=== PATIENT | female | born 1975 | race Caucasian/White ===

== ENCOUNTER 2019-11-09 21:44 | Inpatient (IN) | payer OTHER ==
[2019-11-09] MEDS ORDERED: SODIUM CHLORIDE 0.9% 500 ML INFUS.BAG IV ONE (22:24)
[2019-11-09] MEDS ORDERED: PANTOPRAZOLE SODIUM 40 MG VIAL IVPUSH ONE (22:25)
[2019-11-09] MEDS ORDERED: PANTOPRAZOLE SODIUM 40 MG VIAL ONE (22:30)
[2019-11-09] MEDS ORDERED: ONDANSETRON 4 MG/2 ML VIAL ONE (22:30)
[2019-11-09] MEDS ORDERED: ONDANSETRON 4 MG/2 ML VIAL IVPUSH ONE (22:39)
[2019-11-09] MEDS ORDERED: SODIUM CHLORIDE 0.9% 1000 ML INFUS.BAG IV ONE (22:46)
[2019-11-09 22:48] LABS: BASO % 0.2 % (0-2.0); EOS % 0.2 % (0-4.5); HEMATOCRIT 43.8 % (32.4-45.2); HEMOGLOBIN 14.6 GM/dL (10.7-15.3); LYMPH % 7.9 % (8-40); MCH 30.9 pg (25.7-33.7); MCHC 33.2 g/dl (32.0-36.0); MEAN CELL VOLUME 92.9 fl (80-96); MEAN PLT VOLUME 10.3 fl (7.5-11.1); MONO % 2.3 % (3.8-10.2); NEUT % 89.4 % (42.8-82.8); PLATELET COUNT 115 K/MM3 (134-434); RBC 4.72 M/mm3 (3.60-5.2); RDW 13.4 % (11.6-15.6); WHITE BLOOD COUNT 10.3 K/mm3 (4.0-10.0)
--- NOTE | 2019-11-09 22:53 | PDOC ---
History of Present Illness - General Chief Complaint: Nausea/Vomiting Stated Complaint: NAUSEA & VOMITING Time Seen by Provider: 11/09/19 22:08 - History of Present Illness Initial Comments: 44F PMH AF on metoprolol not on AC BIBEMS for severe N/V shortly after taking two new abx. Sx started two hours prior to arrival. Brown vomitus. PO intolerant. Last meal was chicken soup at 5pm. Pt being treated for sinusitis. Son is sick with similar sinusitis sx. Denies NSAIDs, etoh. prior cholecystectomy. No abd pain. Started having watery stool in ED. PCP Dr. Zhang Allergies reviewed Denies tobacco, etoh, drugs Past History - Past Medical History Allergies/Adverse Reactions: Allergies Allergy/AdvReac Type Severity Reaction Status Date / Time clarithromycin [From Biaxin] Allergy Verified 08/13/15 12:42 meperidine HCl [From Demerol] Allergy Verified 03/05/12 17:29 CODINE AdvReac Uncoded 11/10/19 01:42 Home Medications: Ambulatory Orders Fluoxetine HCl [Prozac -] 40 mg PO DAILY 03/05/12 Azithromycin [Zithromax Z-RASHMI (5 DAYS) -] 250 mg PO DAILY #6 tablet 08/13/15 Metoprolol Succinate [Toprol Xl] 25 mg PO DAILY 12/27/18 Cardiac Disorders: Yes (IRREGULAR HEART BEAT) COPD: No Psychiatric Problems: Yes (DEPRESSION) - Surgical History Cholecystectomy: Yes - Reproductive History (#): 2 Para: 2 - Psycho Social/Smoking Cessation Hx Smoking History: Current every day smoker Have you smoked in the past 12 months: Yes Number of Cigarettes Smoked Daily: 10 'Breaking Loose' booklet given: 08/13/15 Hx Alcohol Use: No Drug/Substance Use Hx: No Substance Use Type: None Review of Systems - Review of Systems Able to Perform ROS?: Yes Comments:: CONSTITUTIONAL: Endorses F / C HEENT: Endorses lightheadedness, dizziness, sore throat, rhinorrhea RESP: Endorses cough. Denies SOB, orthopnea, [place] CARD: Denies chest pain, palpitations GI: Endorses N/V, watery stool. Denies abdominal pain, bloody stool : Denies dysuria, frequency SKIN: Denies rashes NEURO: Denies numbness, tingling, weakness MSK: Denies back pain *Physical Exam - Physical Exam GEN: Sick appearing, NAD, pale. AAOx3 HEENT: NC/AT, EOMI, PERRLA. No facial asymmetry. Normal voice. Supple neck w/ FROM. CV: S1/S2, RRR, no m/r/g LUNG: CTAB, no wheezes, crackles, rales, rhonchi. GI: soft, ndnt, +BS, no guarding, no rebound. No masses. Neg CVAT b/l. EXTREMITIES: No obvious deformities of all extremities. SKIN: warm, dry, normal turgor PSYCH: normal mood and affect NEURO: Moving all extremities well. Ambulates w/ normal gait. ED Treatment Course - LABORATORY CBC & Chemistry Diagram: 11/11/19 05:18 11/11/19 05:18 - Medications Given in the ED: ED Medications Discontinued Medications Generic Name Dose Route Start Last Admin Trade Name Freq PRN Reason Stop Dose Admin Ondansetron HCl 4 mg 11/09/19 22:39 11/09/19 22:40 Zofran Injection IVPUSH 11/09/19 22:40 4 mg ONCE ONE Administration Pantoprazole Sodium 40 mg 11/09/19 22:25 11/09/19 22:40 Protonix Iv IVPUSH 11/09/19 22:26 40 mg ONCE ONE Administration Sodium Chloride 1,000 ml 11/09/19 22:24 11/09/19 22:40 Normal Saline - IV 11/09/19 22:25 1,000 ml ONCE ONE Administration Medical Decision Making - Medical Decision Making 11/09/19 22:43 44F BIBEMS for severe N/V soon after taking 2 new abx for sinusitis. Nontender exam. - CBC, CMP, Cardiac, Coags - UA, Preg - EKG - nausea ctrl - fluids Labs reviewed Elevated AST / ALT Obtain RUQ US 11/10/19 00:08 signed out to PM team Discharge - Discharge Information Problems reviewed: Yes Clinical Impression/Diagnosis: Intractable nausea and vomiting Condition: Guarded - Follow up/Referral - Patient Discharge Instructions - Post Discharge Activity
[2019-11-09 23:01] LABS: INR 1.02 (0.83-1.09)
[2019-11-09 23:04] LABS: ACTIVATED PTT 29.3 SECONDS (25.2-36.5)
[2019-11-09 23:16] LABS: ALBUMIN 4.2 g/dl (3.4-5.0); ALK PHOS 100 U/L (45-117); ANION GAP 8 MMOL/L (8-16); BILIRUBIN,TOTAL 0.4 mg/dL (0.2-1); BLOOD UREA NITROGEN 10.8 mg/dL (7-18); CALCIUM 9.4 mg/dL (8.5-10.1); CHLORIDE 103 mmol/L (98-107); CO2 28 mmol/L (21-32); CREATININE 0.8 mg/dL (0.55-1.3); GLUCOSE,RANDOM 153 mg/dL (74-106); LIPASE 178 U/L (73-393); POTASSIUM 3.8 mmol/L (3.5-5.1); SGOT/AST 95 U/L (15-37); SGPT/ALT 109 U/L (13-61); SODIUM 138 mmol/L (136-145); TOT PROT 7.6 g/dl (6.4-8.2)
[2019-11-09] MEDS ORDERED: METOCLOPRAMIDE HCL INJECTION 10 MG/2 ML VIAL IVPUSH ONE (23:27)
--- NOTE | 2019-11-09 23:38 | PDOC ---
Documentation entered by Ginny Wolf SCRIBE, acting as scribe for Gloria Carter DO. Gloria Carter DO: This documentation has been prepared by the naila, Ginny Wolf SCRIBE, under my direction and personally reviewed by me in its entirety. I confirm that the documentation accurately reflects all work, treatment, procedures, and medical decision making performed by me. Attending Attestation - Resident Resident Name: Reilly Murphy - ED Attending Attestation I have performed the following: I have examined & evaluated the patient, The case was reviewed & discussed with the resident, I agree w/resident's findings & plan, Exceptions are as noted - HPI HPI: 11/09/19 22:47 Patient is a 44 year old female with a significant PMH of A- Fib on metoprolol who presents to the ED with 2 hours of nausea and vomiting. Pt states her symptoms began after taking 2 newly prescribed antibiotics. She denies recent fevers, chills, headache or dizziness. She denies recent dysuria, frequency, urgency or hematuria. She denies recent chest pain or shortness of breath. - Physicial Exam PE: 11/09/19 23:35 Gen: aaox3, vomiting, dehydrated, pale heent: dry mm, cracked tongue neck: supple heart: +s1s2 tachy lungs: cta b/l abd: soft, mild diffuse ttp, no rebound or guarding, actively vomiting ext: no c/c/e, ambulatory in the ER with a steady gait - Medical Decision Making 11/09/19 23:36 a/p: 44yo female recently dx with sinusitis with n/v/d tonight -vomiting after taking abx - amox and eating chicken soup -no hives, no pruritis, no tongue or lip swelling -pt with n/v/d upon arrival -pt pale, weak -pt appears dehydrated -will send labs, ekg, ivf hydration, zofran, pepcid -will monitor and reassess 11/09/19 23:37 pt states still nauseated, no longer vomiting elevated lft, will send for ultrasound 11/09/19 23:37 mildly elevated wbc 11/10/19 01:14 pt is s/p leslye, ultrasound pending 11/10/19 01:16 ultrasound does not show an acute finding 11/10/19 01:21 pt with persistent n/v despite meds will add ativan 11/10/19 01:22 microblog sent to [facility] for admission 11/10/19 01:44 case discussed with [facility] who accepts pt to service for intractable n/v Discharge - Discharge Information Problems reviewed: Yes Clinical Impression/Diagnosis: Intractable nausea and vomiting Condition: Guarded - Admission Yes - Follow up/Referral Referrals: Ginny Zhang MD [Primary Care Provider] - - Patient Discharge Instructions - Post Discharge Activity
[2019-11-09] MEDS ORDERED: METOCLOPRAMIDE HCL INJECTION 10 MG/2 ML VIAL ONE (23:55)
[2019-11-10] MEDS ORDERED: LORazepam 2 MG/ML SDV VIAL ONE ×2 (01:25→11:38)
--- NOTE | 2019-11-10 01:50 | PDOC ---
*Physical Exam - Vital Signs Last Vital Signs Temp Pulse Resp BP Pulse Ox 98.3 F 61 18 131/77 100 11/09/19 22:15 11/10/19 01:15 11/10/19 01:15 11/10/19 01:15 11/10/19 01:15 ED Treatment Course - LABORATORY CBC & Chemistry Diagram: 11/09/19 22:35 11/09/19 22:35 - ADDITIONAL ORDERS Additional order review: Laboratory Results 11/09/19 11/09/19 11/09/19 22:35 22:35 22:35 PT with INR 12.00 INR 1.02 PTT (Actin FS) 29.3 Sodium Potassium Chloride Carbon Dioxide Anion Gap BUN Creatinine Est GFR (CKD-EPI)AfAm Est GFR (CKD-EPI)NonAf Random Glucose Calcium Total Bilirubin AST ALT Alkaline Phosphatase Creatine Kinase Troponin I Total Protein Albumin Lipase Serum , Qual Negative Blood Type O POSITIVE Antibody Screen Negative 11/09/19 11/09/19 22:35 22:35 PT with INR INR PTT (Actin FS) Sodium 138 Potassium 3.8 Chloride 103 Carbon Dioxide 28 Anion Gap 8 BUN 10.8 Creatinine 0.8 Est GFR (CKD-EPI)AfAm 105.39 Est GFR (CKD-EPI)NonAf 90.93 Random Glucose 153 H Calcium 9.4 Total Bilirubin 0.4 AST 95 H ALT 109 H Alkaline Phosphatase 100 Creatine Kinase 68 Cancelled Troponin I < 0.02 Cancelled Total Protein 7.6 Albumin 4.2 Lipase 178 Serum , Qual Blood Type Antibody Screen 11/09/19 22:35 RBC 4.72 MCV 92.9 MCHC 33.2 RDW 13.4 MPV 10.3 Neutrophils % 89.4 H Lymphocytes % 7.9 L Monocytes % 2.3 L Eosinophils % 0.2 Basophils % 0.2 - Medications Given in the ED: ED Medications Discontinued Medications Generic Name Dose Route Start Last Admin Trade Name Freq PRN Reason Stop Dose Admin Lorazepam 1 mg 11/10/19 01:20 11/10/19 01:30 Ativan Injection - IVPUSH 11/10/19 01:21 1 mg ONCE ONE Administration Metoclopramide HCl 10 mg 11/09/19 23:27 11/10/19 00:02 Reglan Injection - IVPUSH 11/09/19 23:28 10 mg ONCE ONE Administration Ondansetron HCl 4 mg 11/09/19 22:39 11/09/19 22:40 Zofran Injection IVPUSH 11/09/19 22:40 4 mg ONCE ONE Administration Pantoprazole Sodium 40 mg 11/09/19 22:25 11/09/19 22:40 Protonix Iv IVPUSH 11/09/19 22:26 40 mg ONCE ONE Administration Sodium Chloride 1,000 ml 11/09/19 22:24 11/09/19 22:40 Normal Saline - IV 11/09/19 22:25 1,000 ml ONCE ONE Administration Sodium Chloride 1,000 ml 11/09/19 22:46 11/10/19 00:01 Normal Saline - IV 11/09/19 22:47 1,000 ml ONCE ONE Administration Medical Decision Making - Medical Decision Making 11/10/19 01:48 44F BIBEMS for severe N/V soon after taking 2 new abx for sinusitis. Nontender exam. -labs with mildly elevated ALT and AST, WBC 10.3 -will f/u abd US 11/10/19 01:49 US without signs of acute leslye persistent n/v; will administer ativan endorsed to admitting team for persistent n/v and need for IVF; admitted to Dr zhao Discharge - Discharge Information Problems reviewed: Yes Clinical Impression/Diagnosis: Intractable nausea and vomiting Condition: Guarded - Follow up/Referral Referrals: Ginny Zhang MD [Primary Care Provider] - - Patient Discharge Instructions - Post Discharge Activity
--- NOTE | 2019-11-10 02:11 | PN ---
Teaching Attending Note Name of Resident: Reilly Phillips ATTENDING PHYSICIAN STATEMENT I saw and evaluated the patient. I reviewed the resident's note and discussed the case with the resident. I agree with the resident's findings and plan as documented. SUBJECTIVE: Patient is a 44 year old woman with a PMH of Depression, Pancreatitis, Cholecystectomy, Tobacco use and AFib (not on anticoagulation) who presents to the ER with 2 hours of nausea and vomiting. Patient states her symptoms began after taking 2 newly prescribed antibiotics for sinusitis (?Amoxicillin). Her son is sick with similar sinusitis symptoms. Last meal was chicken soup at 5 pm. She denies recent fevers, chills, chest pain, SOB, headache, dizziness, dysuria, frequency, urgency or hematuria. Started having watery stool in ER. No recent travel. Denies alcohol, tobacco or any other illicit drug use besides marijuana. Serum test was negative in the ER. OBJECTIVE: Alert Vital Signs Period Temp Pulse Resp BP Sys/Hall Pulse Ox Last 24 Hr 98.3 F 61-67 18-18 131-135/77-82 100-100 HEENT: No Jaundice, eye redness or discharge, PERRLA, EOMI. Normocephalic, atraumatic. External ears are normal and hearing is grossly intact. No nasal discharge. Neck: Supple, nontender. No palpable adenopathy or thyromegaly. No JVD Chest: Good effort. Clear to auscultation and percussion. Heart: Regular. No S3, rub or murmur Abdomen: Not distended, soft, nontender and no HSM. No rebound or guarding. Normal bowel sounds. Ext: Peripheral pulses intact. No leg edema. Skin: Warm and dry. No petechiae, rash or ecchymosis. Neuro: Alert. Oriented x3. CN 2-12 grossly intact. Sensation grossly intact in all four extremities and DTR are symmetric. Psych: Appropriate mood and affect. Good insight. Home Medications Medication Instructions Recorded Fluoxetine HCl [Prozac] 40 mg PO DAILY 08/13/15 Metoprolol Succinate [Toprol Xl] 25 mg PO DAILY 12/27/18 Abnormal Lab Results 11/09/19 11/09/19 22:35 22:35 WBC 10.3 H Plt Count 115 L Absolute Neuts (auto) 9.2 H Neutrophils % 89.4 H Lymphocytes % 7.9 L Monocytes % 2.3 L Random Glucose 153 H AST 95 H ALT 109 H ASSESSMENT AND PLAN: 1. Gastroenteritis - Sonogram of the abdomen didnot reveal any acute abnormality. Low platelets and elevated LFTs are concerning. Will get stat urinalysis, urine toxicology, EKG, CT abdomen/pelvis with contrast, CXR and hepatitis serology. Send diarrheal stool for ova&parasites, leukocytes and C.diff toxin. Check HbA1c. Continue IV NS. Will decide if she needs antibiotics after workup is concluded. Will continue comprehensive care for all of patient s comorbid conditions including metoprolol for Afib. Consult cardiology - why no anticoagulation. 2. Tobacco Use Counseled on risks associated with tobacco use. We will provide patient all the necessary assistance to facilitate smoking cessation and prescribe Nicotine patch. 3. DVT prophylaxis - Lovenox 40 mg SQ q 24 hours. 4. Advance directives - Full code
--- NOTE | 2019-11-10 02:28 | HP ---
CHIEF COMPLAINT: PCP: HISTORY OF PRESENT ILLNESS: 44 yo F PMH of Afib( not on AC ) , hx of pancreatitis , s/p cholecystecomy, presents to ED with intractable n/v x 1 day. pt states that she began feeling sick about a week ago after her son at home was sick . she had cough, fevers, myalgia. she went to her PCP today who started her on augmentin. pt states that shortly after she became nauseas and has vomited several times. she also endorses diarrhea starting today. she states her son at home does not have vomiting or diarrhea. she has no recent travel. ER course was notable for: (1)US: normal CBD, no acute findings (2)s/p 2L IVF, zofran, reglan, ativan (3) Labs show transaminitis Recent Travel:denies PAST MEDICAL HISTORY: Afib( not on AC ) , hx of pancreatitis , s/p cholecystecomy PAST SURGICAL HISTORY: cholecystectomy Social History: Smokin pk year Alcohol:social Drugs: +marijuana Allergies meperidine HCl [From Demerol] Allergy (Severe, Verified 11/10/19 01:42) Difficulty Breathing clarithromycin [From Biaxin] Allergy (Unknown, Verified 11/10/19 01:42) Rash CODINE Adverse Reaction (Uncoded 11/10/19 01:42) GI UPSET HOME MEDICATIONS: Home Medications Medication Instructions Recorded Fluoxetine HCl [Prozac] 40 mg PO DAILY 08/13/15 Metoprolol Succinate [Toprol Xl] 25 mg PO DAILY 12/27/18 REVIEW OF SYSTEMS CONSTITUTIONAL: Presnt: fever, weakness Absent: chills, diaphoresis, malaise, loss of appetite, weight change HEENT: Absent: rhinorrhea, nasal congestion, throat pain, throat swelling, difficulty swallowing, mouth swelling, ear pain, eye pain, visual changes CARDIOVASCULAR: Absent: chest pain, syncope, palpitations, irregular heart rate, lightheadedness , peripheral edema RESPIRATORY: Present: cough Absent: shortness of breath, dyspnea with exertion, orthopnea, wheezing, stridor , hemoptysis GASTROINTESTINAL: Present: abdominal pain, nausea, vomiting, diarrhea Absent: abdominal distension,constipation, melena, hematochezia GENITOURINARY: Absent: dysuria, frequency, urgency, hesitancy, hematuria, flank pain, genital pain MUSCULOSKELETAL: Present: myalgia Absent: arthralgia, joint swelling, back pain, neck pain SKIN: Absent: rash, itching, pallor HEMATOLOGIC/IMMUNOLOGIC: Absent: easy bleeding, easy bruising, lymphadenopathy, frequent infections ENDOCRINE: Absent: unexplained weight gain, unexplained weight loss, heat intolerance, cold intolerance NEUROLOGIC: Absent: headache, focal weakness or paresthesias, dizziness, unsteady gait, seizure, mental status changes, bladder or bowel incontinence PSYCHIATRIC: Absent: anxiety, depression, suicidal or homicidal ideation, hallucinations. PHYSICAL EXAMINATION Vital Signs - 24 hr 11/09/19 11/10/19 22:15 01:15 Temperature 98.3 F Pulse Rate 67 Pulse Rate [ 61 Radial] Respiratory 18 18 Rate Blood Pressure 135/82 Blood Pressure 131/77 [Left Arm] O2 Sat by Pulse 100 100 Oximetry (%) GENERAL: Awake, alert, and fully oriented, in no acute distress. HEAD: Normal with no signs of trauma. EYES: Pupils equal, round and reactive to light, extraocular movements intact, sclera anicteric, conjunctiva clear. No lid lag. EARS, NOSE, THROAT: nares patent, oropharynx clear without exudates. Moist mucous membranes. NECK: Normal range of motion, supple without lymphadenopathy, JVD, or masses. LUNGS: Breath sounds equal, clear to auscultation bilaterally. No wheezes, and no crackles. No accessory muscle use. HEART: Regular rate and rhythm, normal S1 and S2 without murmur, rub or gallop. ABDOMEN: Soft, tender to palpation at RUQ and epigastrium, not distended, normoactive bowel sounds, no guarding, no rebound, no masses. MUSCULOSKELETAL: Normal range of motion at all joints. No bony deformities or tenderness. No CVA tenderness. UPPER EXTREMITIES: 2+ pulses, warm, well-perfused. No cyanosis. No clubbing. No peripheral edema. LOWER EXTREMITIES: 2+ pulses, warm, well-perfused. No calf tenderness. No peripheral edema. NEUROLOGICAL: Cranial nerves II-XII intact. Normal speech PSYCHIATRIC: Cooperative. Good eye contact. Appropriate mood and affect. SKIN: Warm, dry, normal turgor, no rashes or lesions noted, normal capillary refill. Laboratory Last Values WBC 10.3 K/mm3 (4.0-10.0) H 11/09/19 22:35 RBC 4.72 M/mm3 (3.60-5.2) 11/09/19 22:35 Hgb 14.6 GM/dL (10.7-15.3) 11/09/19 22:35 Hct 43.8 % (32.4-45.2) 11/09/19 22:35 MCV 92.9 fl (80-96) 11/09/19 22:35 MCH 30.9 pg (25.7-33.7) 11/09/19 22:35 MCHC 33.2 g/dl (32.0-36.0) 11/09/19 22:35 RDW 13.4 % (11.6-15.6) 11/09/19 22:35 Plt Count 115 K/MM3 (134-434) L 11/09/19 22:35 MPV 10.3 fl (7.5-11.1) 11/09/19 22:35 Absolute Neuts (auto) 9.2 K/mm3 (1.5-8.0) H 11/09/19 22:35 Neutrophils % 89.4 % (42.8-82.8) H 11/09/19 22:35 Lymphocytes % 7.9 % (8-40) L 11/09/19 22:35 Monocytes % 2.3 % (3.8-10.2) L 11/09/19 22:35 Eosinophils % 0.2 % (0-4.5) 11/09/19 22:35 Basophils % 0.2 % (0-2.0) 11/09/19 22:35 Nucleated RBC % 0 % (0-0) 11/09/19 22:35 PT with INR 12.00 SEC (9.7-13.0) 11/09/19 22:35 INR 1.02 (0.83-1.09) 11/09/19 22:35 PTT (Actin FS) 29.3 SECONDS (25.2-36.5) 11/09/19 22:35 Sodium 138 mmol/L (136-145) 11/09/19 22:35 Potassium 3.8 mmol/L (3.5-5.1) 11/09/19 22:35 Chloride 103 mmol/L (98-107) 11/09/19 22:35 Carbon Dioxide 28 mmol/L (21-32) 11/09/19 22:35 Anion Gap 8 MMOL/L (8-16) 11/09/19 22:35 BUN 10.8 mg/dL (7-18) 11/09/19 22:35 Creatinine 0.8 mg/dL (0.55-1.3) 11/09/19 22:35 Est GFR (CKD-EPI)AfAm 105.39 11/09/19 22:35 Est GFR (CKD-EPI)NonAf 90.93 11/09/19 22:35 Random Glucose 153 mg/dL (74-106) H 11/09/19 22:35 Calcium 9.4 mg/dL (8.5-10.1) 11/09/19 22:35 Total Bilirubin 0.4 mg/dL (0.2-1) 11/09/19 22:35 AST 95 U/L (15-37) H 11/09/19 22:35 ALT 109 U/L (13-61) H 11/09/19 22:35 Alkaline Phosphatase 100 U/L (45-117) 11/09/19 22:35 Creatine Kinase 68 U/L (26-192) 11/09/19 22:35 Troponin I < 0.02 ng/ml (0.00-0.05) 11/09/19 22:35 Total Protein 7.6 g/dl (6.4-8.2) 11/09/19 22:35 Albumin 4.2 g/dl (3.4-5.0) 11/09/19 22:35 Lipase 178 U/L (73-393) 11/09/19 22:35 Serum , Qual Negative 11/09/19 22:35 Blood Type O POSITIVE 11/09/19 22:35 Antibody Screen Negative 11/09/19 22:35 Abdomen U/S : Liver mildly enlarged 18.6 cm. Post cholecystectomy. No abnormalities of the gallbladder fossa. Normal common bile duct measuring 3.7 mm in diameter. No right hydronephrosis. No right upper quadrant free fluid. No acute abnormalities. ASSESSMENT/PLAN: 44 yo F PMH of Afib( not on AC ) , hx of pancreatitis , s/p cholecystecomy, presents to ED with intractable n/v x 1 day. intractable vomiting -likely 2/2 gastroenteritis - c/w IVF @ 100 mls/ hr - s/p ativan, zofran, reglan - U/S showing normal CBD, no acute abnormalities -pending CT abdomen / pelvis -pending UA - pending Utox, pt states she last used marijuana was on wednesday, denies any recent alcohol use -if diarrhea continues, consider Cdif testing ,stool for ova and parasites - pending flu, RSV Transaminitis - possibly 2/2 augmentin - pending CT abdomen/ pelvis Afib, not on AC - on metoprolol 25 -cardio recs appreciated Dispo: admit to med/surg Visit type - Emergency Visit Emergency Visit: Yes ED Registration Date: 11/10/19 Care time: The patient presented to the Emergency Department on the above date and was hospitalized for further evaluation of their emergent condition. - New Patient This patient is new to me today: Yes Date on this admission: 11/10/19 - Critical Care Critical Care patient: No ATTENDING PHYSICIAN STATEMENT I saw and evaluated the patient. I reviewed the resident's note and discussed the case with the resident. I agree with the resident's findings and plan as documented. SUBJECTIVE: OBJECTIVE: ASSESSMENT AND PLAN:
[2019-11-10] MEDS ORDERED: SODIUM CHLORIDE 1,000 ML IV SCH (04:15)
[2019-11-10 06:12] LABS: BASO % 0.2 % (0-2.0); HEMATOCRIT 35.8 % (32.4-45.2); HEMOGLOBIN 12.3 GM/dL (10.7-15.3); LYMPH % 6.7 % (8-40); MCH 31.4 pg (25.7-33.7); MCHC 34.3 g/dl (32.0-36.0); MEAN CELL VOLUME 91.4 fl (80-96); MEAN PLT VOLUME 10.1 fl (7.5-11.1); MONO % 2.7 % (3.8-10.2); NEUT % 90.4 % (42.8-82.8); PLATELET COUNT 81 K/MM3 (134-434); RBC 3.92 M/mm3 (3.60-5.2); RDW 13.2 % (11.6-15.6); WHITE BLOOD COUNT 7.5 K/mm3 (4.0-10.0)
[2019-11-10 06:25] LABS: ALBUMIN 3.6 g/dl (3.4-5.0); BILIRUBIN,TOTAL 0.3 mg/dL (0.2-1); BLOOD UREA NITROGEN 10.5 mg/dL (7-18); CALCIUM 8.2 mg/dL (8.5-10.1); CREATININE 0.7 mg/dL (0.55-1.3); MAGNESIUM 1.7 mg/dL (1.8-2.4); PHOSPHOROUS 3.6 mg/dL (2.5-4.9); TOT PROT 6.4 g/dl (6.4-8.2)
[2019-11-10 07:44] LABS: COCAINE, UR NEGATIVE ng/ml (CUTOFF=300); METHADONE, UR NEGATIVE ng/ml (CUTOFF=300); OPIATES, URI NEGATIVE ng/ml (CUTOFF=300); PHENCYCLIDINE,URINE NEGATIVE ng/ml (CUTOFF=25); URINE AMPHETAMINES NEGATIVE ng/ml (CUTOFF=500); URINE BARBITURATES NEGATIVE ng/ml (CUTOFF=200); URINE BENZODIAZEPINES NEGATIVE ng/ml (CUTOFF=200)
--- NOTE | 2019-11-10 08:26 | PN ---
Progress Note (short form) - Note Progress Note: Seen in ED awaiting telemetry bed. Continues to c/o nausea. Zofran and reglan with little effect. Received dose of ativan overnight with best effect on nausea. Can give additional dose if effective. Can try one dose of emend if n/v persists. Dr Chapin to see patient. PE GENERAL: Awake, alert, and fully oriented, in mild distress. r/t nausea HEAD: Normal with no signs of trauma. EYES: Pupils equal, round and reactive to light, extraocular movements intact, sclera anicteric, conjunctiva clear. No lid lag. EARS, NOSE, THROAT: nares patent, oropharynx clear without exudates. Moist mucous membranes. NECK: Normal range of motion, supple without lymphadenopathy, JVD, or masses. LUNGS: Breath sounds equal, clear to auscultation bilaterally. No wheezes, and no crackles. No accessory muscle use. HEART: Regular rate and rhythm, normal S1 and S2 without murmur, rub or gallop. ABDOMEN: Soft, tender to palpation at RUQ and epigastrium, not distended, normoactive bowel sounds, no guarding, no rebound, no masses. MUSCULOSKELETAL: Normal range of motion at all joints. No bony deformities or tenderness. No CVA tenderness. UPPER EXTREMITIES: 2+ pulses, warm, well-perfused. No cyanosis. No clubbing. No peripheral edema. LOWER EXTREMITIES: 2+ pulses, warm, well-perfused. No calf tenderness. No peripheral edema. NEUROLOGICAL: Cranial nerves II-XII intact. Normal speech PSYCHIATRIC: Cooperative. Good eye contact. Appropriate mood and affect. SKIN: Warm, dry, normal turgor, no rashes or lesions noted, normal capillary refill. Problem List - Problems (1) Afib Code(s): I48.91 - UNSPECIFIED ATRIAL FIBRILLATION (2) Pancreatitis Code(s): K85.90 - ACUTE PANCREATITIS WITHOUT NECROSIS OR INFECTION, UNSP (3) Nausea & vomiting Code(s): R11.2 - NAUSEA WITH VOMITING, UNSPECIFIED (4) Prophylactic measure Code(s): Z29.9 - ENCOUNTER FOR PROPHYLACTIC MEASURES, UNSPECIFIED Visit type - Emergency Visit Emergency Visit: Yes ED Registration Date: 11/10/19 Care time: The patient presented to the Emergency Department on the above date and was hospitalized for further evaluation of their emergent condition. - New Patient This patient is new to me today: Yes Date on this admission: 11/10/19 - Critical Care Critical Care patient: No - Discharge Referral Referred to [facility] No
--- NOTE | 2019-11-10 08:36 | CON.CARD ---
Consult Consult Specialty:: Cardiology Referred by:: Leobardo Lamb Reason for Consultation:: History of AFIB - History of Present Illness Chief Complaint: Diarrhea, nausea, vomiting History of Present Illness: 44 F with h/o PAF ([id number] = O) on Metoprolol presents to ER w/ one day of severe N/V and diarrhea. Son had virus few days ago. Fevers at home. Denies CP, SOB, palps. Denies edema. Denies syncope. Currently in NSR - History Source History Provided By: Patient Limitations to Obtaining History: No Limitations - Past Medical History Cardio/Vascular: Yes: AFIB Pulmonary: No: Asthma, Bronchitis, Cancer, COPD, O2 Dependent, Pneumonia, Previously Intubated, Pulmonary Embolus, Pulmonary Fibrosis, Sleep Apnea, Other Gastrointestinal: No: Ascites, Cancer, Constipation, Crohn's Disease, Diverticulitis, Diverticulosis, Esophageal Varices, Gastritis, GERD, GI Bleed, Hemorrhoids, Hiatal Hernia, Inflamatory Bowel Disease, Irritable Bowel Disease, Pancreatitis, Peptic Ulcer Disease, Ulcerative Colitis, Other Hepatobiliary: No: Cirrhosis, Cholelithiasis, Cholecystitis, Choledocholithiasis , Hepatitis A, Hepatitis B, Hepatitis C, Other Renal/: No: Renal Failure, Renal Inusuff, BPH, Cancer, Hematuria, Hemodialysis , Neurogenic Bladder, Renal Calculi, UTI, Other Reproductive: No: Ectopic , Endometriosis, Fibroids, PID, Polycystic Ovary Syndrome, Postmenopausal, Other ...LMP: 11/18/18 Infectious Disease: No: AIDS, C-Diff, Herpes Zoster, HIV, MRSA, STD's, Tuberculosis, VREF, Other Psych: No: Addictions, Anxiety, Bipolar, Depression, Panic, Psychosis, Schizophrenia, Other Musculoskeletal: No: Bursitis, Chronic low back pain, Hemiparesis, Hemiplegia, Osteoarthritis, Paraplegia, Other Rheumatology: No: Fibromyalgia, Gout, Lupus, Rheumatoid Arthritis, Sarcoidosis, Vasculitis, Other ENT: No: Allergic Rhinitis, Sinusitis, Other Endocrine: No: [place]'s Disease, [place]'s Disease, Diabetes Insipidus, Diabetes Mellitus, Hyperparathyroidism, Hyperthyroidism, Hypothyroidism, Osteopenia, SIADH, Other Dermatology: No: Basal Cell, Cellulitis, Eczema, Melanoma, Psoriasis, Squamous Cell, Other - Alcohol/Substance Use Hx Alcohol Use: No History of Substance Use: reports: Marijuana - Smoking History Smoking history: Current every day smoker Have you smoked in the past 12 months: Yes Aproximately how many cigarettes per day: 10 - Social History ADL: Independent History of Recent Travel: No Home Medications - Allergies Allergies/Adverse Reactions: Allergies Allergy/AdvReac Type Severity Reaction Status Date / Time meperidine HCl [From Demerol] Allergy Severe Difficulty Verified 11/10/19 01:42 Breathing clarithromycin [From Biaxin] Allergy Unknown Rash Verified 11/10/19 01:42 CODINE AdvReac Uncoded 11/10/19 01:42 - Home Medications Home Medications: Ambulatory Orders Fluoxetine HCl [Prozac] 40 mg PO DAILY 08/13/15 Metoprolol Succinate [Toprol Xl] 25 mg PO DAILY 12/27/18 Family Medical History Family History: Unremarkable Review of Systems - Review of Systems Constitutional: reports: Chills Eyes: reports: No Symptoms HENT: reports: No Symptoms Neck: reports: No Symptoms Cardiovascular: reports: No Symptoms Gastrointestinal: reports: Abdominal Pain, Diarrhea, Vomiting Genitourinary: denies: No Symptoms, Burning, Discharge, Dysuria, Flank Pain, Frequency, Hematuria, Incontinence, Lesions, Menses, Pain, Testicular Mass, Testicular Pain, Testicular Swelling, Urgency, Vaginal Bleeding, Other Breasts: denies: No Symptoms Reported, See HPI, Breast Implants, Discharge from Nipple, Lumps, Pain, Skin Changes, Other Musculoskeletal: denies: No Symptoms, Back Pain, Crepitus, Decreased ROM, Extremity Pain, Joint Pain, Joint Swelling, Muscle Pain, Muscle Cramps, Muscle Weakness, Other Integumentary: denies: No Symptoms, Blister, Bruising, Change in Color, Eczema, Erythema, Incision, Lesions, Lump, Pallor, Pruritis, Rash, Wound, Other Neurological: denies: No Symptoms, Change in LOC, Change in Speech, Confusion, Dizziness, Headache, Incoordination, Numbness, Parasthesia, Pre-Existing Deficit , Seizure, Syncope, Tremors, Unsteady Gait, Weakness, Other Endocrine: denies: No Symptoms, Excessive Sweating, Flushing, Increased Hunger, Increased Thirst, Intolerance to Cold, Intolerance to Heat, Unexplained Weight Gain, Unexplained Weight Loss, Other Hematology/Lymphatic: denies: No Symptoms, Easily Bruised, Excessive Bleeding, Swollen Glands, Other Psychiatric: denies: No Symptoms, Altered Sleep Pattern, Anxiety, Depression, Hallucinations, Panic, Paranoia, Suicidal, Other - Risk Factors Known Risk Factors: No: Age, Diabetes Mellitus, Family History, Gender, Hypercholesterolemia, Hypertension, Physical Inactivity, Prior SC /Emb Stroke, Race, Smoking, Other Vital Signs: Vital Signs Temperature 98.3 F 11/09/19 22:15 Pulse Rate 61 11/10/19 01:15 Respiratory Rate 18 11/10/19 01:15 Blood Pressure 131/77 11/10/19 01:15 O2 Sat by Pulse Oximetry (%) 99 11/10/19 04:22 Constitutional: Yes: No Distress, Calm Eyes: Yes: Conjunctiva Clear Respiratory: Yes: CTA Bilaterally Gastrointestinal: Yes: Soft (NT) Renal/: Yes: WNL Cardiovascular: Yes: Regular Rate and Rhythm JVD: No Carotid Bruit: No Heart Sounds: Yes: S1, S2 (rrr, no M/R/G) Edema: No Peripheral Pulses WNL: Yes Neurological: Yes: Alert, Oriented ...Motor Strength: WNL Psychiatric: Yes: WNL - Other Data Labs, Other Data: CBC, BMP 11/10/19 05:42 11/10/19 05:42 INR, PTT INR 1.02 (0.83-1.09) 11/09/19 22:35 Troponin, BNP 11/09/19 11/09/19 22:35 22:35 Troponin I Cancelled < 0.02 Troponin, BNP 11/09/19 11/09/19 22:35 22:35 Troponin I Cancelled < 0.02 Imaging - Results EKG: Image Reviewed Assessment/Plan IMP: Probable/suspected viral gastroenteritis Thrombocytopenia probably due to viral illness PAF, [id number] = 0 REC: 1. Treatment of gastroenteritis as per PMD: hydration, supportive measures 2. Keep K+ and MG2+ repleted. 3. Can continue home Metoprolol unless she becomes hypotensive 4. F/u CT scan 5. Monitor platelets. 6. Does not require AC. Can consider intermediate project manager low dose ASA but would hold at this time and defer to the outpatient setting Will follow Please call if any questions or concerns.
[2019-11-10] MEDS ORDERED: METOCLOPRAMIDE HCL INJECTION 10 MG/2 ML VIAL IVPUSH PRN (09:04)
[2019-11-10] MEDS ORDERED: ONDANSETRON 4 MG/2 ML VIAL IVPUSH PRN (09:04)
[2019-11-10] MEDS ORDERED: ONDANSETRON 4 MG/2 ML VIAL ONE (09:23)
[2019-11-10] MEDS ORDERED: METOCLOPRAMIDE HCL INJECTION 10 MG/2 ML VIAL ONE (09:23)
[2019-11-10] MEDS: ENOXAPARIN NA (PORCINE) 40 MG/0.4 ML DISP.SYRIN SQ SCH (10:05)
[2019-11-10] MEDS ORDERED: LORazepam 2 MG/ML SDV VIAL IVPUSH PRN (11:28)
[2019-11-10] MEDS: SODIUM CHLORIDE 1,000 ML IV SCH (11:36)
[2019-11-10 12:56] LABS: URINE APPEARANCE CLEAR; URINE BILIRUBIN NEGATIVE (NEGATIVE); URINE COLOR YELLOW; URINE GLUCOSE (UA) NEGATIVE (NEGATIVE); URINE KETONE TRACE (NEGATIVE)
[2019-11-10 12:57] LABS: URINE LEUK ESTERASE NEGATIVE (NEGATIVE); URINE NITRITE NEGATIVE (NEGATIVE); URINE PROTEIN TRACE (NEGATIVE); URINE UROBILINOGEN 0.2 mg/dL (0.2-1.0)
--- NOTE | 2019-11-10 15:19 | CON.GI ---
Consult Consult Specialty:: GI - History of Present Illness History of Present Illness: 44 y/o F with PMH of pancreatitis at age of 16 was doing well untill 4 days prior to the admission when she developed Fever associated with productive cough. She saw her PMD yesterday. She took a dose of Amoxcillin . A few hours later developed nausea, vomiting, diffuse abdominal pain, and diarrhea. Ct was done which revealed pancolitis and 6 mm cyst in the tail of the pancreas, could r/o dilated pancreatic duct. This afternoon the diarrhea and abdominal pain resolved. Her son has flu like symptoms - Past Medical History Cardio/Vascular: Yes: AFIB Pulmonary: No: Asthma, Bronchitis, Cancer, COPD, O2 Dependent, Pneumonia, Previously Intubated, Pulmonary Embolus, Pulmonary Fibrosis, Sleep Apnea, Other Gastrointestinal: No: Ascites, Cancer, Constipation, Crohn's Disease, Diverticulitis, Diverticulosis, Esophageal Varices, Gastritis, GERD, GI Bleed, Hemorrhoids, Hiatal Hernia, Inflamatory Bowel Disease, Irritable Bowel Disease, Pancreatitis, Peptic Ulcer Disease, Ulcerative Colitis, Other Hepatobiliary: No: Cirrhosis, Cholelithiasis, Cholecystitis, Choledocholithiasis , Hepatitis A, Hepatitis B, Hepatitis C, Other Renal/: No: Renal Failure, Renal Inusuff, BPH, Cancer, Hematuria, Hemodialysis , Neurogenic Bladder, Renal Calculi, UTI, Other ...LMP: 11/18/18 Infectious Disease: No: AIDS, C-Diff, Herpes Zoster, HIV, MRSA, STD's, Tuberculosis, VREF, Other Psych: No: Addictions, Anxiety, Bipolar, Depression, Panic, Psychosis, Schizophrenia, Other Musculoskeletal: No: Bursitis, Chronic low back pain, Hemiparesis, Hemiplegia, Osteoarthritis, Paraplegia, Other Rheumatology: No: Fibromyalgia, Gout, Lupus, Rheumatoid Arthritis, Sarcoidosis, Vasculitis, Other ENT: No: Allergic Rhinitis, Sinusitis, Other Endocrine: No: Craig's Disease, Jos[place]'s Disease, Diabetes Insipidus, Diabetes Mellitus, Hyperparathyroidism, Hyperthyroidism, Hypothyroidism, Osteopenia, SIADH, Other Dermatology: No: Basal Cell, Cellulitis, Eczema, Melanoma, Psoriasis, Squamous Cell, Other - Alcohol/Substance Use Hx Alcohol Use: No History of Substance Use: reports: Marijuana - Smoking History Smoking history: Current every day smoker Have you smoked in the past 12 months: Yes Aproximately how many cigarettes per day: 10 - Social History ADL: Independent History of Recent Travel: No Home Medications - Allergies Allergies/Adverse Reactions: Allergies Allergy/AdvReac Type Severity Reaction Status Date / Time clarithromycin [From Biaxin] Allergy Verified 08/13/15 12:42 meperidine HCl [From Demerol] Allergy Verified 03/05/12 17:29 CODINE AdvReac Uncoded 11/10/19 01:42 - Home Medications Home Medications: Ambulatory Orders Fluoxetine HCl [Prozac -] 40 mg PO DAILY 03/05/12 Azithromycin [Zithromax Z-RASHMI (5 DAYS) -] 250 mg PO DAILY #6 tablet 08/13/15 Metoprolol Succinate [Toprol Xl] 25 mg PO DAILY 12/27/18 Physical Exam-GI Vital Signs: Vital Signs Temperature 98.2 F 11/10/19 13:50 Pulse Rate 74 11/10/19 14:15 Respiratory Rate 16 11/10/19 14:15 Blood Pressure 110/64 11/10/19 14:15 O2 Sat by Pulse Oximetry (%) 99 11/10/19 14:15 Constitutional: Yes: Well Nourished Eyes: Yes: Conjunctiva Clear HENT: Yes: Atraumatic Neck: Yes: Trachea Midline Cardiovascular: Yes: Regular Rate and Rhythm Respiratory: Yes: CTA Bilaterally ...Palpate: Yes: Soft. No: Firm/Rigid, Guarding, Hepatomegaly, Mass, Pulsatile Mass, Splenomegaly, Tenderness Labs: CBC, BMP 11/10/19 05:42 11/10/19 05:42 INR, PTT INR 1.02 (0.83-1.09) 11/09/19 22:35 Hepatic Panel Total Bilirubin 0.3 mg/dL (0.2-1) 11/10/19 05:42 AST 61 U/L (15-37) H 11/10/19 05:42 ALT 85 U/L (13-61) H 11/10/19 05:42 Alkaline Phosphatase 84 U/L (45-117) 11/10/19 05:42 Albumin 3.6 g/dl (3.4-5.0) 11/10/19 05:42 Problem List - Problems (1) Infectious diarrhea Assessment/Plan: R> stool culture Ceftriaxone 1 gram daily IV hydration Code(s): A09 - INFECTIOUS GASTROENTERITIS AND COLITIS, UNSPECIFIED (2) Pancreatic cyst Assessment/Plan: 6mm in the pancreatic tail R> will need MRI of the pancreas ca19-9, cea, ca125 Code(s): K86.2 - CYST OF PANCREAS (3) Elevated liver enzymes Assessment/Plan: most likely secondary to dehydration Code(s): R74.8 - ABNORMAL LEVELS OF OTHER SERUM ENZYMES (4) Acute bronchitis Assessment/Plan: R> continue Ceftriaxone Code(s): J20.9 - ACUTE BRONCHITIS, UNSPECIFIED (5) Thrombocytopenia Assessment/Plan: most likley secondary to sepsis Code(s): D69.6 - THROMBOCYTOPENIA, UNSPECIFIED
[2019-11-10] MEDS ORDERED: CEFTRIAXONE 1 GM/50 ML BAG ONE (15:53)
[2019-11-10] MEDS: CEFTRIAXONE 1 GM in DEXTROSE 5%-WATER - 50 ML IVPB SCH (15:57)
[2019-11-10 20:02] VITALS: BMI 28.3
[2019-11-11 06:05] LABS: BASO % 0.2 % (0-2.0); EOS % 0.2 % (0-4.5); HEMATOCRIT 35.6 % (32.4-45.2); LYMPH % 30.7 % (8-40); MCH 31.1 pg (25.7-33.7); MCHC 33.6 g/dl (32.0-36.0); MEAN CELL VOLUME 92.5 fl (80-96); MEAN PLT VOLUME 10.2 fl (7.5-11.1); MONO % 8.7 % (3.8-10.2); NEUT % 60.2 % (42.8-82.8); PLATELET COUNT 88 K/MM3 (134-434); RBC 3.85 M/mm3 (3.60-5.2); RDW 12.9 % (11.6-15.6); WHITE BLOOD COUNT 5.4 K/mm3 (4.0-10.0)
[2019-11-11 06:35] LABS: ALBUMIN 3.4 g/dl (3.4-5.0); BILIRUBIN,TOTAL 0.4 mg/dL (0.2-1); BLOOD UREA NITROGEN 8.2 mg/dL (7-18); CALCIUM 8.7 mg/dL (8.5-10.1); CREATININE 0.8 mg/dL (0.55-1.3); MAGNESIUM 2.3 mg/dL (1.8-2.4); POTASSIUM 4.5 mmol/L (3.5-5.1); TOT PROT 6.1 g/dl (6.4-8.2)
[2019-11-11] MEDS: SODIUM CHLORIDE 1,000 ML IV SCH ×3 (08:00→16:35)
[2019-11-11] MEDS ORDERED: cefTRIAXone SODIUM 1 GM VIAL ONE (08:58)
[2019-11-11] MEDS ORDERED: DEXTROSE 5%-WATER - 50 ML IVPB ONE (08:58)
[2019-11-11] MEDS: CEFTRIAXONE 1 GM in DEXTROSE 5%-WATER - 50 ML IVPB SCH (09:58)
--- NOTE | 2019-11-11 11:10 | PN ---
Physical Exam: SUBJECTIVE: Patient seen and examined at the bedside. reports urine frequency for months, then urine incontinence for a few weeks. OBJECTIVE: per ct scan, possible pancolitis c diff ordered and pending ua/uc to be collected abdominal pain improving on clears Patient is a 44 year old female with a significant past medical history of pancreatitis, s/p cholecystecomy, current daily smoker. She presents to ED with intractable n/v x 1 day. pt states that she began feeling sick about a week ago after her son at home was sick . she had cough, fevers, myalgia. she went to her PCP who started her on augmentin (she took one dose), and shortly after she became nauseas and has vomited several times. she also endorses diarrhea. Vital Signs Period Temp Pulse Resp BP Sys/Hall Pulse Ox Last 24 Hr 98.2 F-98.6 F 50-74 16-18 98-129/54-78 97-99 GENERAL: The patient is awake, alert, and fully oriented, in no acute distress. HEAD: Normal with no signs of trauma. EYES: PERRL, extraocular movements intact, sclera anicteric, conjunctiva clear. No ptosis. ENT: Ears normal, nares patent, oropharynx clear without exudates, moist mucous membranes. NECK: Trachea midline, full range of motion, supple. LUNGS: Breath sounds equal, clear to auscultation bilaterally, HEART: Regular rate and rhythm, S1, S2 without murmur, rub or gallop. ABDOMEN: abdominal tenderness on upper quadrants, no nausea/vomiting rebound, no hepatosplenomegaly, no masses. EXTREMITIES: no edema. NEUROLOGICAL: Normal speech, gait not observed. PSYCH: Normal mood, normal affect. SKIN: Warm, dry, normal turgor, no rashes or lesions noted Laboratory Results - last 24 hr 11/10/19 11/11/19 11/11/19 07:00 05:18 05:18 WBC 5.4 RBC 3.85 Hgb 12.0 Hct 35.6 MCV 92.5 MCH 31.1 MCHC 33.6 RDW 12.9 Plt Count 88 L MPV 10.2 Absolute Neuts (auto) 3.2 Neutrophils % 60.2 D Lymphocytes % 30.7 D Monocytes % 8.7 D Eosinophils % 0.2 D Basophils % 0.2 Nucleated RBC % 0 Sodium 141 Potassium 4.5 Chloride 108 H Carbon Dioxide 32 Anion Gap 2 L BUN 8.2 Creatinine 0.8 Est GFR (CKD-EPI)AfAm 105.39 Est GFR (CKD-EPI)NonAf 90.93 Random Glucose 91 Calcium 8.7 Magnesium 2.3 Total Bilirubin 0.4 AST 81 H ALT 110 H Alkaline Phosphatase 90 Total Protein 6.1 L Albumin 3.4 Urine Color Yellow Urine Appearance Clear Urine pH 6.0 Ur Specific [place] 1.080 H Urine Protein Trace Urine Glucose (UA) Negative Urine Ketones Trace H Urine Blood Negative Urine Nitrite Negative Urine Bilirubin Negative Urine Urobilinogen 0.2 Ur Leukocyte Esterase Negative Active Medications Generic Name Dose Route Start Last Admin Trade Name Freq PRN Reason Stop Dose Admin Enoxaparin Sodium 40 mg 11/10/19 10:00 11/10/19 10:05 Lovenox - SQ 40 mg DAILY NELLY Administration Sodium Chloride 1,000 mls @ 150 mls/hr 11/10/19 11:30 11/11/19 08:00 Normal Saline - IV 150 mls/hr ASDIR NELLY Administration Ceftriaxone Sodium 1 gm/ 50 mls @ 100 mls/hr 11/10/19 15:45 11/11/19 09:58 Dextrose IVPB 100 mls/hr DAILY NELLY Administration Protocol Lorazepam 1 mg 11/11/19 11:08 Ativan Injection - IVPUSH Q6H PRN NAUSEA AND/OR VOMITING Metoclopramide HCl 10 mg 11/10/19 09:04 11/10/19 09:15 Reglan Injection - IVPUSH 10 mg Q6H PRN Administration NAUSEA AND/OR VOMITING ASSESSMENT/PLAN: Problem List - Problems (1) Colitis Assessment/Plan: pancolits per ct scan c diff ordered and pending on flagyl, ceftriaxone abdomen mri pending Code(s): K52.9 - NONINFECTIVE GASTROENTERITIS AND COLITIS, UNSPECIFIED (2) Infectious diarrhea Assessment/Plan: c diff studies ordered on ceftriaxone, flagyl Code(s): A09 - INFECTIOUS GASTROENTERITIS AND COLITIS, UNSPECIFIED (3) Abnormal liver function test Assessment/Plan: elevated liver enzymes, only took one dose of Augmentin likely secondary to dehydration RUQ shows mild hepatomgaly, otherwise normal exam monitor liver enzymes daily avoid meds that can elevate ast/alt Code(s): R94.5 - ABNORMAL RESULTS OF LIVER FUNCTION STUDIES (4) Elevated liver enzymes Code(s): R74.8 - ABNORMAL LEVELS OF OTHER SERUM ENZYMES (5) Intractable nausea and vomiting Assessment/Plan: no further events, mild nausea, no vomiting avoid zofran for prolonged qtc Code(s): R11.2 - NAUSEA WITH VOMITING, UNSPECIFIED (6) Nausea & vomiting Assessment/Plan: on ativan prn Code(s): R11.2 - NAUSEA WITH VOMITING, UNSPECIFIED (7) Thrombocytopenia Assessment/Plan: likely secondary to sepsis hematology consult if continue to trend down Code(s): D69.6 - THROMBOCYTOPENIA, UNSPECIFIED (8) Afib Assessment/Plan: Seen by cardiology and patient does not require anticoagulation possible ASA as outpatient. cardiology following Code(s): I48.91 - UNSPECIFIED ATRIAL FIBRILLATION (9) Prophylactic measure Assessment/Plan: fen clears monitor electrolytes advance diet per gi lovenox full code Code(s): Z29.9 - ENCOUNTER FOR PROPHYLACTIC MEASURES, UNSPECIFIED Visit type - Emergency Visit Emergency Visit: Yes ED Registration Date: 11/10/19 Care time: The patient presented to the Emergency Department on the above date and was hospitalized for further evaluation of their emergent condition. - New Patient This patient is new to me today: Yes Date on this admission: 11/11/19 - Critical Care Critical Care patient: No - Discharge Referral Referred to [facility] Med [facility].C[facility] No
--- NOTE | 2019-11-11 11:17 | PN ---
Progress Note (short form) - Note Progress Note: s: no chest pain, palps, dizziness, dyspnea. complains of abd pain not improving with nausea Current Medications Enoxaparin Sodium (Lovenox -) 40 mg SQ DAILY NELLY Last Admin: 11/10/19 10:05 Dose: 40 mg Sodium Chloride (Normal Saline -) 1,000 mls @ 150 mls/hr IV ASDIR NELLY Last Admin: 11/11/19 08:00 Dose: 150 mls/hr Ceftriaxone Sodium 1 gm/ (Dextrose) 50 mls @ 100 mls/hr IVPB DAILY NELLY; Protocol Last Admin: 11/11/19 09:58 Dose: 100 mls/hr Lorazepam (Ativan Injection -) 1 mg IVPUSH Q6H PRN PRN Reason: NAUSEA AND/OR VOMITING Metoclopramide HCl (Reglan Injection -) 10 mg IVPUSH Q6H PRN PRN Reason: NAUSEA AND/OR VOMITING Last Admin: 11/10/19 09:15 Dose: 10 mg Vital Signs Period Temp Pulse Resp BP Sys/Hall Pulse Ox Last 24 Hr 98.2 F-98.6 F 50-74 16-18 98-129/54-78 97-99 Constitutional: Yes: No Distress, Calm Eyes: Yes: Conjunctiva Clear Respiratory: Yes: CTA Bilaterally Gastrointestinal: Yes: Soft (NT) Cardiovascular: Yes: Regular Rate and Rhythm JVD: No Carotid Bruit: No Heart Sounds: Yes: S1, S2 (rrr, no M/R/G) Edema: No Neurological: Yes: Alert, Oriented Psychiatric: Yes: not agitated no jaundice, diaphoresis Imaging - Results EKG: Image Reviewed tele: sinus chidi Assessment/Plan IMP: Probable/suspected viral gastroenteritis Thrombocytopenia probably due to viral illness PAF, [id number] = 0 REC: 1. Treatment of gastroenteritis as per PMD: hydration, supportive measures 2. Keep K+ and MG2+ repleted. 3. holding home metoprolol for bradycardia here, takes daily at home for palpitations (has not had palps here) 4. Does not require AC. Can consider care home low dose ASA but would hold at this time and defer to the outpatient setting 5. dc tele
[2019-11-11] MEDS: ENOXAPARIN NA (PORCINE) 40 MG/0.4 ML DISP.SYRIN SQ SCH (12:00)
[2019-11-11] MEDS: LORazepam 2 MG/ML SDV VIAL IVPUSH PRN ×2 (12:00→17:41)
[2019-11-11 13:03] LABS: PH,URINE 6.5 (5.0-8.0); URINE APPEARANCE CLEAR; URINE BILIRUBIN NEGATIVE (NEGATIVE); URINE COLOR YELLOW; URINE GLUCOSE (UA) NEGATIVE (NEGATIVE); URINE KETONE NEGATIVE (NEGATIVE); URINE LEUK ESTERASE NEGATIVE (NEGATIVE); URINE NITRITE NEGATIVE (NEGATIVE); URINE PROTEIN NEGATIVE (NEGATIVE)
--- NOTE | 2019-11-11 13:37 | EKG ---
Test Reason : Blood Pressure : / mmHG Vent. Rate : 048 BPM Atrial Rate : 048 BPM P-R Int : 126 ms QRS Dur : 078 ms QT Int : 490 ms P-R-T Axes : 060 040 046 degrees QTc Int : 437 ms SINUS BRADYCARDIA NONSPECIFIC T WAVE ABNORMALITY ABNORMAL ECG WHEN COMPARED WITH ECG OF 04-JAN-2002 08:25, INVERTED T WAVES HAVE REPLACED NONSPECIFIC T WAVE ABNORMALITY IN ANTERIOR LEADS Confirmed by MD FAUSTINO, KERRY ([id number]) on 11/11/2019 1:37:08 PM Referred By: Confirmed By:KERRY HARMON MD
--- NOTE | 2019-11-11 13:56 | PN.GI ---
GI Progress Note Subjective: For Dr. rodriguez who resumes care 11/13 No acute events No nausea, vomiting of diarrhea. Patient states last episode of diarrhea was yesterday in ER Denies h/o liver disese, blood disorders Took one dose of augmentin prior to admission - Objective Vital Signs: Vital Signs Temperature 98.6 F 11/11/19 10:01 Pulse Rate 51 L 11/11/19 10:01 Respiratory Rate 18 11/11/19 10:01 Blood Pressure 111/56 L 11/11/19 10:01 O2 Sat by Pulse Oximetry (%) 98 11/11/19 09:00 Constitutional: Calm Eyes: No: Sclera Icterus Cardiovascular: Yes: Bradycardia Respiratory: Yes: CTA Bilaterally Gastrointestinal Inspection: No: Distention, Scars ...Auscultate: Yes: Normoactive Bowel Sounds ...Palpate: Yes: Soft, Tenderness (TTP LUQ / left abdomen). No: Guarding, Tenderness, Rebound ...Percussion: No: Tympanitic Edema: No (No LE edema) Labs: CBC, BMP 11/11/19 05:18 11/11/19 05:18 INR, PTT INR 1.02 (0.83-1.09) 11/09/19 22:35 Hepatic Panel Total Bilirubin 0.4 mg/dL (0.2-1) 11/11/19 05:18 AST 81 U/L (15-37) H 11/11/19 05:18 ALT 110 U/L (13-61) H 11/11/19 05:18 Alkaline Phosphatase 90 U/L (45-117) 11/11/19 05:18 Albumin 3.4 g/dl (3.4-5.0) 11/11/19 05:18 Problem List - Problems (1) Intractable nausea and vomiting Assessment/Plan: Nausea and vomiting resolved LUQ pain. ? if pain secondary to vomiting episodes. Observing Code(s): R11.2 - NAUSEA WITH VOMITING, UNSPECIFIED (2) Colitis Assessment/Plan: Diarrhea resolved as has leukocytosis. ? if self limited gastroenteritis. If left sided pain persists, consider flex sig to evaluate further Stool studies ordered if diarrhea recurs Code(s): K52.9 - NONINFECTIVE GASTROENTERITIS AND COLITIS, UNSPECIFIED (3) Abnormal liver function test Assessment/Plan: Transaminitis. ? if related to recent anibiotic, ? if reactive, related to systemic process along with thrombocytopenia of unclear etiology. Consider ID/Heme evaluation Ordered screening hepatitis serologies Code(s): R94.5 - ABNORMAL RESULTS OF LIVER FUNCTION STUDIES
[2019-11-12] MEDS ORDERED: PT OWN MED DRAWER 7, Y5N ONE (01:04)
[2019-11-12] MEDS: SODIUM CHLORIDE 1,000 ML IV SCH ×3 (01:22→18:10)
[2019-11-12 06:26] LABS: BASO % 0.3 % (0-2.0); EOS % 0.4 % (0-4.5); HEMATOCRIT 34.4 % (32.4-45.2); HEMOGLOBIN 11.5 GM/dL (10.7-15.3); LYMPH % 54.2 % (8-40); MCHC 33.4 g/dl (32.0-36.0); MEAN CELL VOLUME 92.9 fl (80-96); MONO % 11.6 % (3.8-10.2); NEUT % 33.5 % (42.8-82.8); PLATELET COUNT 86 K/MM3 (134-434); RBC 3.71 M/mm3 (3.60-5.2); RDW 12.9 % (11.6-15.6); WHITE BLOOD COUNT 3.8 K/mm3 (4.0-10.0)
[2019-11-12 06:52] LABS: BILIRUBIN,TOTAL 0.5 mg/dL (0.2-1); BLOOD UREA NITROGEN 8.6 mg/dL (7-18); CALCIUM 7.9 mg/dL (8.5-10.1); CREATININE 0.7 mg/dL (0.55-1.3); POTASSIUM 3.7 mmol/L (3.5-5.1); TOT PROT 5.4 g/dl (6.4-8.2)
[2019-11-12] MEDS ORDERED: cefTRIAXone SODIUM 1 GM VIAL ONE (08:59)
[2019-11-12] MEDS ORDERED: DEXTROSE 5%-WATER - 50 ML IVPB ONE ×2 (08:59→15:37)
[2019-11-12] MEDS: CEFTRIAXONE 1 GM in DEXTROSE 5%-WATER - 50 ML IVPB SCH (09:18)
[2019-11-12] MEDS: ENOXAPARIN NA (PORCINE) 40 MG/0.4 ML DISP.SYRIN SQ SCH (10:12)
[2019-11-12] MEDS ORDERED: METOCLOPRAMIDE HCL INJECTION 10 MG/2 ML VIAL IVPUSH PRN (10:17)
[2019-11-12] MEDS ORDERED: LORazepam 2 MG/ML SDV VIAL IVPUSH PRN (10:50)
--- NOTE | 2019-11-12 11:19 | PN.GI ---
GI Progress Note Subjective: For Dr. Chapin who resumes care 11/13 States not feeling well today Abdominal pain persists Had diarrhea last night - Objective Vital Signs: Vital Signs Temperature 97.8 F 11/12/19 09:30 Pulse Rate 47 L 11/12/19 09:30 Respiratory Rate 18 11/12/19 09:30 Blood Pressure 136/72 11/12/19 09:30 O2 Sat by Pulse Oximetry (%) 96 11/11/19 21:00 Constitutional: Calm Eyes: No: Sclera Icterus Cardiovascular: Yes: Bradycardia Respiratory: Yes: CTA Bilaterally ...Auscultate: Yes: Normoactive Bowel Sounds ...Palpate: Yes: Soft, Tenderness (TTP epigasstrium, left upper abdomen). No: Guarding ...Percussion: No: Tympanitic Edema: No (No LE edema) Neurological: Yes: Alert Labs: CBC, BMP 11/12/19 05:10 11/12/19 05:10 INR, PTT INR 1.02 (0.83-1.09) 11/09/19 22:35 Laboratory Tests 11/12/19 05:10 Hep A IgM Ab Confirm Pending Hepatitis A Ab Total Pending Hep Bs Antigen Pending Hep Bs Antibody Pending Hep B Core Total Ab Pending Hep B Core IgM Ab Pending Hepatitis Be Antibody Pending Hepatitis Be Antigen Pending Hep C Ab Diagnostic Pending Problem List - Problems (1) Colitis Assessment/Plan: Abdominal pain persists. Stool studies collected, pending Reordered stool for C. Diff Code(s): K52.9 - NONINFECTIVE GASTROENTERITIS AND COLITIS, UNSPECIFIED (2) Abnormal liver function test Assessment/Plan: ? med related, however only took 1 dose of augmentin. ? reactive to systemic process Hepatitis serologies pending Code(s): R94.5 - ABNORMAL RESULTS OF LIVER FUNCTION STUDIES (3) Thrombocytopenia Assessment/Plan: With developing leukopenia. ? if secondary to infectious process. Hematology evaluation placed Consider ID evaluation Code(s): D69.6 - THROMBOCYTOPENIA, UNSPECIFIED (4) Bradycardia Assessment/Plan: Unclear if this is her baseline. Stopped reglan. Consider further evaluation Code(s): R00.1 - BRADYCARDIA, UNSPECIFIED (5) Intractable nausea and vomiting Assessment/Plan: No N/V currently Code(s): R11.2 - NAUSEA WITH VOMITING, UNSPECIFIED
--- NOTE | 2019-11-12 11:20 | PN ---
Progress Note (short form) - Note Progress Note: s: no chest pain, palps, dizziness, dyspnea. stable nausea, abd pain Current Medications Sodium Chloride (Normal Saline -) 1,000 mls @ 150 mls/hr IV ASDIR NELLY Last Admin: 11/12/19 01:22 Dose: 150 mls/hr Ceftriaxone Sodium 1 gm/ (Dextrose) 50 mls @ 100 mls/hr IVPB DAILY NELLY; Protocol Last Admin: 11/12/19 09:18 Dose: 100 mls/hr Metronidazole (Flagyl 250mg Premixed Ivpb -) 250 mg in 50 mls @ 50 mls/hr IVPB Q8H-IV NELLY Last Admin: 11/12/19 10:10 Dose: 50 mls/hr Lorazepam (Ativan Injection -) 1 mg IVPUSH Q6H PRN PRN Reason: ANXIETY Last Admin: 11/12/19 11:07 Dose: 1 mg Vital Signs Period Temp Pulse Resp BP Sys/Hall Pulse Ox Last 24 Hr 97.8 F-98.7 F 44-57 18-18 122-150/72-78 96 Constitutional: Yes: No Distress, Calm Eyes: Yes: Conjunctiva Clear Respiratory: Yes: CTA Bilaterally Gastrointestinal: Yes: Soft (NT) Cardiovascular: Yes: Regular Rate and Rhythm JVD: No Carotid Bruit: No Heart Sounds: Yes: S1, S2 (rrr, no M/R/G) Edema: No Neurological: Yes: Alert, Oriented Psychiatric: Yes: not agitated no jaundice, diaphoresis Assessment/Plan IMP: Probable/suspected viral gastroenteritis Thrombocytopenia probably due to viral illness PAF, [id number] = 0 REC: 1. Treatment of gastroenteritis as per PMD: hydration, supportive measures, further testing per GI 2. Keep K+ and MG2+ repleted. 3. holding home metoprolol for bradycardia here, takes daily at home for palpitations (has not had palps here) 4. Does not require AC. Can consider senior care low dose ASA but would hold at this time and defer to the outpatient setting
--- NOTE | 2019-11-12 13:48 | PN ---
Physical Exam: SUBJECTIVE: Patient seen and examined OBJECTIVE: per ct scan, possible pancolitis, awaiting abdominal mri official read c diff negative ua/uc negative on clears episode of diarrhea overnight Patient is a 44 year old female with a significant past medical history of pancreatitis, s/p cholecystecomy, current daily smoker. She presents to ED with intractable n/v x 1 day. pt states that she began feeling sick about a week ago after her son at home was sick . she had cough, fevers, myalgia. she went to her PCP who started her on augmentin (she took one dose), and shortly after she became nauseas and has vomited several times. she also endorses diarrhea. Vital Signs Period Temp Pulse Resp BP Sys/Hall Pulse Ox Last 24 Hr 97.8 F-98.7 F 44-57 18-18 122-150/72-78 96-97 GENERAL: The patient is awake, alert, and fully oriented, in no acute distress. HEAD: Normal with no signs of trauma. EYES: PERRL, extraocular movements intact, sclera anicteric, conjunctiva clear. No ptosis. ENT: Ears normal, nares patent, oropharynx clear without exudates, moist mucous membranes. NECK: Trachea midline, full range of motion, supple. LUNGS: Breath sounds equal, clear to auscultation bilaterally, HEART: Regular rate and rhythm, S1, S2 without murmur, rub or gallop. ABDOMEN: abdominal tenderness on upper quadrants, no nausea/vomiting, had diarrhea today rebound, no hepatosplenomegaly, no masses. EXTREMITIES: no edema. NEUROLOGICAL: Normal speech, gait not observed. PSYCH: Normal mood, normal affect. SKIN: Warm, dry, normal turgor, no rashes or lesions noted Laboratory Results - last 24 hr 11/11/19 11/12/19 11/12/19 05:18 05:10 05:10 WBC 3.8 L RBC 3.71 Hgb 11.5 Hct 34.4 MCV 92.9 MCH 31.0 MCHC 33.4 RDW 12.9 Plt Count 86 L MPV 10.0 Absolute Neuts (auto) 1.3 L Neutrophils % 33.5 L D Lymphocytes % 54.2 H D Monocytes % 11.6 H Eosinophils % 0.4 D Basophils % 0.3 Nucleated RBC % 0 Sodium 144 Potassium 3.7 Chloride 112 H Carbon Dioxide 28 Anion Gap 4 L BUN 8.6 Creatinine 0.7 Est GFR (CKD-EPI)AfAm 123.86 Est GFR (CKD-EPI)NonAf 106.87 Random Glucose 81 Calcium 7.9 L Magnesium 2.0 Total Bilirubin 0.5 AST 84 H ALT 125 H Alkaline Phosphatase 91 Total Protein 5.4 L Albumin 3.0 L Carcinoembryonic Ag 3.0 CA 19-9 Antigen 9 CA 125 Antigen 11.0 Active Medications Generic Name Dose Route Start Last Admin Trade Name Freq PRN Reason Stop Dose Admin Sodium Chloride 1,000 mls @ 150 mls/hr 11/10/19 11:30 11/12/19 01:22 Normal Saline - IV 150 mls/hr ASDIR NELLY Administration Ceftriaxone Sodium 1 gm/ 50 mls @ 100 mls/hr 11/10/19 15:45 11/12/19 09:18 Dextrose IVPB 100 mls/hr DAILY NELLY Administration Protocol Metronidazole 250 mg in 50 mls @ 50 mls/hr 11/11/19 12:00 11/12/19 10:10 Flagyl 250mg Premixed Ivpb - IVPB 50 mls/hr Q8H-IV NELLY Administration Lorazepam 1 mg 11/12/19 10:50 11/12/19 11:07 Ativan Injection - IVPUSH 1 mg Q6H PRN Administration ANXIETY ASSESSMENT/PLAN: Problem List - Problems (1) Colitis Assessment/Plan: pancolits per ct scan c diff negative seen by ID and started on Zosyn abdomen mri pending official read Code(s): K52.9 - NONINFECTIVE GASTROENTERITIS AND COLITIS, UNSPECIFIED (2) Infectious diarrhea Assessment/Plan: negative for c diff. stool culture pending. Code(s): A09 - INFECTIOUS GASTROENTERITIS AND COLITIS, UNSPECIFIED (3) Abnormal liver function test Assessment/Plan: elevated liver enzymes, only took one dose of Augmentin elevated liver function likely secondary to dehydration RUQ shows mild hepatomgaly, otherwise normal exam monitor liver enzymes daily avoid meds that can elevate ast/alt Code(s): R94.5 - ABNORMAL RESULTS OF LIVER FUNCTION STUDIES (4) Elevated liver enzymes Assessment/Plan: followed by GI, continue to trend Code(s): R74.8 - ABNORMAL LEVELS OF OTHER SERUM ENZYMES (5) Intractable nausea and vomiting Assessment/Plan: no further events, mild nausea, no vomiting avoid zofran for prolonged qtc Code(s): R11.2 - NAUSEA WITH VOMITING, UNSPECIFIED (6) Nausea & vomiting Assessment/Plan: on ativan prn, also helps with abdominal pain. Code(s): R11.2 - NAUSEA WITH VOMITING, UNSPECIFIED (7) Thrombocytopenia Assessment/Plan: likely secondary to sepsis hematology consulted as she is also developing pancytopenia Code(s): D69.6 - THROMBOCYTOPENIA, UNSPECIFIED (8) Afib Assessment/Plan: Seen by cardiology and patient does not require anticoagulation possible ASA as outpatient. cardiology following Code(s): I48.91 - UNSPECIFIED ATRIAL FIBRILLATION (9) Prophylactic measure Assessment/Plan: fen clears monitor electrolytes advance diet per gi full code Code(s): Z29.9 - ENCOUNTER FOR PROPHYLACTIC MEASURES, UNSPECIFIED Visit type - Emergency Visit Emergency Visit: Yes ED Registration Date: 11/10/19 Care time: The patient presented to the Emergency Department on the above date and was hospitalized for further evaluation of their emergent condition. - New Patient This patient is new to me today: No - Critical Care Critical Care patient: No - Discharge Referral Referred to [facility] Med [facility] No
--- NOTE | 2019-11-12 14:51 | CON.ID ---
Consult Consult Specialty:: infecious diseases Referred by:: Elisha Reason for Consultation:: abd pain,weakness cough - History of Present Illness Chief Complaint: weakness cough,fever History of Present Illness: 44 yo F PMH of Afib( not on AC ) , hx of pancreatitis , s/p cholecystecomy, presents to ED with intractable n/v x 1 day. pt states that she began feeling sick about a week ago after her son at home was sick . she had cough, fevers, myalgia. she went to her PCP today who started her on augmentin. pt states that shortly after she became nauseas and has vomited several times. she also endorses diarrhea starting today. she states her son at home does not have vomiting or diarrhea. she has no recent trave currently patient feels weak - History Source History Provided By: Patient Limitations to Obtaining History: No Limitations - Past Medical History Cardio/Vascular: Yes: AFIB Pulmonary: No: Asthma, Bronchitis, Cancer, COPD, O2 Dependent, Pneumonia, Previously Intubated, Pulmonary Embolus, Pulmonary Fibrosis, Sleep Apnea, Other Gastrointestinal: No: Ascites, Cancer, Constipation, Crohn's Disease, Diverticulitis, Diverticulosis, Esophageal Varices, Gastritis, GERD, GI Bleed, Hemorrhoids, Hiatal Hernia, Inflamatory Bowel Disease, Irritable Bowel Disease, Pancreatitis, Peptic Ulcer Disease, Ulcerative Colitis, Other Hepatobiliary: No: Cirrhosis, Cholelithiasis, Cholecystitis, Choledocholithiasis , Hepatitis A, Hepatitis B, Hepatitis C, Other Renal/: No: Renal Failure, Renal Inusuff, BPH, Cancer, Hematuria, Hemodialysis , Neurogenic Bladder, Renal Calculi, UTI, Other ...LMP: 11/18/18 Infectious Disease: No: AIDS, C-Diff, Herpes Zoster, HIV, MRSA, STD's, Tuberculosis, VREF, Other Psych: No: Addictions, Anxiety, Bipolar, Depression, Panic, Psychosis, Schizophrenia, Other Musculoskeletal: No: Bursitis, Chronic low back pain, Hemiparesis, Hemiplegia, Osteoarthritis, Paraplegia, Other Rheumatology: No: Fibromyalgia, Gout, Lupus, Rheumatoid Arthritis, Sarcoidosis, Vasculitis, Other ENT: No: Allergic Rhinitis, Sinusitis, Other Endocrine: No: Suraj's Disease, Leblanc's Disease, Diabetes Insipidus, Diabetes Mellitus, Hyperparathyroidism, Hyperthyroidism, Hypothyroidism, Osteopenia, SIADH, Other Dermatology: No: Basal Cell, Cellulitis, Eczema, Melanoma, Psoriasis, Squamous Cell, Other - Alcohol/Substance Use Hx Alcohol Use: No History of Substance Use: reports: Marijuana - Smoking History Smoking history: Current every day smoker Have you smoked in the past 12 months: Yes Aproximately how many cigarettes per day: 10 - Social History ADL: Independent History of Recent Travel: No Home Medications - Allergies Allergies/Adverse Reactions: Allergies Allergy/AdvReac Type Severity Reaction Status Date / Time clarithromycin [From Biaxin] Allergy Verified 08/13/15 12:42 meperidine HCl [From Demerol] Allergy Verified 03/05/12 17:29 CODINE AdvReac Uncoded 11/10/19 01:42 - Home Medications Home Medications: Ambulatory Orders Fluoxetine HCl [Prozac -] 40 mg PO DAILY 03/05/12 Azithromycin [Zithromax Z-RASHMI (5 DAYS) -] 250 mg PO DAILY #6 tablet 08/13/15 Metoprolol Succinate [Toprol Xl] 25 mg PO DAILY 12/27/18 Review of Systems - Review of Systems Constitutional: reports: Fever, Other Eyes: reports: No Symptoms HENT: reports: No Symptoms Neck: reports: No Symptoms Cardiovascular: reports: No Symptoms Respiratory: reports: No Symptoms Gastrointestinal: reports: Abdominal Pain Genitourinary: reports: No Symptoms Musculoskeletal: reports: No Symptoms Integumentary: reports: No Symptoms Neurological: reports: No Symptoms Endocrine: reports: No Symptoms Hematology/Lymphatic: reports: No Symptoms Psychiatric: reports: No Symptoms Physical Exam Vital Signs: Vital Signs Temperature 97.8 F 11/12/19 09:30 Pulse Rate 47 L 11/12/19 09:30 Respiratory Rate 18 11/12/19 09:30 Blood Pressure 136/72 11/12/19 09:30 O2 Sat by Pulse Oximetry (%) 97 11/12/19 09:00 Constitutional: Yes: Calm, Mild Distress Cardiovascular: Yes: Pulse Irregular Respiratory: Yes: Regular, CTA Bilaterally Gastrointestinal: Yes: Soft, Hypoactive Bowel Sounds, Tenderness Musculoskeletal: Yes: WNL Extremities: Yes: WNL Neurological: Yes: Alert, Oriented Psychiatric: Yes: Alert, Oriented Labs: CBC, BMP 11/12/19 05:10 11/12/19 05:10 Imaging - Results Chest X-ray: Report Reviewed, Image Reviewed Cat Scan: Report Reviewed, Image Reviewed Assessment/Plan 44 yo F PMH of Afib( not on AC ) , hx of pancreatitis , s/p cholecystecomy, presents to ED with intractable n/v x 1 day. vomiting transaminitis afib abd pain dixon colitis plan will switch to zosyn munira stop flagy and ceftriaxone
--- NOTE | 2019-11-12 15:24 | CONSULT ---
Consult Consult Specialty:: Hematology Referred by:: Medicine Reason for Consultation:: Thrombocytopenia/leukopenia - History of Present Illness Chief Complaint: Vomiting History of Present Illness: Patient, without significant medical history, presented with short history of abdominal pain and vomiting. Admitted for above, and treated for infectious gastroenteritis, without resolution of symptoms thus far. Noted to developed thrombocytopenia and mild neutropenia over past 3 days, since admitted. Admission was preceded by a few days of amoxicillin use, for sinusitis. Reports no prior hematological issues. No family history of hematological issues. - History Source History Provided By: Patient, Medical Record Limitations to Obtaining History: No Limitations - Past Medical History Cardio/Vascular: Yes: AFIB Pulmonary: No: Asthma, Bronchitis, Cancer, COPD, O2 Dependent, Pneumonia, Previously Intubated, Pulmonary Embolus, Pulmonary Fibrosis, Sleep Apnea, Other Gastrointestinal: No: Ascites, Cancer, Constipation, Crohn's Disease, Diverticulitis, Diverticulosis, Esophageal Varices, Gastritis, GERD, GI Bleed, Hemorrhoids, Hiatal Hernia, Inflamatory Bowel Disease, Irritable Bowel Disease, Pancreatitis, Peptic Ulcer Disease, Ulcerative Colitis, Other Hepatobiliary: No: Cirrhosis, Cholelithiasis, Cholecystitis, Choledocholithiasis , Hepatitis A, Hepatitis B, Hepatitis C, Other Renal/: No: Renal Failure, Renal Inusuff, BPH, Cancer, Hematuria, Hemodialysis , Neurogenic Bladder, Renal Calculi, UTI, Other ...LMP: 11/18/18 Infectious Disease: No: AIDS, C-Diff, Herpes Zoster, HIV, MRSA, STD's, Tuberculosis, VREF, Other Psych: No: Addictions, Anxiety, Bipolar, Depression, Panic, Psychosis, Schizophrenia, Other Musculoskeletal: No: Bursitis, Chronic low back pain, Hemiparesis, Hemiplegia, Osteoarthritis, Paraplegia, Other Rheumatology: No: Fibromyalgia, Gout, Lupus, Rheumatoid Arthritis, Sarcoidosis, Vasculitis, Other ENT: No: Allergic Rhinitis, Sinusitis, Other Endocrine: No: [place]'s Disease, Josie's Disease, Diabetes Insipidus, Diabetes Mellitus, Hyperparathyroidism, Hyperthyroidism, Hypothyroidism, Osteopenia, SIADH, Other Dermatology: No: Basal Cell, Cellulitis, Eczema, Melanoma, Psoriasis, Squamous Cell, Other - Alcohol/Substance Use Hx Alcohol Use: No History of Substance Use: reports: Marijuana - Smoking History Smoking history: Current every day smoker Have you smoked in the past 12 months: Yes Aproximately how many cigarettes per day: 10 - Social History ADL: Independent History of Recent Travel: No Home Medications - Allergies Allergies/Adverse Reactions: Allergies Allergy/AdvReac Type Severity Reaction Status Date / Time clarithromycin [From Biaxin] Allergy Verified 08/13/15 12:42 meperidine HCl [From Demerol] Allergy Verified 03/05/12 17:29 CODINE AdvReac Uncoded 11/10/19 01:42 - Home Medications Home Medications: Ambulatory Orders Fluoxetine HCl [Prozac -] 40 mg PO DAILY 03/05/12 Azithromycin [Zithromax Z-RASHMI (5 DAYS) -] 250 mg PO DAILY #6 tablet 08/13/15 Metoprolol Succinate [Toprol Xl] 25 mg PO DAILY 12/27/18 Review of Systems - Review of Systems Constitutional: denies: Chills, Unintentional Wgt. Loss Eyes: denies: Recent Change in Vision Neck: denies: Lumps, Swollen Glands Gastrointestinal: reports: Abdominal Pain, Nausea, Vomiting Genitourinary: denies: No Symptoms Musculoskeletal: denies: Back Pain, Joint Swelling Neurological: reports: No Symptoms Physical Exam Vital Signs: Vital Signs Temperature 97.8 F 11/12/19 09:30 Pulse Rate 47 L 11/12/19 09:30 Respiratory Rate 18 11/12/19 09:30 Blood Pressure 136/72 11/12/19 09:30 O2 Sat by Pulse Oximetry (%) 97 11/12/19 09:00 Constitutional: Yes: No Distress, Calm, Anxious Eyes: Yes: Conjunctiva Clear HENT: Yes: Normocephalic Neck: Yes: Supple, Trachea Midline. No: Lymphadenopathy, Thyromegaly Cardiovascular: Yes: Regular Rate and Rhythm, S1, S2. No: Gallop, Murmur Respiratory: Yes: Regular, CTA Bilaterally Gastrointestinal: Yes: Normal Bowel Sounds, Tenderness Labs: CBC, BMP 11/12/19 05:10 11/12/19 05:10 Assessment/Plan Non-specific gastrointestinal syndrome, and CT reporting 'pancolitis' empirically treated with antibiotics. Has developed mild neutropenia and thrombocytopenia since admission. This is a non-specific hematological finding, and noting that it was not present at the time of admission, or prior to that, is likely reactive, attributable either to her acute septic/inflammatory syndrome, or less likely, as an idiosyncratic drug reaction. Either way, would only observe for now, with expectation that counts will return to baseline normal ranges with resolution of her current illness. If cytopenias persist, or progress, then will investigate further.
[2019-11-12] MEDS ORDERED: PIPERACILLIN/TAZOBACTAM 3.375 GM VIAL IVPB ONE (15:37)
[2019-11-12] MEDS: PIPERACILLIN/TAZOB 3.375 GM 3.375 GM in DEXTROSE 5%-WATER - 50 ML IVPB SCH (15:45)
[2019-11-12] MEDS: LORazepam 2 MG/ML SDV VIAL IVPUSH PRN ×2 (16:06→22:46)
[2019-11-13] MEDS ORDERED: DEXTROSE 5%-WATER - 50 ML IVPB ONE ×3 (01:00→15:40)
[2019-11-13] MEDS ORDERED: PIPERACILLIN/TAZOBACTAM 3.375 GM VIAL IVPB ONE ×3 (01:00→15:40)
[2019-11-13] MEDS: PIPERACILLIN/TAZOB 3.375 GM 3.375 GM in DEXTROSE 5%-WATER - 50 ML IVPB SCH ×3 (01:10→17:18)
[2019-11-13] MEDS ORDERED: ACETAMINOPHEN 325 MG TABLET (FP) PO PRN (06:48)
[2019-11-13 07:49] LABS: BASO % 0.2 % (0-2.0); EOS % 0.6 % (0-4.5); HEMATOCRIT 38.4 % (32.4-45.2); HEMOGLOBIN 12.8 GM/dL (10.7-15.3); LYMPH % 24.4 % (8-40); MCHC 33.5 g/dl (32.0-36.0); MEAN CELL VOLUME 92.5 fl (80-96); MEAN PLT VOLUME 9.8 fl (7.5-11.1); NEUT % 68.8 % (42.8-82.8); PLATELET COUNT 125 K/MM3 (134-434); RBC 4.15 M/mm3 (3.60-5.2)
[2019-11-13 08:02] LABS: ALBUMIN 3.2 g/dl (3.4-5.0); BILIRUBIN,TOTAL 0.7 mg/dL (0.2-1); BLOOD UREA NITROGEN 6.1 mg/dL (7-18); CALCIUM 8.1 mg/dL (8.5-10.1); CREATININE 0.7 mg/dL (0.55-1.3); POTASSIUM 4.2 mmol/L (3.5-5.1)
--- NOTE | 2019-11-13 09:06 | PN ---
Progress Note, Physician History of Present Illness: GI FOLLOW UP NOTE Patient examined and case discussed with Dr Chapin Patient continues to have abdominal pain. She states having one episode of non- bloody diarrhea yesterday. After episode of diarrhea she developed RLQ pain. Complains of nausea, but denies vomiting. Denies rectal bleeding or melena. - Current Medication List Current Medications: Active Medications Acetaminophen (Tylenol -) 650 mg PO Q6H PRN PRN Reason: PAIN LEVEL 1-5 Last Admin: 11/13/19 06:55 Dose: 650 mg Sodium Chloride (Normal Saline -) 1,000 mls @ 150 mls/hr IV ASDIR NELLY Last Admin: 11/12/19 18:10 Dose: 150 mls/hr Piperacillin Sod/Tazobactam (Sod 3.375 gm/ Dextrose) 50 mls @ 100 mls/hr IVPB Q8H-IV NELLY; Protocol Last Admin: 11/13/19 01:10 Dose: 100 mls/hr Lorazepam (Ativan Injection -) 1 mg IVPUSH Q4H PRN PRN Reason: NAUSEA AND/OR VOMITING Last Admin: 11/12/19 22:46 Dose: 1 mg - Objective Vital Signs: Vital Signs Temperature 98.4 F 11/13/19 06:33 Pulse Rate 52 L 11/13/19 06:33 Respiratory Rate 16 11/13/19 06:33 Blood Pressure 130/70 11/13/19 06:33 O2 Sat by Pulse Oximetry (%) 97 11/12/19 21:00 Constitutional: Yes: No Distress, Calm Eyes: Yes: Conjunctiva Clear HENT: Yes: Atraumatic Cardiovascular: Yes: Regular Rate and Rhythm Respiratory: Yes: Regular, CTA Bilaterally Gastrointestinal: Yes: Normal Bowel Sounds, Soft, Tenderness (RUQ, mid abdomen) Neurological: Yes: Alert, Oriented Psychiatric: Yes: Alert, Oriented Labs: CBC, BMP 11/13/19 06:30 11/13/19 06:30 INR, PTT INR 1.02 (0.83-1.09) 11/09/19 22:35 <Paty Eli - Last Filed: 11/13/19 09:01> - Current Medication List Current Medications: Active Medications Acetaminophen (Tylenol -) 650 mg PO Q6H PRN PRN Reason: PAIN LEVEL 1-5 Last Admin: 11/13/19 06:55 Dose: 650 mg Sodium Chloride (Normal Saline -) 1,000 mls @ 150 mls/hr IV ASDIR NELLY Last Admin: 11/13/19 09:20 Dose: 150 mls/hr Piperacillin Sod/Tazobactam (Sod 3.375 gm/ Dextrose) 50 mls @ 100 mls/hr IVPB Q8H-IV NELLY; Protocol Last Admin: 11/13/19 09:21 Dose: 100 mls/hr Metronidazole (Flagyl 500mg Premixed Ivpb -) 500 mg in 100 mls @ 100 mls/hr IVPB Q8H-IV NELLY Last Admin: 11/13/19 10:11 Dose: 100 mls/hr Lorazepam (Ativan Injection -) 1 mg IVPUSH Q4H PRN PRN Reason: NAUSEA AND/OR VOMITING Last Admin: 11/13/19 09:08 Dose: 1 mg - Objective Vital Signs: Vital Signs Temperature 98.4 F 11/13/19 06:33 Pulse Rate 52 L 11/13/19 06:33 Respiratory Rate 16 11/13/19 06:33 Blood Pressure 130/70 11/13/19 06:33 O2 Sat by Pulse Oximetry (%) 97 11/12/19 21:00 Labs: CBC, BMP 11/13/19 06:30 11/13/19 06:30 INR, PTT INR 1.02 (0.83-1.09) 11/09/19 22:35 <Arnold Chapin - Last Filed: 11/13/19 12:34> Problem List - Problems (1) Infectious diarrhea Assessment/Plan: >stool culture pending >Zosyn, will add IV Flagyl NS @ 150c/hr Code(s): A09 - INFECTIOUS GASTROENTERITIS AND COLITIS, UNSPECIFIED (2) Pancreatic cyst Assessment/Plan: >6mm pancreatic cyst noted on CTAP >Abd MRI results pending >CEA, Ca 125, CA 19-9 all wnl Code(s): K86.2 - CYST OF PANCREAS <Paty Eli - Last Filed: 11/13/19 09:01> - Problems (1) Pancreatic cyst Code(s): K86.2 - CYST OF PANCREAS (2) RUQ pain Assessment/Plan: r/o gallb ldder dyskenisia, chronic cholecytitis R> HIDA scan with EF Code(s): R10.11 - RIGHT UPPER QUADRANT PAIN (3) Infectious diarrhea Code(s): A09 - INFECTIOUS GASTROENTERITIS AND COLITIS, UNSPECIFIED (4) Acute bronchitis Code(s): J20.9 - ACUTE BRONCHITIS, UNSPECIFIED (5) Elevated liver enzymes Code(s): R74.8 - ABNORMAL LEVELS OF OTHER SERUM ENZYMES (6) Thrombocytopenia Code(s): D69.6 - THROMBOCYTOPENIA, UNSPECIFIED <Arnold Chapin - Last Filed: 11/13/19 12:34>
[2019-11-13] MEDS: LORazepam 2 MG/ML SDV VIAL IVPUSH PRN ×2 (09:08→16:08)
[2019-11-13] MEDS: SODIUM CHLORIDE 1,000 ML IV SCH ×2 (09:20→13:22)
--- NOTE | 2019-11-13 11:50 | PN ---
Progress Note, Physician History of Present Illness: stable no new issues wbc normalized - Current Medication List Current Medications: Active Medications Acetaminophen (Tylenol -) 650 mg PO Q6H PRN PRN Reason: PAIN LEVEL 1-5 Last Admin: 11/13/19 06:55 Dose: 650 mg Sodium Chloride (Normal Saline -) 1,000 mls @ 150 mls/hr IV ASDIR NELLY Last Admin: 11/13/19 09:20 Dose: 150 mls/hr Piperacillin Sod/Tazobactam (Sod 3.375 gm/ Dextrose) 50 mls @ 100 mls/hr IVPB Q8H-IV NELLY; Protocol Last Admin: 11/13/19 09:21 Dose: 100 mls/hr Metronidazole (Flagyl 500mg Premixed Ivpb -) 500 mg in 100 mls @ 100 mls/hr IVPB Q8H-IV NELLY Last Admin: 11/13/19 10:11 Dose: 100 mls/hr Lorazepam (Ativan Injection -) 1 mg IVPUSH Q4H PRN PRN Reason: NAUSEA AND/OR VOMITING Last Admin: 11/13/19 09:08 Dose: 1 mg - Objective Vital Signs: Vital Signs Temperature 98.4 F 11/13/19 06:33 Pulse Rate 52 L 11/13/19 06:33 Respiratory Rate 16 11/13/19 06:33 Blood Pressure 130/70 11/13/19 06:33 O2 Sat by Pulse Oximetry (%) 97 11/12/19 21:00 Constitutional: Yes: No Distress, Calm Cardiovascular: Yes: S1, S2 Respiratory: Yes: Regular, CTA Bilaterally Gastrointestinal: Yes: Normal Bowel Sounds, Soft Musculoskeletal: Yes: WNL Extremities: Yes: WNL Neurological: Yes: Alert, Oriented Psychiatric: Yes: Alert, Oriented Labs: CBC, BMP 11/13/19 06:30 11/13/19 06:30 INR, PTT INR 1.02 (0.83-1.09) 11/09/19 22:35 Assessment/Plan 44 yo F PMH of Afib( not on AC ) , hx of pancreatitis , s/p cholecystecomy, presents to ED with intractable n/v x 1 day. vomiting transaminitis afib abd pain dixon colitis plan continue abx monitor rest as per the team
--- NOTE | 2019-11-13 12:25 | PN ---
Physical Exam: SUBJECTIVE: Patient seen and examined at the bedside. c/o of headache, but states abdominal pain improving. OBJECTIVE: Patient is a 44 year old female with a significant past medical history of pancreatitis, s/p cholecystecomy, current daily smoker. She presents to ED with intractable n/v x 1 day. pt states that she began feeling sick about a week ago after her son at home was sick . she had cough, fevers, myalgia. she went to her PCP who started her on augmentin (she took one dose), and shortly after she became nauseas and has vomited several times. she also endorses diarrhea. Patient continues to have abdominal pain, most on her upper quadrants. She also had one episode of non-bloody diarrhea yesterday. After episode of diarrhea she developed RLQ pain. Complains of nausea, but denies vomiting. having headaches. Vital Signs Period Temp Pulse Resp BP Sys/Hall Pulse Ox Last 24 Hr 97.6 F-98.5 F 42-52 16-18 130-157/69-78 96-97 GENERAL: The patient is awake, alert, and fully oriented, in no acute distress. HEAD: Normal with no signs of trauma. EYES: PERRL, extraocular movements intact, sclera anicteric, conjunctiva clear. No ptosis. ENT: Ears normal, nares patent, oropharynx clear without exudates, moist mucous membranes. NECK: Trachea midline, full range of motion, supple. LUNGS: Breath sounds equal, clear to auscultation bilaterally, HEART: Regular rate and rhythm, S1, S2 without murmur, rub or gallop. ABDOMEN: abdominal tenderness on upper quadrants, no nausea/vomiting, had diarrhea today rebound, no hepatosplenomegaly, no masses. EXTREMITIES: no edema. NEUROLOGICAL: Normal speech, gait not observed. PSYCH: Normal mood, normal affect. SKIN: Warm, dry, normal turgor, no rashes or lesions noted Laboratory Results - last 24 hr 11/12/19 11/13/19 11/13/19 05:10 06:30 06:30 WBC 7.0 RBC 4.15 Hgb 12.8 Hct 38.4 MCV 92.5 MCH 31.0 MCHC 33.5 RDW 13.0 Plt Count 125 L D MPV 9.8 Absolute Neuts (auto) 4.8 Neutrophils % 68.8 D Lymphocytes % 24.4 D Monocytes % 6.0 Eosinophils % 0.6 Basophils % 0.2 Nucleated RBC % 0 Sodium 145 Potassium 4.2 Chloride 112 H Carbon Dioxide 27 Anion Gap 5 L BUN 6.1 L Creatinine 0.7 Est GFR (CKD-EPI)AfAm 123.86 Est GFR (CKD-EPI)NonAf 106.87 Random Glucose 75 Calcium 8.1 L Magnesium 2.0 Total Bilirubin 0.7 AST 81 H ALT 146 H Alkaline Phosphatase 111 Total Protein 6.0 L Albumin 3.2 L Hep C Ab Diagnostic <0.1 Active Medications Generic Name Dose Route Start Last Admin Trade Name Freq PRN Reason Stop Dose Admin Acetaminophen 650 mg 11/13/19 06:48 11/13/19 06:55 Tylenol - PO 650 mg Q6H PRN Administration PAIN LEVEL 1-5 Sodium Chloride 1,000 mls @ 150 mls/hr 11/10/19 11:30 11/13/19 09:20 Normal Saline - IV 150 mls/hr ASDIR NELLY Administration Piperacillin Sod/Tazobactam 50 mls @ 100 mls/hr 11/12/19 15:45 11/13/19 09:21 Sod 3.375 gm/ Dextrose IVPB 100 mls/hr Q8H-IV NELLY Administration Protocol Metronidazole 500 mg in 100 mls @ 100 mls/hr 11/13/19 10:00 11/13/19 10:11 Flagyl 500mg Premixed Ivpb - IVPB 100 mls/hr Q8H-IV NELLY Administration Lorazepam 1 mg 11/12/19 14:50 11/13/19 09:08 Ativan Injection - IVPUSH 1 mg Q4H PRN Administration NAUSEA AND/OR VOMITING ASSESSMENT/PLAN: Problem List - Problems (1) Colitis Assessment/Plan: pancolits per ct scan c diff negative seen by ID and started on Zosyn abdomen mri pending official read Code(s): K52.9 - NONINFECTIVE GASTROENTERITIS AND COLITIS, UNSPECIFIED (2) Infectious diarrhea Assessment/Plan: negative for c diff. stool culture pending. Code(s): A09 - INFECTIOUS GASTROENTERITIS AND COLITIS, UNSPECIFIED (3) Abnormal liver function test Assessment/Plan: elevated liver enzymes, only took one dose of Augmentin elevated liver function likely secondary to dehydration RUQ shows mild hepatomgaly, otherwise normal exam monitor liver enzymes daily avoid meds that can elevate ast/alt gi following Code(s): R94.5 - ABNORMAL RESULTS OF LIVER FUNCTION STUDIES (4) Elevated liver enzymes Assessment/Plan: followed by GI, continue to trend Code(s): R74.8 - ABNORMAL LEVELS OF OTHER SERUM ENZYMES (5) Intractable nausea and vomiting Assessment/Plan: no further events, mild nausea, no vomiting avoid zofran for prolonged qtc Code(s): R11.2 - NAUSEA WITH VOMITING, UNSPECIFIED (6) Nausea & vomiting Assessment/Plan: on ativan prn, also helps with abdominal pain. Code(s): R11.2 - NAUSEA WITH VOMITING, UNSPECIFIED (7) Thrombocytopenia Assessment/Plan: likely secondary to sepsis, platelets improving. hematology note appreciated Code(s): D69.6 - THROMBOCYTOPENIA, UNSPECIFIED (8) Afib Assessment/Plan: Seen by cardiology and patient does not require anticoagulation possible ASA as outpatient. cardiology following Code(s): I48.91 - UNSPECIFIED ATRIAL FIBRILLATION (9) Prophylactic measure Assessment/Plan: fen clears monitor electrolytes advance diet per gi full code Code(s): Z29.9 - ENCOUNTER FOR PROPHYLACTIC MEASURES, UNSPECIFIED Visit type - Emergency Visit Emergency Visit: Yes ED Registration Date: 11/10/19 Care time: The patient presented to the Emergency Department on the above date and was hospitalized for further evaluation of their emergent condition. - New Patient This patient is new to me today: No - Critical Care Critical Care patient: No - Discharge Referral Referred to [facility] Med P.C.: No
[2019-11-13] MEDS ORDERED: ACETAMINOPHEN/CAFFEINE/BUTALBITAL 1 TAB PO ONE (12:41)
[2019-11-13] MEDS: METOCLOPRAMIDE HCL INJECTION 10 MG/2 ML VIAL IVPB SCH ×2 (13:32→17:49)
--- NOTE | 2019-11-13 14:52 | PN ---
Progress Note (short form) - Note Progress Note: s: no chest pain, palps, dizziness, dyspnea. complains of nausea, abd pain Current Medications Sodium Chloride (Normal Saline -) 1,000 mls @ 150 mls/hr IV ASDIR NELLY Last Admin: 11/13/19 13:22 Dose: Not Given Piperacillin Sod/Tazobactam (Sod 3.375 gm/ Dextrose) 50 mls @ 100 mls/hr IVPB Q8H-IV NELLY; Protocol Last Admin: 11/13/19 09:21 Dose: 100 mls/hr Metronidazole (Flagyl 500mg Premixed Ivpb -) 500 mg in 100 mls @ 100 mls/hr IVPB Q8H-IV NELLY Last Admin: 11/13/19 10:11 Dose: 100 mls/hr Pantoprazole Sodium 40 mg/ (Sodium Chloride) 100 mls @ 200 mls/hr IVPB BID NELLY Lorazepam (Ativan Injection -) 1 mg IVPUSH Q4H PRN PRN Reason: NAUSEA AND/OR VOMITING Last Admin: 11/13/19 09:08 Dose: 1 mg Metoclopramide HCl (Reglan Injection -) 10 mg IVPB Q8H-IV NELLY Last Admin: 11/13/19 13:32 Dose: 10 mg Vital Signs Period Temp Pulse Resp BP Sys/Hall Pulse Ox Last 24 Hr 97.6 F-98.5 F 41-52 16-18 130-162/69-82 96-97 Constitutional: Yes: No Distress, Calm Eyes: Yes: Conjunctiva Clear Respiratory: Yes: CTA Bilaterally Gastrointestinal: Yes: Soft (NT) Cardiovascular: Yes: Regular Rate and Rhythm JVD: No Carotid Bruit: No Heart Sounds: Yes: S1, S2 (rrr, no M/R/G) Edema: No Neurological: Yes: Alert, Oriented Psychiatric: Yes: not agitated no jaundice, diaphoresis Assessment/Plan IMP: Probable/suspected viral gastroenteritis Thrombocytopenia probably due to viral illness PAF, [id number] = 0 REC: 1. Treatment of gastroenteritis as per PMD: hydration, supportive measures, further testing per GI, primary 2. Keep K+ and MG2+ repleted. 3. holding home metoprolol for bradycardia here, takes daily at home for palpitations (has not had palps here) 4. Does not require AC. Can consider intermediate school teacher low dose ASA but would hold at this time and defer to the outpatient setting
[2019-11-13 20:11] LABS: HEP B CORE AB, TOT Negative (Negative)
[2019-11-13] MEDS ORDERED: SODIUM CHLORIDE 100 ML IVPB ONE (21:31)
[2019-11-13] MEDS ORDERED: PANTOPRAZOLE SODIUM 40 MG VIAL ONE (21:31)
[2019-11-13] MEDS: PANTOPRAZOLE SODIUM 40 MG in SODIUM CHLORIDE 100 ML IVPB SCH (22:58)
[2019-11-14] MEDS: LORazepam 2 MG/ML SDV VIAL IVPUSH PRN ×4 (00:35→20:42)
[2019-11-14] MEDS ORDERED: PIPERACILLIN/TAZOBACTAM 3.375 GM VIAL IVPB ONE ×3 (01:23→16:26)
[2019-11-14] MEDS ORDERED: DEXTROSE 5%-WATER - 50 ML IVPB ONE ×3 (01:23→16:26)
[2019-11-14] MEDS: PIPERACILLIN/TAZOB 3.375 GM 3.375 GM in DEXTROSE 5%-WATER - 50 ML IVPB SCH ×3 (02:50→17:09)
[2019-11-14] MEDS: METOCLOPRAMIDE HCL INJECTION 10 MG/2 ML VIAL IVPB SCH ×3 (03:48→17:08)
[2019-11-14] MEDS ORDERED: PANTOPRAZOLE SODIUM 40 MG VIAL ONE (09:15)
[2019-11-14] MEDS ORDERED: SODIUM CHLORIDE 100 ML IVPB ONE (09:15)
[2019-11-14] MEDS: PANTOPRAZOLE SODIUM 40 MG in SODIUM CHLORIDE 100 ML IVPB SCH (09:58)
--- NOTE | 2019-11-14 11:14 | PN ---
Progress Note (short form) - Note Progress Note: Dr. Chapin states that he saw patient this morning. Ms. López clinically improving, still with some RUQ discomfort. Appetite improving, diarrhea improving trial of full liquids If worsening abdominal pain, repeat cross sectional imaging with contrast CT A/P Problem List - Problems (1) Colitis Code(s): K52.9 - NONINFECTIVE GASTROENTERITIS AND COLITIS, UNSPECIFIED (2) Abnormal liver function test Code(s): R94.5 - ABNORMAL RESULTS OF LIVER FUNCTION STUDIES (3) Thrombocytopenia Code(s): D69.6 - THROMBOCYTOPENIA, UNSPECIFIED (4) Bradycardia Code(s): R00.1 - BRADYCARDIA, UNSPECIFIED (5) Intractable nausea and vomiting Code(s): R11.2 - NAUSEA WITH VOMITING, UNSPECIFIED
--- NOTE | 2019-11-14 11:14 | PN ---
Progress Note (short form) - Note Progress Note: s: no chest pain, palps, dizziness, dyspnea. Current Medications Generic Name Dose Route Start Last Admin Trade Name Freq PRN Reason Stop Dose Admin Sodium Chloride 1,000 mls @ 150 mls/hr 11/10/19 11:30 11/13/19 13:22 Normal Saline - IV Not Given ASDIR NELLY Piperacillin Sod/Tazobactam 50 mls @ 100 mls/hr 11/12/19 15:45 11/14/19 09:59 Sod 3.375 gm/ Dextrose IVPB 100 mls/hr Q8H-IV NELLY Administration Protocol Metronidazole 500 mg in 100 mls @ 100 mls/hr 11/13/19 10:00 11/14/19 09:59 Flagyl 500mg Premixed Ivpb - IVPB 100 mls/hr Q8H-IV NELLY Administration Lorazepam 1 mg 11/12/19 14:50 11/14/19 07:29 Ativan Injection - IVPUSH 1 mg Q4H PRN Administration NAUSEA AND/OR VOMITING Metoclopramide HCl 10 mg 11/13/19 12:45 11/14/19 09:59 Reglan Injection - IVPB 10 mg Q8H-IV NELLY Administration Vital Signs Period Temp Pulse Resp BP Sys/Hall Pulse Ox Last 24 Hr 98.2 F-98.8 F 41-54 18-18 141-162/77-83 95-96 Constitutional: Yes: No Distress, Calm Eyes: Yes: Conjunctiva Clear Respiratory: Yes: CTA Bilaterally Gastrointestinal: Yes: Soft (NT) Cardiovascular: Yes: Regular Rate and Rhythm JVD: No Carotid Bruit: No Heart Sounds: Yes: S1, S2 (rrr, no M/R/G) Edema: No Neurological: Yes: Alert, Oriented Psychiatric: Yes: not agitated no jaundice, diaphoresis CBC, BMP 11/13/19 06:30 11/13/19 06:30 Assessment/Plan IMP: Probable/suspected viral gastroenteritis Thrombocytopenia probably due to viral illness PAF, [id number] = 1 REC: 1. Treatment of gastroenteritis as per PMD: hydration, supportive measures, further testing per GI, primary 2. Keep K+ and MG2+ repleted. 3. holding home metoprolol for bradycardia here, takes daily at home for palpitations (has not had palps here) 4. Does not require AC. Can consider prison low dose ASA but would hold at this time and defer to the outpatient setting
--- NOTE | 2019-11-14 11:30 | PN ---
Physical Exam: SUBJECTIVE: Patient seen and examined, seen ambulating around hallways. OBJECTIVE: Patient is a 44 year old female with a significant past medical history of pancreatitis, s/p cholecystecomy, current daily smoker. She presents to ED with intractable n/v x 1 day. pt states that she began feeling sick about a week ago after her son at home was sick . she had cough, fevers, myalgia. she went to her PCP who started her on augmentin (she took one dose), and shortly after she became nauseas and has vomited several times. she also endorses diarrhea. Patient being admitted and treated for colitis. Vital Signs Period Temp Pulse Resp BP Sys/Hall Pulse Ox Last 24 Hr 98.2 F-98.8 F 41-54 18-18 141-162/77-83 95-96 GENERAL: The patient is awake, alert, and fully oriented, in no acute distress. HEAD: Normal with no signs of trauma. EYES: PERRL, extraocular movements intact, sclera anicteric, conjunctiva clear. No ptosis. ENT: Ears normal, nares patent, oropharynx clear without exudates, moist mucous membranes. NECK: Trachea midline, full range of motion, supple. LUNGS: Breath sounds equal, clear to auscultation bilaterally, HEART: Regular rate and rhythm, S1, S2 without murmur, rub or gallop. ABDOMEN: denies abdominal pain or nausea, tolerating meals. rebound, no hepatosplenomegaly, no masses. EXTREMITIES: no edema. NEUROLOGICAL: Normal speech, gait not observed. PSYCH: Normal mood, normal affect. SKIN: Warm, dry, normal turgor, no rashes or lesions noted Laboratory Results - last 24 hr 11/12/19 05:10 Hep A IgM Ab Confirm Negative Hepatitis A Ab Total Positive H Hep Bs Antigen Negative Hep Bs Antibody Non reactive Hep B Core Total Ab Negative Hep B Core IgM Ab Negative Hepatitis Be Antibody Negative Hepatitis Be Antigen Negative Active Medications Generic Name Dose Route Start Last Admin Trade Name Freq PRN Reason Stop Dose Admin Sodium Chloride 1,000 mls @ 150 mls/hr 11/10/19 11:30 11/13/19 13:22 Normal Saline - IV Not Given ASDIR NELLY Piperacillin Sod/Tazobactam 50 mls @ 100 mls/hr 11/12/19 15:45 12/31/19 09:59 Sod 3.375 gm/ Dextrose IVPB 100 mls/hr Q8H-IV NELLY Administration Protocol Metronidazole 500 mg in 100 mls @ 100 mls/hr 11/13/19 10:00 11/14/19 09:59 Flagyl 500mg Premixed Ivpb - IVPB 100 mls/hr Q8H-IV NELLY Administration Lorazepam 1 mg 11/12/19 14:50 11/14/19 07:29 Ativan Injection - IVPUSH 1 mg Q4H PRN Administration NAUSEA AND/OR VOMITING Metoclopramide HCl 10 mg 11/13/19 12:45 11/14/19 09:59 Reglan Injection - IVPB 10 mg Q8H-IV NELLY Administration ASSESSMENT/PLAN: Problem List - Problems (1) Colitis Assessment/Plan: pancolits per ct scan c diff negative on Zosyn and flagyl abdomen mri negative for acute findings Code(s): K52.9 - NONINFECTIVE GASTROENTERITIS AND COLITIS, UNSPECIFIED (2) Infectious diarrhea Assessment/Plan: negative for c diff. stool culture pending. Code(s): A09 - INFECTIOUS GASTROENTERITIS AND COLITIS, UNSPECIFIED (3) Abnormal liver function test Assessment/Plan: elevated liver enzymes, only took one dose of Augmentin elevated liver function likely secondary to dehydration RUQ shows mild hepatomgaly, otherwise normal exam monitor liver enzymes daily avoid meds that can elevate ast/alt gi following Code(s): R94.5 - ABNORMAL RESULTS OF LIVER FUNCTION STUDIES (4) Elevated liver enzymes Assessment/Plan: trending down Code(s): R74.8 - ABNORMAL LEVELS OF OTHER SERUM ENZYMES (5) Intractable nausea and vomiting Assessment/Plan: no further events, mild nausea, no vomiting avoid zofran for prolonged qtc Code(s): R11.2 - NAUSEA WITH VOMITING, UNSPECIFIED (6) Nausea & vomiting Assessment/Plan: on ativan prn, also helps with abdominal pain. but no nausea/vomiting today Code(s): R11.2 - NAUSEA WITH VOMITING, UNSPECIFIED (7) Thrombocytopenia Assessment/Plan: resolved Code(s): D69.6 - THROMBOCYTOPENIA, UNSPECIFIED (8) Afib Assessment/Plan: Seen by cardiology and patient does not require anticoagulation possible ASA as outpatient. cardiology following Code(s): I48.91 - UNSPECIFIED ATRIAL FIBRILLATION Qualifiers: Atrial fibrillation type: paroxysmal Qualified Code(s): I48.0 - Paroxysmal atrial fibrillation (9) Prophylactic measure Assessment/Plan: fen full liquid monitor electrolytes advance diet per gi full code Code(s): Z29.9 - ENCOUNTER FOR PROPHYLACTIC MEASURES, UNSPECIFIED Visit type - Emergency Visit Emergency Visit: Yes ED Registration Date: 11/10/19 Care time: The patient presented to the Emergency Department on the above date and was hospitalized for further evaluation of their emergent condition. - New Patient This patient is new to me today: No - Critical Care Critical Care patient: No - Discharge Referral Referred to [facility] Med P.C.: No
[2019-11-14 13:13] LABS: BASO % 0.2 % (0-2.0); EOS % 1.2 % (0-4.5); HEMATOCRIT 39.3 % (32.4-45.2); HEMOGLOBIN 13.4 GM/dL (10.7-15.3); LYMPH % 34.3 % (8-40); MCH 31.2 pg (25.7-33.7); MEAN CELL VOLUME 91.7 fl (80-96); MEAN PLT VOLUME 9.5 fl (7.5-11.1); MONO % 8.7 % (3.8-10.2); NEUT % 55.6 % (42.8-82.8); PLATELET COUNT 181 K/MM3 (134-434); RBC 4.29 M/mm3 (3.60-5.2)
[2019-11-14 13:39] LABS: ALBUMIN 3.6 g/dl (3.4-5.0); BILIRUBIN,TOTAL 0.9 mg/dL (0.2-1); BLOOD UREA NITROGEN 4.1 mg/dL (7-18); CALCIUM 8.7 mg/dL (8.5-10.1); CREATININE 0.7 mg/dL (0.55-1.3); MAGNESIUM 2.1 mg/dL (1.8-2.4); POTASSIUM 3.8 mmol/L (3.5-5.1); TOT PROT 6.6 g/dl (6.4-8.2)
--- NOTE | 2019-11-14 13:44 | PN ---
Progress Note, Physician History of Present Illness: stable no new issues - Current Medication List Current Medications: Active Medications Sodium Chloride (Normal Saline -) 1,000 mls @ 150 mls/hr IV ASDIR NELLY Last Admin: 11/13/19 13:22 Dose: Not Given Piperacillin Sod/Tazobactam (Sod 3.375 gm/ Dextrose) 50 mls @ 100 mls/hr IVPB Q8H-IV NELLY; Protocol Last Admin: 11/14/19 09:59 Dose: 100 mls/hr Metronidazole (Flagyl 500mg Premixed Ivpb -) 500 mg in 100 mls @ 100 mls/hr IVPB Q8H-IV NELLY Last Admin: 11/14/19 09:59 Dose: 100 mls/hr Lorazepam (Ativan Injection -) 1 mg IVPUSH Q4H PRN PRN Reason: NAUSEA AND/OR VOMITING Last Admin: 11/14/19 07:29 Dose: 1 mg Metoclopramide HCl (Reglan Injection -) 10 mg IVPB Q8H-IV NELLY Last Admin: 11/14/19 09:59 Dose: 10 mg - Objective Vital Signs: Vital Signs Temperature 98.2 F 11/14/19 09:00 Pulse Rate 54 L 11/14/19 09:00 Respiratory Rate 18 11/14/19 09:00 Blood Pressure 141/77 11/14/19 09:00 O2 Sat by Pulse Oximetry (%) 96 11/14/19 09:00 Constitutional: Yes: No Distress, Calm Cardiovascular: Yes: S1, S2 Respiratory: Yes: Regular, CTA Bilaterally Gastrointestinal: Yes: Normal Bowel Sounds, Soft Musculoskeletal: Yes: WNL Extremities: Yes: WNL Neurological: Yes: Alert, Oriented Psychiatric: Yes: Alert, Oriented Labs: CBC, BMP 11/14/19 12:25 11/14/19 12:25 INR, PTT INR 1.02 (0.83-1.09) 11/09/19 22:35 Assessment/Plan 44 yo F PMH of Afib( not on AC ) , hx of pancreatitis , s/p cholecystecomy, presents to ED with intractable n/v x 1 day. vomiting transaminitis afib abd pain dixon colitis plan continue abx monitor rest as per the team will see how patient does tomorrow
[2019-11-14] MEDS: SODIUM CHLORIDE 1,000 ML IV SCH ×2 (15:27→21:23)
[2019-11-15] MEDS ORDERED: PIPERACILLIN/TAZOBACTAM 3.375 GM VIAL IVPB ONE ×2 (00:43→09:51)
[2019-11-15] MEDS ORDERED: DEXTROSE 5%-WATER - 50 ML IVPB ONE ×2 (00:43→09:52)
[2019-11-15] MEDS: PIPERACILLIN/TAZOB 3.375 GM 3.375 GM in DEXTROSE 5%-WATER - 50 ML IVPB SCH ×2 (02:01→10:11)
[2019-11-15] MEDS: METOCLOPRAMIDE HCL INJECTION 10 MG/2 ML VIAL IVPB SCH ×2 (02:57→11:20)
[2019-11-15 06:56] LABS: BASO % 0.1 % (0-2.0); EOS % 1.3 % (0-4.5); HEMATOCRIT 37.1 % (32.4-45.2); HEMOGLOBIN 12.7 GM/dL (10.7-15.3); LYMPH % 29.9 % (8-40); MCH 31.2 pg (25.7-33.7); MCHC 34.4 g/dl (32.0-36.0); MEAN CELL VOLUME 90.7 fl (80-96); MEAN PLT VOLUME 8.9 fl (7.5-11.1); MONO % 10.8 % (3.8-10.2); NEUT % 57.9 % (42.8-82.8); PLATELET COUNT 187 K/MM3 (134-434); RBC 4.09 M/mm3 (3.60-5.2); RDW 12.4 % (11.6-15.6)
[2019-11-15] MEDS: SODIUM CHLORIDE 1,000 ML IV SCH ×3 (07:05→18:14)
[2019-11-15 07:41] LABS: ALBUMIN 3.4 g/dl (3.4-5.0); BILIRUBIN,TOTAL 0.7 mg/dL (0.2-1); BLOOD UREA NITROGEN 3.7 mg/dL (7-18); CALCIUM 8.5 mg/dL (8.5-10.1); CREATININE 0.7 mg/dL (0.55-1.3); MAGNESIUM 1.9 mg/dL (1.8-2.4); POTASSIUM 4.1 mmol/L (3.5-5.1); TOT PROT 6.3 g/dl (6.4-8.2)
[2019-11-15] MEDS: LORazepam 2 MG/ML SDV VIAL IVPUSH PRN ×2 (10:11→21:26)
--- NOTE | 2019-11-15 11:09 | PN.GI ---
GI Progress Note Subjective: For Dr. Chapin: States feeling well No abdominal pain No diarrhea Wants to eat food - Objective Vital Signs: Vital Signs Temperature 97.5 F L 11/15/19 06:14 Pulse Rate 53 L 11/15/19 06:14 Respiratory Rate 18 11/15/19 06:14 Blood Pressure 119/59 L 11/15/19 06:14 O2 Sat by Pulse Oximetry (%) 96 11/14/19 20:18 Constitutional: Calm Eyes: No: Sclera Icterus Cardiovascular: Yes: Bradycardia. No: Murmur Respiratory: Yes: CTA Bilaterally Gastrointestinal Inspection: No: Distention ...Auscultate: Yes: Normoactive Bowel Sounds ...Palpate: Yes: Soft. No: Hepatomegaly, Splenomegaly, Tenderness Edema: No (No LE edema) Labs: CBC, BMP 11/15/19 06:21 11/15/19 06:21 INR, PTT INR 1.02 (0.83-1.09) 11/09/19 22:35 Problem List - Problems (1) Colitis Assessment/Plan: Clinically improved, no diarrhea Management of Abx per ID. No need for continued abx from GI standpoint Code(s): K52.9 - NONINFECTIVE GASTROENTERITIS AND COLITIS, UNSPECIFIED (2) Abnormal liver function test Assessment/Plan: improving without intervention hepatitis B surface antibody negative. Should be offered vaccination as outpatient Avoid hepatotoxic agents Code(s): R94.5 - ABNORMAL RESULTS OF LIVER FUNCTION STUDIES (3) Thrombocytopenia Assessment/Plan: Resolved Code(s): D69.6 - THROMBOCYTOPENIA, UNSPECIFIED (4) Bradycardia Assessment/Plan: Despite not being on beta margret as an inpatient. follow-up per PMD / cardiology Code(s): R00.1 - BRADYCARDIA, UNSPECIFIED (5) Intractable nausea and vomiting Assessment/Plan: Resolved Outpatient follow-up with Dr. Chapin Code(s): R11.2 - NAUSEA WITH VOMITING, UNSPECIFIED
--- NOTE | 2019-11-15 13:58 | PN ---
Progress Note, Physician History of Present Illness: stable no new issues started and tolerated oral diet - Current Medication List Current Medications: Active Medications Sodium Chloride (Normal Saline -) 1,000 mls @ 150 mls/hr IV ASDIR NELLY Last Admin: 11/15/19 07:05 Dose: 150 mls/hr Piperacillin Sod/Tazobactam (Sod 3.375 gm/ Dextrose) 50 mls @ 100 mls/hr IVPB Q8H-IV NELLY; Protocol Last Admin: 11/15/19 10:11 Dose: 100 mls/hr Metronidazole (Flagyl 500mg Premixed Ivpb -) 500 mg in 100 mls @ 100 mls/hr IVPB Q8H-IV NELLY Last Admin: 11/15/19 10:43 Dose: 100 mls/hr Lorazepam (Ativan Injection -) 1 mg IVPUSH Q4H PRN PRN Reason: NAUSEA AND/OR VOMITING Last Admin: 11/15/19 10:11 Dose: 1 mg - Objective Vital Signs: Vital Signs Temperature 98.7 F 11/15/19 10:00 Pulse Rate 52 L 11/15/19 10:00 Respiratory Rate 18 11/15/19 10:00 Blood Pressure 144/86 11/15/19 10:00 O2 Sat by Pulse Oximetry (%) 97 11/15/19 09:00 Constitutional: Yes: No Distress, Calm Cardiovascular: Yes: S1, S2 Respiratory: Yes: Regular, CTA Bilaterally Gastrointestinal: Yes: Normal Bowel Sounds, Soft Musculoskeletal: Yes: WNL Extremities: Yes: WNL Neurological: Yes: Alert, Oriented Psychiatric: Yes: Alert, Oriented Labs: CBC, BMP 11/15/19 06:21 11/15/19 06:21 INR, PTT INR 1.02 (0.83-1.09) 11/09/19 22:35 Assessment/Plan 44 yo F PMH of Afib( not on AC ) , hx of pancreatitis , s/p cholecystecomy, presents to ED with intractable n/v x 1 day. vomiting transaminitis afib abd pain dixon colitis plan changed to oral augmentin for 5 more days rest as per the team
[2019-11-15] MEDS: CYCLOBENZAPRINE HCL 5 MG TABLET PO SCH (14:29)
--- NOTE | 2019-11-15 16:01 | DS ---
Physical Exam: SUBJECTIVE: Patient seen and examined OBJECTIVE: Vital Signs Period Temp Pulse Resp BP Sys/Hall Pulse Ox Last 24 Hr 97.5 F-99 F 48-65 16-20 119-144/59-86 96-97 PHYSICAL EXAM GENERAL: The patient is awake, alert, and fully oriented, in no acute distress. HEAD: Normal with no signs of trauma. EYES: PERRL, extraocular movements intact, sclera anicteric, conjunctiva clear. ENT: Ears normal, nares patent, oropharynx clear without exudates, moist mucous membranes. NECK: Trachea midline, full range of motion, supple. LUNGS: Breath sounds equal, clear to auscultation bilaterally, no wheezes, no crackles, no accessory muscle use. HEART: Regular rate and rhythm, S1, S2 without murmur, rub or gallop. ABDOMEN: Soft, nontender, nondistended, normoactive bowel sounds, no guarding, no rebound, no hepatosplenomegaly, no masses. EXTREMITIES: 2+ pulses, warm, well-perfused, no edema. NEUROLOGICAL: Cranial nerves II through XII grossly intact. Normal speech, gait not observed. PSYCH: Normal mood, normal affect. SKIN: Warm, dry, normal turgor, no rashes or lesions noted. LABS Laboratory Results - last 24 hr 11/12/19 11/15/19 11/15/19 02:30 06:21 06:21 WBC 5.0 RBC 4.09 Hgb 12.7 Hct 37.1 MCV 90.7 MCH 31.2 MCHC 34.4 RDW 12.4 Plt Count 187 MPV 8.9 Absolute Neuts (auto) 2.9 Neutrophils % 57.9 Lymphocytes % 29.9 Monocytes % 10.8 H Eosinophils % 1.3 Basophils % 0.1 Nucleated RBC % 0 Sodium 142 Potassium 4.1 Chloride 107 Carbon Dioxide 28 Anion Gap 7 L BUN 3.7 L Creatinine 0.7 Est GFR (CKD-EPI)AfAm 123.86 Est GFR (CKD-EPI)NonAf 106.87 Random Glucose 80 Calcium 8.5 Magnesium 1.9 Total Bilirubin 0.7 AST 41 H ALT 105 H Alkaline Phosphatase 112 Total Protein 6.3 L Albumin 3.4 Stool O & P Wet [place] & P Permanent Slide Final report HOSPITAL COURSE: Date of Admission:11/10/19 Date of Discharge: 11/15/19 Discharge Summary Problems reviewed: Yes Reason For Visit: INTRACTABLE VOMITING WITH NAUSEA Current Active Problems Abnormal liver function test (Acute) Acute bronchitis (Acute) Afib (Acute) Afib (Acute) Afib (Acute) Bradycardia (Acute) Colitis (Acute) Elevated liver enzymes (Acute) Infectious diarrhea (Acute) Intractable nausea and vomiting (Acute) Intractable nausea and vomiting (Acute) Intractable nausea and vomiting (Acute) Nausea & vomiting (Acute) Nausea & vomiting (Acute) Nausea & vomiting (Acute) Pancreatic cyst (Acute) Pancreatitis (Acute) Pancreatitis (Acute) Pancreatitis (Acute) Prophylactic measure (Acute) Prophylactic measure (Acute) Prophylactic measure (Acute) RUQ pain (Acute) Thrombocytopenia (Acute) Thrombocytopenia (Acute) Condition: Improved - Instructions Diet, Activity, Other Instructions: Mrs López: You were admitted to [facility] on 11/10/2019 for colitis and will be sent home today. During your stay, you were evaluated by a gastroentrologist. Here are our discharge instructions: What is colitis? colitis is inflammation of your large intestine. Treatment consists of antibiotics and bowel rest. You will be sent home with five (5) more days of antibiotics. Please follow up with Dr. Chapin by calling his office to make an appointment. Thank you for allowing us to care for you. Please continue all the medications as outlined in your discharge instructions. Referrals: Arnold Chapin MD [Staff Physician] - Ginny Zhang MD [Primary Care Provider] - Disposition: HOME - Home Medications Comprehensive Discharge Medication List: Ambulatory Orders Fluoxetine HCl [Prozac -] 40 mg PO DAILY 03/05/12 Metoprolol Succinate [Toprol Xl] 25 mg PO DAILY 12/27/18 Amox-Tr/K Cl [Augmentin 500-125mg Tablet -] 1 tab PO BID@0800,1730 #10 tablet Pantoprazole Sodium [Protonix -] 40 mg PO DAILY #30 tablet.ec 11/15/19 Problem List - Problems (1) Colitis Code(s): K52.9 - NONINFECTIVE GASTROENTERITIS AND COLITIS, UNSPECIFIED (2) Infectious diarrhea Code(s): A09 - INFECTIOUS GASTROENTERITIS AND COLITIS, UNSPECIFIED (3) Abnormal liver function test Code(s): R94.5 - ABNORMAL RESULTS OF LIVER FUNCTION STUDIES (4) Elevated liver enzymes Code(s): R74.8 - ABNORMAL LEVELS OF OTHER SERUM ENZYMES (5) Intractable nausea and vomiting Code(s): R11.2 - NAUSEA WITH VOMITING, UNSPECIFIED (6) Nausea & vomiting Code(s): R11.2 - NAUSEA WITH VOMITING, UNSPECIFIED (7) Thrombocytopenia Code(s): D69.6 - THROMBOCYTOPENIA, UNSPECIFIED (8) Afib Code(s): I48.91 - UNSPECIFIED ATRIAL FIBRILLATION Qualifiers: Atrial fibrillation type: paroxysmal Qualified Code(s): I48.0 - Paroxysmal atrial fibrillation (9) Prophylactic measure Code(s): Z29.9 - ENCOUNTER FOR PROPHYLACTIC MEASURES, UNSPECIFIED - Discharge Referral Referred to [facility] No
[2019-11-15] MEDS ORDERED: ACETAMINOPHEN 1000 MG/100 ML VIAL (NON FORMULARY) IVPB ONE (16:15)
[2019-11-15] MEDS ORDERED: traMADol HCL 50 MG TABLET PO ONE (16:27)
[2019-11-15] MEDS ORDERED: AMOX TR/POT CLAV 500MG/125MG TABLETS (FP) PO SCH (17:30)
--- NOTE | 2019-11-15 18:48 | PN ---
Physical Exam: SUBJECTIVE: Patient seen and examined at the bedside. wanted to go home, then began to vomit after taking augmentin. also complained of neck stiffness after waking up this morning. OBJECTIVE: patient tolerated regular diet and felt well, asked to go home and follow up with Dr. Chapin as an outpatient. she developed nausea/vomiting after taking the Augmentin and had an episodes vomiting of undigested food abdominal xray ordered, ID informed. Patient is a 44 year old female with a significant past medical history of pancreatitis, s/p cholecystecomy, current daily smoker. She presents to ED with intractable n/v x 1 day. pt states that she began feeling sick about a week ago after her son at home was sick . she had cough, fevers, myalgia. she went to her PCP who started her on augmentin (she took one dose), and shortly after she became nauseas and has vomited several times. she also endorses diarrhea. Patient being admitted and treated for colitis. Vital Signs Period Temp Pulse Resp BP Sys/Hall Pulse Ox Last 24 Hr 97.5 F-99 F 48-65 16-20 119-144/59-86 96-97 GENERAL: The patient is awake, alert, and fully oriented, in no acute distress. HEAD: Normal with no signs of trauma. EYES: PERRL, extraocular movements intact, sclera anicteric, conjunctiva clear. No ptosis. ENT: Ears normal, nares patent, oropharynx clear without exudates, moist mucous membranes. NECK: Trachea midline, full range of motion, supple. LUNGS: Breath sounds equal, clear to auscultation bilaterally, HEART: Regular rate and rhythm, S1, S2 without murmur, rub or gallop. ABDOMEN: abdomen soft, non distended, + bowel sounds rebound, no hepatosplenomegaly, no masses. EXTREMITIES: no edema. NEUROLOGICAL: Normal speech, gait not observed. PSYCH: Normal mood, normal affect. SKIN: Warm, dry, normal turgor, no rashes or lesions noted Laboratory Results - last 24 hr 11/12/19 11/15/19 11/15/19 02:30 06:21 06:21 WBC 5.0 RBC 4.09 Hgb 12.7 Hct 37.1 MCV 90.7 MCH 31.2 MCHC 34.4 RDW 12.4 Plt Count 187 MPV 8.9 Absolute Neuts (auto) 2.9 Neutrophils % 57.9 Lymphocytes % 29.9 Monocytes % 10.8 H Eosinophils % 1.3 Basophils % 0.1 Nucleated RBC % 0 Sodium 142 Potassium 4.1 Chloride 107 Carbon Dioxide 28 Anion Gap 7 L BUN 3.7 L Creatinine 0.7 Est GFR (CKD-EPI)AfAm 123.86 Est GFR (CKD-EPI)NonAf 106.87 Random Glucose 80 Calcium 8.5 Magnesium 1.9 Total Bilirubin 0.7 AST 41 H ALT 105 H Alkaline Phosphatase 112 Total Protein 6.3 L Albumin 3.4 Stool O & P Wet [place] & P Permanent Slide Final report Active Medications Generic Name Dose Route Start Last Admin Trade Name Freq PRN Reason Stop Dose Admin Cyclobenzaprine HCl 5 mg 11/15/19 14:30 11/15/19 14:29 Cyclobenzaprine Hcl PO 5 mg DAILY NELLY Administration Sodium Chloride 1,000 mls @ 150 mls/hr 11/10/19 11:30 11/15/19 18:14 Normal Saline - IV 150 mls/hr ASDIR NELLY Administration Metronidazole 500 mg in 100 mls @ 100 mls/hr 11/13/19 10:00 11/15/19 17:57 Flagyl 500mg Premixed Ivpb - IVPB 100 mls/hr Q8H-IV NELLY Administration Piperacillin Sod/Tazobactam 50 mls @ 100 mls/hr 11/16/19 02:00 Sod 3.375 gm/ Dextrose IVPB Q8H-IV NELLY Protocol Lorazepam 1 mg 11/15/19 18:44 Ativan Injection - IVPUSH Q4H PRN NAUSEA AND/OR VOMITING ASSESSMENT/PLAN: Problem List - Problems (1) Colitis Code(s): K52.9 - NONINFECTIVE GASTROENTERITIS AND COLITIS, UNSPECIFIED (2) Infectious diarrhea Code(s): A09 - INFECTIOUS GASTROENTERITIS AND COLITIS, UNSPECIFIED (3) Abnormal liver function test Code(s): R94.5 - ABNORMAL RESULTS OF LIVER FUNCTION STUDIES (4) Elevated liver enzymes Code(s): R74.8 - ABNORMAL LEVELS OF OTHER SERUM ENZYMES (5) Intractable nausea and vomiting Code(s): R11.2 - NAUSEA WITH VOMITING, UNSPECIFIED (6) Nausea & vomiting Code(s): R11.2 - NAUSEA WITH VOMITING, UNSPECIFIED (7) Thrombocytopenia Code(s): D69.6 - THROMBOCYTOPENIA, UNSPECIFIED (8) Afib Code(s): I48.91 - UNSPECIFIED ATRIAL FIBRILLATION Qualifiers: Atrial fibrillation type: paroxysmal Qualified Code(s): I48.0 - Paroxysmal atrial fibrillation (9) Prophylactic measure Code(s): Z29.9 - ENCOUNTER FOR PROPHYLACTIC MEASURES, UNSPECIFIED
[2019-11-16] MEDS ORDERED: DEXTROSE 5%-WATER - 50 ML IVPB ONE ×2 (01:21→08:34)
[2019-11-16] MEDS ORDERED: PIPERACILLIN/TAZOBACTAM 3.375 GM VIAL IVPB ONE ×3 (01:21→08:34)
[2019-11-16] MEDS: LORazepam 2 MG/ML SDV VIAL IVPUSH PRN (01:25)
[2019-11-16] MEDS ORDERED: ACETAMINOPHEN 1000 MG/100 ML VIAL (NON FORMULARY) IVPB ONE ×2 (01:51→11:51)
[2019-11-16] MEDS ORDERED: PIPERACILLIN/TAZOB 3.375 GM 3.375 GM in DEXTROSE 5%-WATER - 50 ML IVPB SCH (02:00)
[2019-11-16] MEDS: PIPERACILLIN/TAZOB 3.375 GM 3.375 GM in DEXTROSE 5%-WATER - 50 ML IVPB SCH ×2 (02:47→11:04)
[2019-11-16 07:07] LABS: BASO % 0.1 % (0-2.0); EOS % 1.3 % (0-4.5); HEMOGLOBIN 11.9 GM/dL (10.7-15.3); LYMPH % 29.7 % (8-40); MCH 30.9 pg (25.7-33.7); MEAN CELL VOLUME 90.9 fl (80-96); MEAN PLT VOLUME 8.7 fl (7.5-11.1); MONO % 11.3 % (3.8-10.2); NEUT % 57.6 % (42.8-82.8); PLATELET COUNT 205 K/MM3 (134-434); RBC 3.85 M/mm3 (3.60-5.2); RDW 12.9 % (11.6-15.6); WHITE BLOOD COUNT 6.2 K/mm3 (4.0-10.0)
[2019-11-16 07:44] LABS: ALBUMIN 3.2 g/dl (3.4-5.0); BILIRUBIN,TOTAL 0.5 mg/dL (0.2-1); CALCIUM 8.4 mg/dL (8.5-10.1); CREATININE 0.6 mg/dL (0.55-1.3); MAGNESIUM 1.9 mg/dL (1.8-2.4); POTASSIUM 3.4 mmol/L (3.5-5.1); TOT PROT 5.7 g/dl (6.4-8.2)
[2019-11-16] MEDS ORDERED: KCL 10 MEQ IVPB 10 MEQ/100 ML INFUS.BAG IVPB SCH (08:00)
[2019-11-16 08:26] LABS: BLOOD UREA NITROGEN 2.8 mg/dL (7-18)
[2019-11-16] MEDS: CYCLOBENZAPRINE HCL 5 MG TABLET PO SCH (09:10)
[2019-11-16] MEDS ORDERED: MORPHINE SULFATE 2 MG/ML VIAL IVPUSH ONE (09:15)
--- NOTE | 2019-11-16 09:36 | PN ---
Progress Note, Physician History of Present Illness: patient with neck pain had vomiting - Current Medication List Current Medications: Active Medications Cyclobenzaprine HCl (Cyclobenzaprine Hcl) 5 mg PO DAILY [facility] Last Admin: 11/16/19 09:10 Dose: Not Given Fluoxetine HCl (Prozac -) 40 mg PO DAILY [facility] Sodium Chloride (Normal Saline -) 1,000 mls @ 150 mls/hr IV ASDIR NELLY Last Admin: 11/15/19 18:14 Dose: 150 mls/hr Metronidazole (Flagyl 500mg Premixed Ivpb -) 500 mg in 100 mls @ 100 mls/hr IVPB Q8H-IV NELLY Last Admin: 11/16/19 01:26 Dose: 100 mls/hr Piperacillin Sod/Tazobactam (Sod 3.375 gm/ Dextrose) 50 mls @ 100 mls/hr IVPB Q8H-IV NELLY; Protocol Piperacillin Sod/Tazobactam (Sod 3.375 gm/ Dextrose) 50 mls @ 100 mls/hr IVPB Q8H-IV NELLY; Protocol Stop: 11/16/19 18:29 Last Admin: 11/16/19 02:47 Dose: 100 mls/hr Lorazepam (Ativan Injection -) 1 mg IVPUSH Q4H PRN PRN Reason: NAUSEA AND/OR VOMITING Last Admin: 11/16/19 01:25 Dose: 1 mg Methyl Salicylate (Earl-Lewis -) 1 applic TP DAILY [facility] Metoprolol Succinate (Toprol Xl -) 25 mg PO DAILY [facility] Last Admin: 11/16/19 09:06 Dose: 25 mg - Objective Vital Signs: Vital Signs Temperature 98.2 F 11/16/19 06:00 Pulse Rate 68 11/16/19 06:30 Respiratory Rate 20 11/16/19 06:30 Blood Pressure 160/80 11/16/19 06:30 O2 Sat by Pulse Oximetry (%) 97 11/15/19 21:00 Constitutional: Yes: No Distress, Calm Cardiovascular: Yes: Regular Rate and Rhythm, S1, S2 Respiratory: Yes: Regular, CTA Bilaterally Gastrointestinal: Yes: Normal Bowel Sounds, Soft Musculoskeletal: Yes: WNL Extremities: Yes: WNL Neurological: Yes: Alert, Oriented Psychiatric: Yes: Alert, Oriented Labs: CBC, BMP 11/16/19 06:30 11/16/19 06:30 INR, PTT INR 1.02 (0.83-1.09) 11/09/19 22:35 Assessment/Plan 44 yo F PMH of Afib( not on AC ) , hx of pancreatitis , s/p cholecystecomy, presents to ED with intractable n/v x 1 day. vomiting transaminitis afib abd pain dixon colitis plan patient can be changed to oral levaquin if she cannot tolerate augmentin
[2019-11-16] MEDS ORDERED: FLUoxetine HCL 20 MG CAPSULE (FP) PO SCH (10:00)
[2019-11-16] MEDS ORDERED: metoPROLOL SUCCINATE 25 MG TAB.SR.24H (FP) PO SCH (10:00)
[2019-11-16] MEDS ORDERED: METHYL SALICYLATE/MENTHOL OINT 30 GM TUBE TP SCH (10:00)
[2019-11-16 10:15] VITALS: TEMP 98
[2019-11-16] MEDS ORDERED: PT OWN MED DRAWER 7, Y5N ONE (11:43)
[2019-11-16] MEDS: SODIUM CHLORIDE 1,000 ML IV SCH (11:56)
[2019-11-16 14:54] VITALS: BP 133/85; PULSE 75
--- NOTE | 2019-11-16 15:42 | PN ---
Progress Note (short form) - Note Progress Note: s: no chest pain, palps, dizziness, dyspnea. nausea and vomiting with augmentin last night, also complains of neck pain. Current Medications Cyclobenzaprine HCl (Cyclobenzaprine Hcl) 5 mg PO DAILY [facility] Last Admin: 11/16/19 09:10 Dose: Not Given Fluoxetine HCl (Prozac -) 40 mg PO DAILY [facility] Last Admin: 11/16/19 11:56 Dose: 40 mg Sodium Chloride (Normal Saline -) 1,000 mls @ 150 mls/hr IV ASDIR [facility] Last Admin: 11/16/19 11:56 Dose: Not Given Metronidazole (Flagyl 500mg Premixed Ivpb -) 500 mg in 100 mls @ 100 mls/hr IVPB Q8H-IV NELLY Last Admin: 11/16/19 11:56 Dose: 100 mls/hr Piperacillin Sod/Tazobactam (Sod 3.375 gm/ Dextrose) 50 mls @ 100 mls/hr IVPB Q8H-IV NELLY; Protocol Piperacillin Sod/Tazobactam (Sod 3.375 gm/ Dextrose) 50 mls @ 100 mls/hr IVPB Q8H-IV NELLY; Protocol Stop: 11/16/19 18:29 Last Admin: 11/16/19 11:04 Dose: 100 mls/hr Lorazepam (Ativan Injection -) 1 mg IVPUSH Q4H PRN PRN Reason: NAUSEA AND/OR VOMITING Last Admin: 11/16/19 01:25 Dose: 1 mg Methyl Salicylate (Earl-Lewis -) 1 applic TP DAILY [facility] Last Admin: 11/16/19 11:05 Dose: Not Given Metoprolol Succinate (Toprol Xl -) 25 mg PO DAILY [facility] Last Admin: 11/16/19 09:06 Dose: 25 mg Vital Signs Period Temp Pulse Resp BP Sys/Hall Pulse Ox Last 24 Hr 98.0 F-98.4 F 50-118 20-20 118-176/74-88 96-97 Constitutional: Yes: No Distress, Calm Eyes: Yes: Conjunctiva Clear Respiratory: Yes: CTA Bilaterally Gastrointestinal: Yes: Soft (NT) Cardiovascular: Yes: Regular Rate and Rhythm JVD: No Carotid Bruit: No Heart Sounds: Yes: S1, S2 (rrr, no M/R/G) Edema: No Neurological: Yes: Alert, Oriented Psychiatric: Yes: not agitated no jaundice, diaphoresis Assessment/Plan IMP: Probable/suspected viral gastroenteritis Thrombocytopenia probably due to viral illness PAF, [id number] = 1 REC: 1. Treatment of gastroenteritis as per PMD: hydration, supportive measures, further testing per GI, primary - transitioning to PO abx 2. Keep K+ and MG2+ repleted. 3. metoprolol held for bradycardia 4. Does not require AC. Can consider senior living low dose ASA but would hold at this time and defer to the outpatient setting
--- NOTE | 2019-11-16 16:58 | DS ---
Physical Exam: SUBJECTIVE: Patient seen and examined OBJECTIVE: Vital Signs Period Temp Pulse Resp BP Sys/Hall Pulse Ox Last 24 Hr 98.0 F-98.4 F 50-118 20-20 118-176/74-88 96-97 PHYSICAL EXAM GENERAL: The patient is awake, alert, and fully oriented, in no acute distress. HEAD: Normal with no signs of trauma. EYES: PERRL, extraocular movements intact, sclera anicteric, conjunctiva clear. ENT: Ears normal, nares patent, oropharynx clear without exudates, moist mucous membranes. NECK: Trachea midline, full range of motion, supple. LUNGS: Breath sounds equal, clear to auscultation bilaterally, no wheezes, no crackles, no accessory muscle use. HEART: Regular rate and rhythm, S1, S2 without murmur, rub or gallop. ABDOMEN: Soft, nontender, nondistended, normoactive bowel sounds, no guarding, no rebound, no hepatosplenomegaly, no masses. EXTREMITIES: 2+ pulses, warm, well-perfused, no edema. NEUROLOGICAL: Cranial nerves II through XII grossly intact. Normal speech, gait not observed. PSYCH: Normal mood, normal affect. SKIN: Warm, dry, normal turgor, no rashes or lesions noted. LABS Laboratory Results - last 24 hr 11/14/19 11/16/19 11/16/19 07:05 06:30 06:30 WBC 6.2 RBC 3.85 Hgb 11.9 Hct 35.0 MCV 90.9 MCH 30.9 MCHC 34.0 RDW 12.9 Plt Count 205 MPV 8.7 Absolute Neuts (auto) 3.5 Neutrophils % 57.6 Lymphocytes % 29.7 Monocytes % 11.3 H Eosinophils % 1.3 Basophils % 0.1 Nucleated RBC % 0 Sodium 143 Potassium 3.4 L Chloride 109 H Carbon Dioxide 26 Anion Gap 8 BUN 2.8 L* Creatinine 0.6 Est GFR (CKD-EPI)AfAm 130.30 Est GFR (CKD-EPI)NonAf 112.42 Random Glucose 86 Calcium 8.4 L Magnesium 1.9 Total Bilirubin 0.5 AST 31 ALT 78 H Alkaline Phosphatase 96 Total Protein 5.7 L Albumin 3.2 L Smooth Musc &SPEECH COACH Intrp 10 HOSPITAL COURSE: Date of Admission:11/10/19 Date of Discharge: 11/16/19 Discharge Summary Problems reviewed: Yes Reason For Visit: INTRACTABLE VOMITING WITH NAUSEA Condition: Improved - Instructions Referrals: Arnold Chapin MD [Staff Physician] - Ginny Zhang MD [Primary Care Provider] - Disposition: HOME - Home Medications Comprehensive Discharge Medication List: Ambulatory Orders Fluoxetine HCl [Prozac -] 40 mg PO DAILY 03/05/12 Metoprolol Succinate [Toprol Xl] 25 mg PO DAILY 12/27/18 Pantoprazole Sodium [Protonix -] 40 mg PO DAILY #30 tablet.ec 11/15/19 metroNIDAZOLE [Flagyl -] 250 mg PO TID #15 tablet 11/16/19 Problem List - Problems (1) Colitis Code(s): K52.9 - NONINFECTIVE GASTROENTERITIS AND COLITIS, UNSPECIFIED (2) Infectious diarrhea Code(s): A09 - INFECTIOUS GASTROENTERITIS AND COLITIS, UNSPECIFIED (3) Abnormal liver function test Code(s): R94.5 - ABNORMAL RESULTS OF LIVER FUNCTION STUDIES (4) Elevated liver enzymes Code(s): R74.8 - ABNORMAL LEVELS OF OTHER SERUM ENZYMES (5) Intractable nausea and vomiting Code(s): R11.2 - NAUSEA WITH VOMITING, UNSPECIFIED (6) Nausea & vomiting Code(s): R11.2 - NAUSEA WITH VOMITING, UNSPECIFIED (7) Thrombocytopenia Code(s): D69.6 - THROMBOCYTOPENIA, UNSPECIFIED (8) Afib Code(s): I48.91 - UNSPECIFIED ATRIAL FIBRILLATION Qualifiers: Atrial fibrillation type: paroxysmal Qualified Code(s): I48.0 - Paroxysmal atrial fibrillation (9) Prophylactic measure Code(s): Z29.9 - ENCOUNTER FOR PROPHYLACTIC MEASURES, UNSPECIFIED - Discharge Referral Referred to [facility] No
== END 2019-11-16 16:51 | disposition home or self-care (01) | DRG 249 ==
LOC: JER 21:44 → JERBED 11-10 01:46 → EDUNIT# 11-10 01:46 → J4S 11-10 19:08 → J7W 11-12 16:57
PROVIDERS: ADMIT Internal Medicine; ATTEND Nurse Practitioner Family
DX: K52.89 Other specified noninfective gastroenteritis and colitis (principal); I48.91 Unspecified atrial fibrillation; F32.9 Major depressive disorder, single episode, unspecified; K86.1 Other chronic pancreatitis; R00.1 Bradycardia, unspecified; K86.2 Cyst of pancreas; D69.6 Thrombocytopenia, unspecified; R74.0 Nonspecific elevation of levels of transaminase and lactic acid dehydrogenase [LDH]; F12.90 Cannabis use, unspecified, uncomplicated; I48.0 Paroxysmal atrial fibrillation; R94.31 Abnormal electrocardiogram [ECG] [EKG]; F17.210 Nicotine dependence, cigarettes, uncomplicated; R19.7 Diarrhea, unspecified; R94.5 Abnormal results of liver function studies; E86.0 Dehydration; R11.2 Nausea with vomiting, unspecified; R10.11 Right upper quadrant pain; J20.9 Acute bronchitis, unspecified; R74.8 Abnormal levels of other serum enzymes; Z72.89 Other problems related to lifestyle
CPT/HCPCS: 36415; 72050-TC-FY; 74018-TC-FY; 74177-TC; 74181-TC; 76705-TC; 80053; 80307; 81003; 82378; 82550; 83516; 83690; 83735; 84100; 84484; 84703; 85025; 85610; 85730; 86038; 86301; 86304; 86704; 86706; 86707; 86708; 86709; 86803; 86850; 86900; 86901; 87040; 87045; 87046; 87086; 87177; 87209; 87324; 87340; 87449; 87804; 87807; 93005; 93010; 94010; 97116-GP; 97161-GP; 99285-25; J0131; J7030

== ENCOUNTER 2020-08-16 12:10 | Emergency (ER) | payer OTHER ==
[2020-08-16 12:24] VITALS: BP 111/44; PULSE 57; TEMP 98.5; BMI 24.1
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
== END 2020-08-16 14:00 | disposition home or self-care (01) ==
LOC: JERFT 12:10
DX: S89.90XA Unspecified injury of unspecified lower leg, initial encounter (principal)
CPT/HCPCS: 73562-TC-RT-FY; 99284-25

== ENCOUNTER 2020-09-27 11:17 | Inpatient (IN) | payer OTHER ==
[2020-09-27] MEDS ORDERED: FAMOTIDINE 20 MG/50 ML IVPB 20 MG/50 ML MG IVPB ONE ×2 (12:32→12:42)
[2020-09-27] MEDS ORDERED: ONDANSETRON 4 MG/2 ML VIAL IVPUSH ONE (12:32)
[2020-09-27] MEDS ORDERED: ACETAMINOPHEN 1000 MG/100 ML VIAL (NON FORMULARY) IVPB ONE (12:33)
[2020-09-27] MEDS ORDERED: MAG HYDROX/AL HYDROX/SIMETH 30 ML UNIT-DOSE CUP PO ONE (12:33)
[2020-09-27] MEDS ORDERED: MAG HYDROX/AL HYDROX/SIMETH 30 ML UNIT-DOSE CUP ONE (12:41)
[2020-09-27] MEDS ORDERED: ACETAMINOPHEN INJECTION 100 ML IVPB ONE (12:41)
[2020-09-27] MEDS ORDERED: LACTATED RINGERS SOLUTION 1000 ML INFUS.BAG IV ONE ×2 (12:41→19:15)
[2020-09-27] MEDS ORDERED: SODIUM CHLORIDE 0.9% 1000 ML INFUS.BAG IV ONE ×2 (12:45→19:15)
[2020-09-27] MEDS ORDERED: METOCLOPRAMIDE HCL INJECTION 10 MG/2 ML VIAL IVPB ONE (13:06)
[2020-09-27 13:13] LABS: VENOUS BASE EXCESS -0.7 mmol/L (-2-2); VENOUS O2 SATURATION 86.6 % (70-80); VENOUS PCO2 36.1 mmHg (38-52); VENOUS PH 7.426 (7.310-7.410)
[2020-09-27 13:18] LABS: BASO % 0.3 % (0-2.0); HEMATOCRIT 39.9 % (32.4-45.2); HEMOGLOBIN 13.2 GM/dL (10.7-15.3); LYMPH % 9.8 % (8-40); MCH 31.4 pg (25.7-33.7); MCHC 33.2 g/dl (32.0-36.0); MEAN CELL VOLUME 94.5 fl (80-96); MEAN PLT VOLUME 9.9 fl (7.5-11.1); MONO % 2.7 % (3.8-10.2); NEUT % 86.2 % (42.8-82.8); PLATELET COUNT 177 K/MM3 (134-434); RBC 4.22 M/mm3 (3.60-5.2); RDW 13.2 % (11.6-15.6); WHITE BLOOD COUNT 13.1 K/mm3 (4.0-10.0)
[2020-09-27 13:24] LABS: INR 0.96 (0.83-1.09); PROTHROMBIN TIME (PATIENT) 11.8 SEC (9.7-13.0)
[2020-09-27 13:26] LABS: ACTIVATED PTT 32.9 SECONDS (25.2-36.5)
[2020-09-27] MEDS ORDERED: METOCLOPRAMIDE HCL INJECTION 10 MG/2 ML VIAL ONE (13:30)
[2020-09-27 13:47] LABS: CHLORIDE 108 mmol/L (98-107); POTASSIUM 4.4 mmol/L (3.5-5.1); SODIUM 141 mmol/L (136-145)
[2020-09-27 13:50] LABS: ALBUMIN 4.1 g/dl (3.4-5.0); ANION GAP 6 MMOL/L (8-16); BLOOD UREA NITROGEN 16.8 mg/dL (7-18); CALCIUM 9.5 mg/dL (8.5-10.1); CO2 27 mmol/L (21-32); GLUCOSE,RANDOM 108 mg/dL (74-106); LIPASE 99 U/L (73-393)
[2020-09-27 13:53] LABS: CREATININE 0.8 mg/dL (0.55-1.3); SGOT/AST 24 U/L (15-37); SGPT/ALT 65 U/L (13-61)
[2020-09-27 13:55] LABS: BILIRUBIN,TOTAL 0.5 mg/dL (0.2-1); TOT PROT 7.4 g/dl (6.4-8.2)
[2020-09-27 13:56] LABS: ALK PHOS 107 U/L (45-117)
[2020-09-27] MEDS ORDERED: HALOPERIDOL LACTATE 5 MG/ML IV ONE (14:39)
[2020-09-27] MEDS ORDERED: HALOPERIDOL LACTATE 5 MG/ML ONE (15:32)
[2020-09-27] MEDS ORDERED: LORazepam 2 MG/ML SDV VIAL ONE ×2 (15:33→19:58)
[2020-09-27] MEDS ORDERED: CEFTRIAXONE 1,000 MG in DEXTROSE 5%-WATER - 50 ML IVPB ONE (19:13)
[2020-09-27] MEDS ORDERED: CEFTRIAXONE 1 GM/50 ML BAG ONE (19:58)
[2020-09-27] MEDS: SODIUM CHLORIDE 1,000 ML IV SCH (22:07)
[2020-09-28] MEDS: ONDANSETRON 4 MG/2 ML VIAL IVPUSH PRN ×4 (01:25→23:03)
[2020-09-28] MEDS: SODIUM CHLORIDE 1,000 ML IV SCH ×3 (01:25→23:09)
[2020-09-28 02:36] VITALS: BMI 27.2
[2020-09-28 08:26] LABS: BASO % 0.3 % (0-2.0); HEMATOCRIT 33.6 % (32.4-45.2); HEMOGLOBIN 11.1 GM/dL (10.7-15.3); LYMPH % 8.2 % (8-40); MCH 31.2 pg (25.7-33.7); MCHC 33.1 g/dl (32.0-36.0); MEAN CELL VOLUME 94.2 fl (80-96); MEAN PLT VOLUME 10.5 fl (7.5-11.1); MONO % 4.3 % (3.8-10.2); NEUT % 87.2 % (42.8-82.8); PLATELET COUNT 146 K/MM3 (134-434); RBC 3.56 M/mm3 (3.60-5.2); WHITE BLOOD COUNT 14.3 K/mm3 (4.0-10.0)
[2020-09-28 08:53] LABS: CALCIUM 8.2 mg/dL (8.5-10.1)
[2020-09-28 08:54] LABS: ALBUMIN 3.3 g/dl (3.4-5.0)
[2020-09-28 08:57] LABS: CREATININE 0.7 mg/dL (0.55-1.3)
[2020-09-28 08:58] LABS: BILIRUBIN,TOTAL 0.4 mg/dL (0.2-1); TOT PROT 5.9 g/dl (6.4-8.2)
[2020-09-28 09:00] LABS: MAGNESIUM 1.8 mg/dL (1.8-2.4)
[2020-09-28] MEDS: ENOXAPARIN NA (PORCINE) 40 MG/0.4 ML DISP.SYRIN SQ SCH (09:00)
[2020-09-28] MEDS ORDERED: ACETAMINOPHEN 325 MG TABLET (FP) PO PRN (11:31)
[2020-09-28] MEDS ORDERED: PANTOPRAZOLE 40 MG TABLET PO PRN (11:34)
[2020-09-28] MEDS ORDERED: cefTRIAXone SODIUM 1 GM VIAL ONE (12:50)
[2020-09-28] MEDS ORDERED: DEXTROSE 5%-WATER - 50 ML IVPB ONE (12:50)
[2020-09-28] MEDS: CEFTRIAXONE 1 GM in DEXTROSE 5%-WATER - 50 ML IVPB SCH (12:55)
[2020-09-28] MEDS: FLUoxetine HCL 20 MG CAPSULE PO SCH (14:41)
[2020-09-28] MEDS: LORazepam 2 MG/ML SDV VIAL IVPUSH PRN (17:39)
[2020-09-29] MEDS: LORazepam 2 MG/ML SDV VIAL IVPUSH PRN ×2 (00:09→10:18)
[2020-09-29] MEDS: ONDANSETRON 4 MG/2 ML VIAL IVPUSH PRN ×3 (04:44→17:14)
[2020-09-29 07:48] LABS: BASO % 0.1 % (0-2.0); HEMOGLOBIN 11.8 GM/dL (10.7-15.3); LYMPH % 9.4 % (8-40); MCH 31.1 pg (25.7-33.7); MCHC 32.6 g/dl (32.0-36.0); MEAN CELL VOLUME 95.2 fl (80-96); MEAN PLT VOLUME 10.5 fl (7.5-11.1); MONO % 6.2 % (3.8-10.2); NEUT % 84.3 % (42.8-82.8); PLATELET COUNT 161 K/MM3 (134-434); RBC 3.79 M/mm3 (3.60-5.2); RDW 12.9 % (11.6-15.6); WHITE BLOOD COUNT 14.2 K/mm3 (4.0-10.0)
[2020-09-29 08:59] LABS: CALCIUM 8.4 mg/dL (8.5-10.1)
[2020-09-29 09:00] LABS: ALBUMIN 3.6 g/dl (3.4-5.0); BLOOD UREA NITROGEN 15.3 mg/dL (7-18); MAGNESIUM 1.8 mg/dL (1.8-2.4)
[2020-09-29 09:03] LABS: CREATININE 0.9 mg/dL (0.55-1.3)
[2020-09-29 09:04] LABS: BILIRUBIN,TOTAL 0.5 mg/dL (0.2-1); TOT PROT 6.1 g/dl (6.4-8.2)
[2020-09-29] MEDS ORDERED: DEXTROSE 5%-WATER - 50 ML IVPB ONE (09:49)
[2020-09-29] MEDS ORDERED: cefTRIAXone SODIUM 1 GM VIAL ONE (09:49)
[2020-09-29] MEDS ORDERED: PT OWN MED DRAWER 7, Y5N ONE (09:49)
[2020-09-29] MEDS: CEFTRIAXONE 1 GM in DEXTROSE 5%-WATER - 50 ML IVPB SCH (09:50)
[2020-09-29] MEDS: ENOXAPARIN NA (PORCINE) 40 MG/0.4 ML DISP.SYRIN SQ SCH ×2 (09:51→10:00)
[2020-09-29] MEDS: PANTOPRAZOLE 40 MG TABLET PO SCH (09:51)
[2020-09-29] MEDS: FLUoxetine HCL 20 MG CAPSULE PO SCH (09:51)
[2020-09-29] MEDS: ONDANSETRON 4 MG/2 ML VIAL IVPUSH SCH ×2 (17:56→22:45)
[2020-09-29] MEDS: AMINO ACIDS 4.25%/D5W 1,000 ML IV SCH (18:37)
[2020-09-30] MEDS: ONDANSETRON 4 MG/2 ML VIAL IVPUSH SCH ×3 (05:54→17:11)
[2020-09-30] MEDS: AMINO ACIDS 4.25%/D5W 1,000 ML IV SCH ×2 (06:26→17:54)
[2020-09-30 08:44] LABS: BASO % 0.4 % (0-2.0); EOS % 0.7 % (0-4.5); HEMOGLOBIN 11.2 GM/dL (10.7-15.3); LYMPH % 18.8 % (8-40); MCH 31.2 pg (25.7-33.7); MCHC 32.9 g/dl (32.0-36.0); MEAN PLT VOLUME 10.4 fl (7.5-11.1); MONO % 9.2 % (3.8-10.2); NEUT % 70.9 % (42.8-82.8); PLATELET COUNT 134 K/MM3 (134-434); RBC 3.58 M/mm3 (3.60-5.2); RDW 12.9 % (11.6-15.6); WHITE BLOOD COUNT 9.4 K/mm3 (4.0-10.0)
[2020-09-30 09:04] LABS: POTASSIUM 4.3 mmol/L (3.5-5.1)
[2020-09-30 09:08] LABS: CALCIUM 8.3 mg/dL (8.5-10.1)
[2020-09-30 09:09] LABS: ALBUMIN 3.4 g/dl (3.4-5.0); BLOOD UREA NITROGEN 15.9 mg/dL (7-18); MAGNESIUM 1.8 mg/dL (1.8-2.4)
[2020-09-30 09:12] LABS: CREATININE 0.7 mg/dL (0.55-1.3)
[2020-09-30 09:14] LABS: BILIRUBIN,TOTAL 0.9 mg/dL (0.2-1); TOT PROT 5.7 g/dl (6.4-8.2)
[2020-09-30] MEDS ORDERED: DEXTROSE 5%-WATER - 50 ML IVPB ONE (10:04)
[2020-09-30] MEDS ORDERED: cefTRIAXone SODIUM 1 GM VIAL ONE (10:04)
[2020-09-30] MEDS: ENOXAPARIN NA (PORCINE) 40 MG/0.4 ML DISP.SYRIN SQ SCH ×2 (10:22→10:45)
[2020-09-30] MEDS: FLUoxetine HCL 20 MG CAPSULE PO SCH (10:23)
[2020-09-30] MEDS: CEFTRIAXONE 1 GM in DEXTROSE 5%-WATER - 50 ML IVPB SCH ×2 (10:23→11:42)
[2020-09-30] MEDS: PANTOPRAZOLE 40 MG TABLET PO SCH (10:23)
[2020-10-01] MEDS: ONDANSETRON 4 MG/2 ML VIAL IVPUSH SCH ×3 (01:27→12:24)
[2020-10-01 08:58] LABS: BASO % 0.4 % (0-2.0); EOS % 1.6 % (0-4.5); HEMATOCRIT 33.4 % (32.4-45.2); HEMOGLOBIN 11.2 GM/dL (10.7-15.3); LYMPH % 24.4 % (8-40); MCH 31.8 pg (25.7-33.7); MCHC 33.6 g/dl (32.0-36.0); MEAN CELL VOLUME 94.5 fl (80-96); MEAN PLT VOLUME 9.9 fl (7.5-11.1); MONO % 10.1 % (3.8-10.2); NEUT % 63.5 % (42.8-82.8); PLATELET COUNT 134 K/MM3 (134-434); RBC 3.53 M/mm3 (3.60-5.2); WHITE BLOOD COUNT 6.8 K/mm3 (4.0-10.0)
[2020-10-01 09:13] LABS: POTASSIUM 3.8 mmol/L (3.5-5.1)
[2020-10-01 09:16] LABS: ALBUMIN 3.4 g/dl (3.4-5.0); CALCIUM 8.3 mg/dL (8.5-10.1)
[2020-10-01 09:17] LABS: BLOOD UREA NITROGEN 13.5 mg/dL (7-18); MAGNESIUM 2.1 mg/dL (1.8-2.4)
[2020-10-01 09:20] LABS: CREATININE 0.7 mg/dL (0.55-1.3)
[2020-10-01 09:21] LABS: BILIRUBIN,TOTAL 0.6 mg/dL (0.2-1)
[2020-10-01 09:23] LABS: TOT PROT 5.9 g/dl (6.4-8.2)
[2020-10-01] MEDS ORDERED: cefTRIAXone SODIUM 1 GM VIAL ONE (10:23)
[2020-10-01] MEDS ORDERED: DEXTROSE 5%-WATER - 50 ML IVPB ONE (10:23)
[2020-10-01] MEDS: FLUoxetine HCL 20 MG CAPSULE PO SCH (10:46)
[2020-10-01] MEDS: ENOXAPARIN NA (PORCINE) 40 MG/0.4 ML DISP.SYRIN SQ SCH (10:46)
[2020-10-01] MEDS: PANTOPRAZOLE 40 MG TABLET PO SCH (10:46)
[2020-10-01] MEDS: CEFTRIAXONE 1 GM in DEXTROSE 5%-WATER - 50 ML IVPB SCH (12:22)
[2020-10-01 15:32] VITALS: BP 112/54; PULSE 65; TEMP 98.4
== END 2020-10-01 15:37 | disposition home or self-care (01) | DRG 249 ==
LOC: JER 11:17 → JERBED 19:14 → J5S 09-28 00:51
PROVIDERS: ADMIT Hospitalist; ATTEND Nurse Practitioner Family
DX: K52.9 Noninfective gastroenteritis and colitis, unspecified (principal); I48.0 Paroxysmal atrial fibrillation; R11.2 Nausea with vomiting, unspecified; D72.829 Elevated white blood cell count, unspecified; K86.9 Disease of pancreas, unspecified; F32.9 Major depressive disorder, single episode, unspecified; R63.4 Abnormal weight loss; Z68.27 Body mass index [BMI] 27.0-27.9, adult; F17.210 Nicotine dependence, cigarettes, uncomplicated; R00.1 Bradycardia, unspecified
CPT/HCPCS: 36415; 71045-TC-FY; 74177-TC; 74181-TC; 80053; 82378; 82550; 82803; 82962; 83605; 83690; 83735; 84100; 84484; 84703; 85025; 85610; 85730; 86301; 86304; 87040; 87086; 93005; 93010; 94010; 99285-25; C9803; J0131; Q9967; U0003

== ENCOUNTER 2021-04-20 19:25 | Emergency (ER) | payer OTHER ==
[2021-04-20 19:40] VITALS: BP 133/84; PULSE 87; TEMP 98.9; BMI 24.5
[2021-04-20] MEDS ORDERED: KETOROLAC TROMETHAMINE 30 MG/1 ML VIAL ONE (20:52)
[2021-04-20] MEDS ORDERED: KETOROLAC TROMETHAMINE 30 MG/1 ML VIAL IM ONE (21:06)
== END 2021-04-20 21:12 | disposition home or self-care (01) ==
LOC: FER 19:25
PROC: 3E0233Z Introduction of Anti-inflammatory into Muscle, Percutaneous Approach (ICD-10-PCS; principal; 2021-04-20)
DX: M54.5 Low back pain (principal)
CPT/HCPCS: 72100-TC-FY; 99284-25

== ENCOUNTER 2021-05-24 02:51 | Observation (INO) | payer OTHER ==
[2021-05-24] MEDS ORDERED: metoPROLOL SUCCINATE 25 MG TAB.SR.24H (FP) PO ONE (03:21)
[2021-05-24] MEDS ORDERED: metoPROLOL SUCCINATE 25 MG TAB.SR.24H (FP) ONE (03:33)
[2021-05-24] MEDS ORDERED: SODIUM CHLORIDE 0.9% 500 ML INFUS.BAG IV ONE (03:43)
[2021-05-24 03:52] LABS: BASO % 0.3 % (0-2.0); EOS % 1.8 % (0-4.5); HEMATOCRIT 37.9 % (32.4-45.2); HEMOGLOBIN 12.8 GM/dL (10.7-15.3); LYMPH % 23.6 % (8-40); MCH 31.3 pg (25.7-33.7); MCHC 33.8 g/dl (32.0-36.0); MEAN CELL VOLUME 92.6 fl (80-96); MEAN PLT VOLUME 9.4 fl (7.5-11.1); MONO % 7.1 % (3.8-10.2); NEUT % 67.2 % (42.8-82.8); PLATELET COUNT 170 10^3/uL (134-434); RBC 4.09 M/mm3 (3.60-5.2); RDW 13.3 % (11.6-15.6); WHITE BLOOD COUNT 8.6 K/mm3 (4.0-10.0)
[2021-05-24 03:59] LABS: INR 1.06 (0.83-1.09)
[2021-05-24 04:01] LABS: ACTIVATED PTT 28.2 SECONDS (25.2-36.5)
[2021-05-24 04:17] LABS: CHLORIDE 109 mmol/L (98-107); SODIUM 141 mmol/L (136-145)
[2021-05-24 04:19] LABS: CALCIUM 8.3 mg/dL (8.5-10.1)
[2021-05-24 04:20] LABS: ALBUMIN 3.5 g/dl (3.4-5.0); ANION GAP 5 MMOL/L (8-16); BLOOD UREA NITROGEN 15.2 mg/dL (7-18); CO2 27 mmol/L (21-32); GLUCOSE,RANDOM 97 mg/dL (74-106)
[2021-05-24 04:23] LABS: CREATININE 0.8 mg/dL (0.55-1.3); SGOT/AST 20 U/L (15-37); SGPT/ALT 28 U/L (13-61)
[2021-05-24 04:25] LABS: BILIRUBIN,TOTAL 0.2 mg/dL (0.2-1)
[2021-05-24 04:26] LABS: ALK PHOS 71 U/L (45-117)
[2021-05-24 12:15] VITALS: BMI 27.1
[2021-05-24] MEDS: metoPROLOL SUCCINATE 25 MG TAB.SR.24H (FP) PO SCH ×2 (16:59→22:34)
[2021-05-25] MEDS ORDERED: PANTOPRAZOLE 40 MG TABLET PO SCH (10:00)
[2021-05-25] MEDS ORDERED: predniSONE 10 MG TABLET (UD) PO SCH (10:00)
[2021-05-25] MEDS ORDERED: FLUoxetine HCL 20 MG CAPSULE PO SCH (10:00)
[2021-05-25] MEDS ORDERED: ENOXAPARIN NA (PORCINE) 40 MG/0.4 ML DISP.SYRIN SQ SCH (10:00)
[2021-05-25 10:15] LABS: BASO % 0.4 % (0-2.0); EOS % 2.8 % (0-4.5); HEMATOCRIT 44.7 % (32.4-45.2); HEMOGLOBIN 14.5 GM/dL (10.7-15.3); LYMPH % 27.2 % (8-40); MCH 30.4 pg (25.7-33.7); MCHC 32.5 g/dl (32.0-36.0); MEAN CELL VOLUME 93.6 fl (80-96); MEAN PLT VOLUME 9.1 fl (7.5-11.1); MONO % 6.8 % (3.8-10.2); NEUT % 62.8 % (42.8-82.8); PLATELET COUNT 181 10^3/uL (134-434); RBC 4.77 M/mm3 (3.60-5.2); RDW 13.2 % (11.6-15.6); WHITE BLOOD COUNT 6.6 K/mm3 (4.0-10.0)
[2021-05-25] MEDS: metoPROLOL SUCCINATE 25 MG TAB.SR.24H (FP) PO SCH (10:40)
[2021-05-25 10:41] LABS: ALBUMIN 3.4 g/dl (3.4-5.0); CALCIUM 8.8 mg/dL (8.5-10.1)
[2021-05-25 10:42] LABS: BLOOD UREA NITROGEN 9.7 mg/dL (7-18)
[2021-05-25 10:45] LABS: CREATININE 0.9 mg/dL (0.55-1.3)
[2021-05-25 10:46] LABS: BILIRUBIN,TOTAL 0.6 mg/dL (0.2-1); TOT PROT 6.1 g/dl (6.4-8.2)
[2021-05-25 11:07] VITALS: BP 122/90; PULSE 100; TEMP 98
== END 2021-05-25 13:15 | disposition home or self-care (01) ==
LOC: JER 02:51 → INTOOBSV 06:48 → JERBED 06:48 → UNDOADMOB 06:48 → JERBED 10:42 → J4W 10:42
PROVIDERS: ADMIT Internal Medicine; ATTEND Nurse Practitioner Family
PROC: 3E0337Z Introduction of Electrolytic and Water Balance Substance into Peripheral Vein, Percutaneous Approach (ICD-10-PCS; principal; 2021-05-25)
DX: I48.0 Paroxysmal atrial fibrillation (principal); R07.9 Chest pain, unspecified; Z88.8 Allergy status to other drugs, medicaments and biological substances; Z88.0 Allergy status to penicillin; Z88.6 Allergy status to analgesic agent; F41.8 Other specified anxiety disorders; M54.5 Low back pain; G89.29 Other chronic pain; F12.10 Cannabis abuse, uncomplicated; R00.0 Tachycardia, unspecified; K52.9 Noninfective gastroenteritis and colitis, unspecified; F17.210 Nicotine dependence, cigarettes, uncomplicated; K21.9 Gastro-esophageal reflux disease without esophagitis
CPT/HCPCS: 36415; 70450-TC; 71045-TC-FY; 80053; 82550; 83735; 84443; 84484; 85025; 85610; 85730; 93005; 93010; 96360; 99285-25; C9803; G0378; U0003; U0005

== ENCOUNTER 2021-07-04 17:39 | Inpatient (IN) | payer OTHER ==
[2021-07-04] MEDS ORDERED: SODIUM CHLORIDE 1,973 ML IV ONE (18:35)
[2021-07-04] MEDS ORDERED: ONDANSETRON 4 MG/2 ML VIAL IVPUSH ONE (18:39)
[2021-07-04] MEDS ORDERED: ACETAMINOPHEN 1000 MG/100 ML VIAL (NON FORMULARY) IVPB ONE (18:39)
[2021-07-04] MEDS ORDERED: ONDANSETRON 4 MG/2 ML VIAL ONE (18:59)
[2021-07-04] MEDS ORDERED: ACETAMINOPHEN INJECTION 100 ML IVPB ONE (18:59)
[2021-07-04 19:42] LABS: EPI CELLS 3 /uL (0-25.1); HYALINE CASTS 1 /uL (0-3.1); PH,URINE 6.5 (5.0-8.0); URINE APPEARANCE CLOUDY; URINE BACTERIA 7545 /uL (0-1359); URINE BILIRUBIN NEGATIVE (NEGATIVE); URINE COLOR YELLOW; URINE GLUCOSE (UA) NEGATIVE (NEGATIVE); URINE KETONE NEGATIVE (NEGATIVE); URINE LEUK ESTERASE 2+ (NEGATIVE); URINE NITRITE POSITIVE (NEGATIVE); URINE PROTEIN 1+ (NEGATIVE); URINE RBC 28 /uL (0-23.9); URINE WBC 1268 /uL (0-25.8)
[2021-07-04 20:00] LABS: BASO % 0.1 % (0-2.0); HEMATOCRIT 39.7 % (32.4-45.2); HEMOGLOBIN 13.3 GM/dL (10.7-15.3); LYMPH % 7.7 % (8-40); MCH 30.8 pg (25.7-33.7); MCHC 33.6 g/dl (32.0-36.0); MEAN CELL VOLUME 91.8 fl (80-96); MEAN PLT VOLUME 9.2 fl (7.5-11.1); MONO % 7.7 % (3.8-10.2); NEUT % 84.5 % (42.8-82.8); PLATELET COUNT 229 10^3/uL (134-434); RBC 4.33 M/mm3 (3.60-5.2); RDW 13.1 % (11.6-15.6); WHITE BLOOD COUNT 12.6 K/mm3 (4.0-10.0)
[2021-07-04 20:01] LABS: INR 1.2 (0.83-1.09); PROTHROMBIN TIME (PATIENT) 14.4 SEC (9.7-13.0)
[2021-07-04 20:04] LABS: ACTIVATED PTT 31.5 SECONDS (25.2-36.5)
[2021-07-04 20:10] LABS: CHLORIDE 100 mmol/L (98-107); SODIUM 134 mmol/L (136-145)
[2021-07-04 20:12] LABS: CALCIUM 8.8 mg/dL (8.5-10.1)
[2021-07-04 20:13] LABS: ALBUMIN 3.7 g/dl (3.4-5.0); ANION GAP 8 MMOL/L (8-16); BLOOD UREA NITROGEN 11.2 mg/dL (7-18); CO2 26 mmol/L (21-32); GLUCOSE,RANDOM 89 mg/dL (74-106)
[2021-07-04 20:16] LABS: CREATININE 0.8 mg/dL (0.55-1.3); SGOT/AST 15 U/L (15-37); SGPT/ALT 30 U/L (13-61)
[2021-07-04 20:17] LABS: BILIRUBIN,TOTAL 0.5 mg/dL (0.2-1)
[2021-07-04 20:18] LABS: TOT PROT 7.4 g/dl (6.4-8.2)
[2021-07-04 20:19] LABS: ALK PHOS 157 U/L (45-117)
[2021-07-04] MEDS ORDERED: CEFTRIAXONE 1 GM in DEXTROSE 5%-WATER - 100 ML IVPB ONE (21:25)
[2021-07-04] MEDS ORDERED: CEFTRIAXONE 1 GM/50 ML BAG ONE (21:34)
[2021-07-05] MEDS: SODIUM CHLORIDE 1,000 ML IV SCH (03:45)
[2021-07-05 04:15] VITALS: BMI 25.1
[2021-07-05] MEDS ORDERED: KETOROLAC TROMETHAMINE 30 MG/1 ML VIAL IVPUSH ONE (04:28)
[2021-07-05] MEDS: ONDANSETRON 4 MG/2 ML VIAL IVPUSH PRN ×2 (05:03→13:59)
[2021-07-05 05:44] LABS: EPI CELLS 13 /uL (0-25.1); HYALINE CASTS 9 /uL (0-3.1); URINE APPEARANCE CLEAR; URINE BACTERIA 41 /uL (0-1359); URINE BILIRUBIN NEGATIVE (NEGATIVE); URINE COLOR YELLOW; URINE GLUCOSE (UA) NEGATIVE (NEGATIVE); URINE KETONE TRACE (NEGATIVE); URINE LEUK ESTERASE 1+ (NEGATIVE); URINE NITRITE NEGATIVE (NEGATIVE); URINE PROTEIN TRACE (NEGATIVE); URINE RBC 53 /uL (0-23.9); URINE WBC 258 /uL (0-25.8)
[2021-07-05 09:31] LABS: BASO % 0.2 % (0-2.0); HEMOGLOBIN 12.9 GM/dL (10.7-15.3); LYMPH % 13.5 % (8-40); MCH 31.6 pg (25.7-33.7); MCHC 34.1 g/dl (32.0-36.0); MEAN CELL VOLUME 92.8 fl (80-96); MEAN PLT VOLUME 9.2 fl (7.5-11.1); NEUT % 78.3 % (42.8-82.8); PLATELET COUNT 199 10^3/uL (134-434); RBC 4.09 M/mm3 (3.60-5.2); RDW 13.2 % (11.6-15.6); WHITE BLOOD COUNT 9.8 K/mm3 (4.0-10.0)
[2021-07-05 10:06] LABS: CALCIUM 8.3 mg/dL (8.5-10.1)
[2021-07-05 10:07] LABS: MAGNESIUM 2.2 mg/dL (1.8-2.4)
[2021-07-05 10:10] LABS: CREATININE 0.6 mg/dL (0.55-1.3)
[2021-07-05 10:11] LABS: BILIRUBIN,TOTAL 0.3 mg/dL (0.2-1); PHOSPHOROUS 2.5 mg/dL (2.5-4.9)
[2021-07-05 10:12] LABS: TOT PROT 5.6 g/dl (6.4-8.2)
[2021-07-05 10:16] LABS: ALBUMIN 2.8 g/dl (3.4-5.0)
[2021-07-05] MEDS ORDERED: PT OWN MED DRAWER 7, Y5N ONE ×2 (10:29→17:52)
[2021-07-05] MEDS: ENOXAPARIN NA (PORCINE) 40 MG/0.4 ML DISP.SYRIN SQ SCH (10:32)
[2021-07-05] MEDS: metoPROLOL SUCCINATE 25 MG TAB.SR.24H (FP) PO SCH ×2 (10:41→21:51)
[2021-07-05] MEDS: FLUoxetine HCL 20 MG CAPSULE PO SCH (10:41)
[2021-07-05] MEDS ORDERED: KETOROLAC TROMETHAMINE 15 MG/ML VIAL IVPUSH ONE (13:00)
[2021-07-05] MEDS ORDERED: CEFTRIAXONE 1 GM in DEXTROSE 5%-WATER - 50 ML IVPB SCH (13:00)
[2021-07-05] MEDS ORDERED: PIPERACILLIN/TAZOB 3.375 GM 3.375 GM in DEXTROSE 5%-WATER - 50 ML IVPB SCH (13:15)
[2021-07-05] MEDS ORDERED: MEROPENEM 1 GM VIAL (RESTRICTED TO ID) IVPB ONE ×2 (14:55→17:52)
[2021-07-05] MEDS ORDERED: DEXTROSE 5%-WATER 100 ML IVPB ONE ×2 (14:56→17:52)
[2021-07-05] MEDS: MEROPENEM 1 GM in DEXTROSE 5%-WATER 100 ML IVPB SCH ×2 (15:10→17:55)
[2021-07-05] MEDS ORDERED: ACETAMINOPHEN 1000 MG/100 ML VIAL (NON FORMULARY) IVPB PRN (19:04)
[2021-07-05] MEDS ORDERED: ALPRAZolam 0.25 MG TABLET PO PRN (19:42)
[2021-07-05] MEDS ORDERED: diazePAM 2 MG TABLET PO ONE (20:28)
[2021-07-06] MEDS ORDERED: MEROPENEM 1 GM VIAL (RESTRICTED TO ID) IVPB ONE ×2 (01:14→10:25)
[2021-07-06] MEDS ORDERED: DEXTROSE 5%-WATER 100 ML IVPB ONE ×2 (01:14→10:26)
[2021-07-06] MEDS: MEROPENEM 1 GM in DEXTROSE 5%-WATER 100 ML IVPB SCH ×2 (01:21→11:34)
[2021-07-06] MEDS: SODIUM CHLORIDE 1,000 ML IV SCH ×2 (06:07→06:19)
[2021-07-06] MEDS ORDERED: PT OWN MED DRAWER 7, Y5N ONE (10:26)
[2021-07-06 10:33] LABS: BASO % 0.3 % (0-2.0); EOS % 0.5 % (0-4.5); HEMATOCRIT 35.5 % (32.4-45.2); HEMOGLOBIN 11.9 GM/dL (10.7-15.3); LYMPH % 16.2 % (8-40); MCH 31.4 pg (25.7-33.7); MCHC 33.7 g/dl (32.0-36.0); MEAN CELL VOLUME 93.3 fl (80-96); MEAN PLT VOLUME 9.1 fl (7.5-11.1); MONO % 9.3 % (3.8-10.2); NEUT % 73.7 % (42.8-82.8); PLATELET COUNT 180 10^3/uL (134-434); RDW 13.2 % (11.6-15.6); WHITE BLOOD COUNT 6.8 K/mm3 (4.0-10.0)
[2021-07-06] MEDS ORDERED: ACETAMINOPHEN 325 MG TABLET (FP) ONE (10:52)
[2021-07-06] MEDS ORDERED: ACETAMINOPHEN 325 MG TABLET (FP) PO PRN ×2 (11:02→11:03)
[2021-07-06 11:09] LABS: CALCIUM 8.2 mg/dL (8.5-10.1)
[2021-07-06 11:13] LABS: CREATININE 0.6 mg/dL (0.55-1.3)
[2021-07-06] MEDS: ENOXAPARIN NA (PORCINE) 40 MG/0.4 ML DISP.SYRIN SQ SCH (11:33)
[2021-07-06] MEDS: metoPROLOL SUCCINATE 25 MG TAB.SR.24H (FP) PO SCH ×2 (11:34→22:50)
[2021-07-06] MEDS: FLUoxetine HCL 20 MG CAPSULE PO SCH (11:34)
[2021-07-06] MEDS ORDERED: CEFAZOLIN 1 GM/D5W 1 GM/50 ML BAG IVPB SCH (14:45)
[2021-07-06] MEDS ORDERED: KETOROLAC TROMETHAMINE 10 MG TABLET PO PRN (14:47)
[2021-07-06] MEDS ORDERED: diazePAM 2 MG TABLET PO PRN (14:49)
[2021-07-06] MEDS ORDERED: KETOROLAC TROMETHAMINE 15 MG/ML VIAL IVPUSH PRN (15:25)
[2021-07-06] MEDS ORDERED: CEFAZOLIN 2 GM in DEXTROSE 5%-WATER 100 ML IVPB SCH (16:00)
[2021-07-06] MEDS: CEFAZOLIN 2 GM in DEXTROSE 5%-WATER - 100 ML IVPB SCH (17:51)
[2021-07-06] MEDS: NICOTINE 14 MG/24 HOURS TOPICAL PATCH TD SCH (18:11)
[2021-07-06] MEDS: POLYETHYLENE GLYCOL (HEALTHYLAX) 3350 17 GM PACKET PO SCH (18:53)
[2021-07-06] MEDS: ONDANSETRON 4 MG/2 ML VIAL IVPUSH PRN (19:18)
[2021-07-07] MEDS: CEFAZOLIN 2 GM in DEXTROSE 5%-WATER - 100 ML IVPB SCH ×2 (01:05→09:46)
[2021-07-07] MEDS: SODIUM CHLORIDE 1,000 ML IV SCH (07:30)
[2021-07-07 09:48] VITALS: BP 128/66; PULSE 64; TEMP 98
[2021-07-07] MEDS: POLYETHYLENE GLYCOL (HEALTHYLAX) 3350 17 GM PACKET PO SCH (09:49)
[2021-07-07] MEDS: metoPROLOL SUCCINATE 25 MG TAB.SR.24H (FP) PO SCH (09:49)
[2021-07-07] MEDS: NICOTINE 14 MG/24 HOURS TOPICAL PATCH TD SCH (09:50)
[2021-07-07] MEDS: ENOXAPARIN NA (PORCINE) 40 MG/0.4 ML DISP.SYRIN SQ SCH (09:50)
[2021-07-07] MEDS: FLUoxetine HCL 20 MG CAPSULE PO SCH (09:50)
[2021-07-07] MEDS ORDERED: PANTOPRAZOLE 40 MG TABLET PO SCH (10:00)
[2021-07-07] MEDS: ONDANSETRON 4 MG/2 ML VIAL IVPUSH PRN (10:07)
[2021-07-07 10:25] LABS: BASO % 0.4 % (0-2.0); EOS % 0.5 % (0-4.5); HEMATOCRIT 37.4 % (32.4-45.2); HEMOGLOBIN 12.5 GM/dL (10.7-15.3); MCH 31.3 pg (25.7-33.7); MCHC 33.6 g/dl (32.0-36.0); MEAN CELL VOLUME 93.1 fl (80-96); MEAN PLT VOLUME 8.9 fl (7.5-11.1); MONO % 6.8 % (3.8-10.2); NEUT % 68.3 % (42.8-82.8); PLATELET COUNT 215 10^3/uL (134-434); RBC 4.01 M/mm3 (3.60-5.2); RDW 13.3 % (11.6-15.6); WHITE BLOOD COUNT 6.4 K/mm3 (4.0-10.0)
[2021-07-07 11:05] LABS: CALCIUM 8.9 mg/dL (8.5-10.1)
[2021-07-07 11:06] LABS: ALBUMIN 3.3 g/dl (3.4-5.0); BLOOD UREA NITROGEN 9.2 mg/dL (7-18); MAGNESIUM 2.2 mg/dL (1.8-2.4)
[2021-07-07 11:08] LABS: PHOSPHOROUS 3.2 mg/dL (2.5-4.9)
[2021-07-07 11:09] LABS: CREATININE 0.7 mg/dL (0.55-1.3)
[2021-07-07 11:10] LABS: BILIRUBIN,TOTAL 0.3 mg/dL (0.2-1); TOT PROT 6.4 g/dl (6.4-8.2)
== END 2021-07-07 15:41 | disposition home or self-care (01) | DRG 463 ==
LOC: JER 17:39 → JERBED 23:49 → J5S 07-05 03:51
PROVIDERS: ADMIT Internal Medicine; ATTEND Internal Medicine
DX: N10 Acute pyelonephritis (principal); A09 Infectious gastroenteritis and colitis, unspecified; F12.90 Cannabis use, unspecified, uncomplicated; F17.210 Nicotine dependence, cigarettes, uncomplicated; R31.9 Hematuria, unspecified; I48.91 Unspecified atrial fibrillation; K86.2 Cyst of pancreas; E28.2 Polycystic ovarian syndrome; F41.8 Other specified anxiety disorders; B96.20 Unspecified Escherichia coli [E. coli] as the cause of diseases classified elsewhere; Z88.0 Allergy status to penicillin
CPT/HCPCS: 36415; 74177-TC; 80048; 80053; 81003; 83605; 83735; 84100; 84484; 84703; 85025; 85610; 85730; 87040; 87086; 87186; 93005; 93010; 97116-GP; 97161-GP; 99285-25; C9803; J0131; Q9967; U0003; U0005

== ENCOUNTER 2021-10-03 09:00 | Emergency (ER) | payer OTHER ==
[2021-10-03 09:35] VITALS: BP 103/60; PULSE 75; TEMP 98.2; BMI 23.6
[2021-10-03] MEDS ORDERED: FLUCONAZOLE 150 MG TABLET PO ONE ×2 (09:38→09:41)
[2021-10-03] MEDS ORDERED: CEFTRIAXONE 1,000 MG in DEXTROSE 5%-WATER - 50 ML IVPB ONE (10:20)
[2021-10-03 10:46] LABS: EPITHELIAL CELLS MODERATE /hpf
[2021-10-03] MEDS ORDERED: cefTRIAXone SODIUM 1 GM VIAL ONE (10:51)
== END 2021-10-03 11:19 | disposition home or self-care (01) ==
LOC: FER 09:00
DX: N12 Tubulo-interstitial nephritis, not specified as acute or chronic (principal)
CPT/HCPCS: 81003; 81015; 87086; 99284-25

== ENCOUNTER 2022-07-01 20:14 | Emergency (ER) | payer OTHER ==
[2022-07-01 20:28] VITALS: BP 104/68; PULSE 72; RESP 16; TEMP 97.9; BMI 22.6
[2022-07-01 21:47] LABS: ALBUMIN 3.7 g/dl (3.4-5.0); BILIRUBIN,TOTAL 0.6 mg/dl (0.2-1); CALCIUM 9.2 mg/dl (8.5-10); CREATININE 0.6 mg/dl (0.55-1.3); TOT PROT 6.2 g/dl (6.4-8.2)
[2022-07-02 12:58] LABS: HIV INTERPRETATION NEGATIVE (NEGATIVE)
== END 2022-07-01 22:05 | disposition home or self-care (01) ==
LOC: FER 20:14
DX: R79.9 Abnormal finding of blood chemistry, unspecified (principal)
CPT/HCPCS: 36415; 80053; 87350; 87380; 87389; 87517; 87522; 93005; 93010; 99284-25

== ENCOUNTER 2022-07-07 08:48 | Emergency (ER) | payer OTHER ==
[2022-07-07 09:01] VITALS: BP 126/84; PULSE 81; RESP 20; TEMP 98.9; BMI 22.6
== END 2022-07-07 10:25 | disposition home or self-care (01) ==
LOC: FER 08:48
DX: S90.31XA Contusion of right foot, initial encounter (principal); S90.32XA Contusion of left foot, initial encounter; W22.09XA Striking against other stationary object, initial encounter
CPT/HCPCS: 73610-TC-LT-FY; 73610-TC-RT-FY; 73630-TC-LT; 73630-TC-RT-FY; 99284-25

== ENCOUNTER 2022-12-07 20:33 | Emergency (ER) | payer OTHER ==
[2022-12-07 20:42] VITALS: BP 137/88; PULSE 80; RESP 18; TEMP 98.9; BMI 21.5
== END 2022-12-07 21:15 | disposition home or self-care (01) ==
LOC: FER 20:33
DX: J40 Bronchitis, not specified as acute or chronic (principal)
CPT/HCPCS: 99283-25

== ENCOUNTER 2024-04-04 14:15 | Inpatient (IN) | payer OTHER ==
[2024-04-04] MEDS ORDERED: LIDOCAINE VISCOUS 2% ORAL/TOP 15 ML UNIT-DOSE CUP ONE (15:45)
[2024-04-04] MEDS ORDERED: METOCLOPRAMIDE HCL INJECTION 10 MG/2 ML VIAL ONE (15:45)
[2024-04-04] MEDS ORDERED: FAMOTIDINE 20 MG/50 ML IVPB 20 MG/50 ML MG IVPB ONE (15:46)
[2024-04-04] MEDS ORDERED: MAG HYDROX/AL HYDROX/SIMETH 30 ML UNIT-DOSE CUP ONE (15:46)
[2024-04-04] MEDS: FAMOTIDINE 20 MG/50 ML IVPB 20 MG/50 ML MG IVPB ONE (16:00)
[2024-04-04] MEDS: SODIUM CHLORIDE 0.9% 500 ML INFUS.BAG IV ONE (16:00)
[2024-04-04] MEDS: MAG HYDROX/AL HYDROX/SIMETH 30 ML UNIT-DOSE CUP PO ONE (16:00)
[2024-04-04] MEDS: LIDOCAINE VISCOUS 2% ORAL/TOP 15 ML UNIT-DOSE CUP MM ONE (16:01)
[2024-04-04] MEDS: METOCLOPRAMIDE HCL INJECTION 10 MG/2 ML VIAL IVPB ONE (16:01)
[2024-04-04 16:03] LABS: BASO % 1.1 % (0-2.0); HEMATOCRIT 39.4 % (32.4-45.2); HEMOGLOBIN 13.3 GM/dL (10.7-15.3); LYMPH % 30.2 % (8-40); MCH 31.7 pg (25.7-33.7); MCHC 33.9 g/dl (32.0-36.0); MEAN CELL VOLUME 93.6 fl (80-96); MEAN PLT VOLUME 8.2 fl (7.5-11.1); MONO % 7.3 % (3.8-10.2); NEUT % 58.4 % (42.8-82.8); PLATELET COUNT 230 10^3/uL (134-434); RBC 4.21 M/mm3 (3.60-5.2); RDW 12.9 % (11.6-15.6); WHITE BLOOD COUNT 9.8 K/mm3 (4.0-10.0)
[2024-04-04 16:25] LABS: POTASSIUM 4.4 mmol/L (3.5-5.1)
[2024-04-04 16:27] LABS: CALCIUM 9.5 mg/dL (8.5-10.1)
[2024-04-04 16:28] LABS: BLOOD UREA NITROGEN 14.8 mg/dL (7-18)
[2024-04-04 16:30] LABS: CREATININE 0.8 mg/dL (0.55-1.3)
[2024-04-04 16:32] LABS: BILIRUBIN,TOTAL 0.5 mg/dL (0.2-1); TOT PROT 7.2 g/dl (6.4-8.2)
[2024-04-04] MEDS ORDERED: ACETAMINOPHEN INJECTION 100 ML IVPB ONE (17:48)
[2024-04-04] MEDS: ACETAMINOPHEN 1000 MG/100 ML BAG IVPB ONE (17:51)
[2024-04-04] MEDS ORDERED: morphine SULFATE 4 MG/ML VIAL ONE (20:24)
[2024-04-04] MEDS: morphine SULFATE 4 MG/ML VIAL IVPUSH ONE (20:30)
[2024-04-04] MEDS ORDERED: HYDROmorphone HCl 2 MG/ML VIAL ONE (21:51)
[2024-04-04] MEDS: HYDROmorphone HCl 2 MG/ML VIAL IVPUSH ONE (22:04)
[2024-04-04] MEDS: LACTATED RINGERS SOLUTION 1,000 ML/1,000 ML INFUS.BAG IV SCH ×2 (22:05→23:41)
[2024-04-05] MEDS: PANTOPRAZOLE SODIUM 40 MG VIAL IVPUSH SCH (00:42)
[2024-04-05] MEDS: ACETAMINOPHEN 1000 MG/100 ML BAG IVPB SCH (00:45)
[2024-04-05 05:38] LABS: PH,URINE 5.5 (5.0-8.0); URINE APPEARANCE CLEAR; URINE BILIRUBIN NEGATIVE (NEGATIVE); URINE COLOR YELLOW; URINE GLUCOSE (UA) NEGATIVE (NEGATIVE); URINE KETONE NEGATIVE (NEGATIVE); URINE LEUK ESTERASE NEGATIVE (NEGATIVE); URINE NITRITE NEGATIVE (NEGATIVE); URINE PROTEIN TRACE (NEGATIVE)
[2024-04-05] MEDS: ONDANSETRON 4 MG/2 ML VIAL IVPUSH PRN (06:11)
[2024-04-05 08:16] LABS: HEMATOCRIT 33.5 % (32.4-45.2); HEMOGLOBIN 11.6 GM/dL (10.7-15.3); MCH 32.3 pg (25.7-33.7); MCHC 34.6 g/dl (32.0-36.0); MEAN CELL VOLUME 93.3 fl (80-96); MEAN PLT VOLUME 8.4 fl (7.5-11.1); PLATELET COUNT 161 10^3/uL (134-434); RBC 3.59 M/mm3 (3.60-5.2); RDW 13.3 % (11.6-15.6); WHITE BLOOD COUNT 4.8 K/mm3 (4.0-10.0)
[2024-04-05 08:23] LABS: POTASSIUM 4.1 mmol/L (3.5-5.1)
[2024-04-05] MEDS: ENOXAPARIN NA (PORCINE) 40 MG/0.4 ML DISP.SYRIN SQ SCH (09:21)
[2024-04-05] MEDS: FLUoxetine HCL 20 MG CAPSULE PO SCH (09:23)
[2024-04-05 10:12] LABS: ALBUMIN 3.2 g/dl (3.4-5.0); BLOOD UREA NITROGEN 11.8 mg/dL (7-18); CALCIUM 8.5 mg/dL (8.5-10.1); CREATININE 0.7 mg/dL (0.55-1.3); MAGNESIUM 1.9 mg/dL (1.8-2.4); PHOSPHOROUS 3.8 mg/dL (2.5-4.9); TOT PROT 5.7 g/dl (6.4-8.2)
[2024-04-05] MEDS: SODIUM BICARBONATE 325 MG TABLET PO SCH (10:50)
[2024-04-05 14:08] VITALS: RESP 18
[2024-04-05 15:45] LABS: URINE BENZODIAZEPINES NEGATIVE (NEGATIVE)
[2024-04-05 15:47] LABS: COCAINE, UR NEGATIVE (NEGATIVE); METHADONE, UR NEGATIVE (NEGATIVE); URINE AMPHETAMINES NEGATIVE (NEGATIVE)
[2024-04-05 15:48] LABS: PHENCYCLIDINE,URINE NEGATIVE (NEGATIVE); URINE BARBITURATES NEGATIVE (NEGATIVE)
[2024-04-05 15:50] LABS: OPIATES, URI POSITIVE (NEGATIVE)
[2024-04-05] MEDS: LACTATED RINGERS SOLUTION 1,000 ML/1,000 ML INFUS.BAG IV SCH (17:01)
[2024-04-05] MEDS: THIAMINE HCL 200 MG/2 ML VIAL IVPB SCH (21:36)
[2024-04-05] MEDS ORDERED: THIAMINE HCL 200 MG/2 ML VIAL IVPB SCH (23:10)
[2024-04-06] MEDS: FOLIC ACID 1 MG TABLET (FP) PO SCH (00:10)
[2024-04-06] MEDS: SIMETHICONE 80 MG TAB.CHEW (FP) PO SCH (00:20)
[2024-04-06 09:32] LABS: HEMATOCRIT 34.6 % (32.4-45.2); HEMOGLOBIN 11.9 GM/dL (10.7-15.3); MCH 31.9 pg (25.7-33.7); MCHC 34.3 g/dl (32.0-36.0); MEAN CELL VOLUME 92.9 fl (80-96); MEAN PLT VOLUME 8.7 fl (7.5-11.1); PLATELET COUNT 176 10^3/uL (134-434); RBC 3.72 M/mm3 (3.60-5.2); RDW 13.3 % (11.6-15.6); WHITE BLOOD COUNT 6.5 K/mm3 (4.0-10.0)
[2024-04-06 09:58] LABS: POTASSIUM 4.1 mmol/L (3.5-5.1)
[2024-04-06 10:04] LABS: CALCIUM 8.9 mg/dL (8.5-10.1)
[2024-04-06 10:05] LABS: BLOOD UREA NITROGEN 8.1 mg/dL (7-18)
[2024-04-06 10:06] LABS: CREATININE 0.7 mg/dL (0.55-1.3)
[2024-04-06 10:34] LABS: ALBUMIN 3.4 g/dl (3.4-5.0)
[2024-04-06 10:38] LABS: BILIRUBIN,DIRECT 0.1 mg/dL (0.0-0.2)
[2024-04-06 10:39] LABS: BILIRUBIN,TOTAL 0.6 mg/dL (0.2-1)
[2024-04-07 07:48] LABS: HEMATOCRIT 33.6 % (32.4-45.2); HEMOGLOBIN 11.4 GM/dL (10.7-15.3); MCH 31.5 pg (25.7-33.7); MCHC 33.8 g/dl (32.0-36.0); MEAN CELL VOLUME 93.1 fl (80-96); MEAN PLT VOLUME 8.6 fl (7.5-11.1); PLATELET COUNT 170 10^3/uL (134-434); RBC 3.61 M/mm3 (3.60-5.2); RDW 12.7 % (11.6-15.6); WHITE BLOOD COUNT 6.1 K/mm3 (4.0-10.0)
[2024-04-07 08:03] LABS: POTASSIUM 4.4 mmol/L (3.5-5.1)
[2024-04-07 08:10] LABS: CALCIUM 8.7 mg/dL (8.5-10.1)
[2024-04-07 08:11] LABS: ALBUMIN 3.2 g/dl (3.4-5.0); BLOOD UREA NITROGEN 7.1 mg/dL (7-18)
[2024-04-07 08:14] LABS: CREATININE 0.7 mg/dL (0.55-1.3)
[2024-04-07 08:15] LABS: BILIRUBIN,TOTAL 0.6 mg/dL (0.2-1); TOT PROT 5.8 g/dl (6.4-8.2)
[2024-04-07 08:18] VITALS: BP 137/88; PULSE 60; TEMP 99.2
[2024-04-07 23:59] VITALS: BMI 29.0
== END 2024-04-07 17:51 | disposition home or self-care (01) | DRG 282 ==
LOC: JER 14:15 → JERBED 22:05 → J6S 23:45
PROVIDERS: ADMIT Internal Medicine; ATTEND Internal Medicine
DX: K85.90 Acute pancreatitis without necrosis or infection, unspecified (principal); F32.A Depression, unspecified; I48.91 Unspecified atrial fibrillation; F19.90 Other psychoactive substance use, unspecified, uncomplicated; K86.2 Cyst of pancreas; K76.0 Fatty (change of) liver, not elsewhere classified; R74.01 Elevation of levels of liver transaminase levels; F10.10 Alcohol abuse, uncomplicated
CPT/HCPCS: 36415; 74177-TC; 80048; 80053; 80061; 80076; 80307; 81003; 83690; 83735; 84100; 84484; 84703; 85025; 85027; 93005; 93010; 99285-25; J0131; Q9967

== ENCOUNTER 2024-11-08 08:56 | Observation (INO) | payer OTHER ==
[2024-11-08] MEDS ORDERED: METOCLOPRAMIDE HCL INJECTION 10 MG/2 ML VIAL ONE (09:32)
[2024-11-08 09:58] LABS: HEMATOCRIT 46.6 % (32.4-45.2); HEMOGLOBIN 15.5 GM/dL (10.7-15.3); MCH 31.2 pg (25.7-33.7); MCHC 33.4 g/dl (32.0-36.0); MEAN CELL VOLUME 93.5 fl (80-96); MEAN PLT VOLUME 9.4 fl (7.5-11.1); PLATELET COUNT 225 10^3/uL (134-434); RBC 4.98 M/mm3 (3.60-5.2); RDW 13.1 % (11.6-15.6); WHITE BLOOD COUNT 16.4 K/mm3 (4.0-10.0)
[2024-11-08 10:03] LABS: POTASSIUM 4.4 mmol/L (3.5-5.1)
[2024-11-08 10:05] LABS: CALCIUM 10.2 mg/dL (8.5-10.1)
[2024-11-08 10:06] LABS: ALBUMIN 4.5 g/dl (3.4-5.0); MAGNESIUM 1.8 mg/dL (1.8-2.4)
[2024-11-08 10:09] LABS: CREATININE 0.9 mg/dL (0.55-1.3)
[2024-11-08 10:10] LABS: BILIRUBIN,TOTAL 0.6 mg/dL (0.2-1)
[2024-11-08] MEDS: LACTATED RINGERS SOLUTION 1000 ML INFUS.BAG IV ONE (10:10)
[2024-11-08] MEDS: METOCLOPRAMIDE HCL INJECTION 10 MG/2 ML VIAL IVPUSH ONE (10:10)
[2024-11-08 10:11] LABS: TOT PROT 7.9 g/dl (6.4-8.2)
[2024-11-08] MEDS ORDERED: ACETAMINOPHEN INJECTION 100 ML ONE (10:13)
[2024-11-08] MEDS ORDERED: MAGNESIUM 1GM/D5W - 1 GM/100 ML IVPB IVPB ONE (10:14)
[2024-11-08] MEDS: ACETAMINOPHEN 1000 MG/100 ML BAG IVPB ONE (10:44)
[2024-11-08] MEDS: MAGNESIUM 1GM/D5W - 1 GM/100 ML IVPB IVPB ONE (10:49)
[2024-11-08] MEDS ORDERED: LORazepam 2 MG/ML SDV VIAL ONE (11:04)
[2024-11-08] MEDS ORDERED: FAMOTIDINE 20 MG/50 ML IVPB 20 MG/50 ML MG IVPB ONE (11:04)
[2024-11-08] MEDS: LORazepam 2 MG/ML SDV VIAL IVPUSH ONE (11:08)
[2024-11-08] MEDS: MAG HYDROX/AL HYDROX/SIMETH 30 ML UNIT-DOSE CUP PO ONE (11:08)
[2024-11-08 11:54] LABS: ANISOCYTOSIS 0; MACROCYTOSIS 0
[2024-11-08] MEDS: FAMOTIDINE 20 MG/50 ML IVPB 20 MG/50 ML MG IVPB ONE (11:54)
[2024-11-08] MEDS: LACTATED RINGERS SOLUTION 1,000 ML/1,000 ML INFUS.BAG IV STA (11:54)
[2024-11-08] MEDS ORDERED: DEXAMETHASONE SOD PHOSPHATE 10 MG/1 ML VIAL ONE (11:59)
[2024-11-08] MEDS: DEXAMETHASONE SOD PHOSPHATE 10 MG/1 ML VIAL IVPUSH ONE (12:07)
[2024-11-08 14:48] LABS: PHOSPHOROUS 1.4 mg/dL (2.5-4.9)
[2024-11-08 15:35] LABS: COCAINE, UR NEGATIVE (NEGATIVE); URINE AMPHETAMINES NEGATIVE (NEGATIVE); URINE BARBITURATES NEGATIVE (NEGATIVE); URINE BENZODIAZEPINES NEGATIVE (NEGATIVE)
[2024-11-08 15:36] LABS: METHADONE, UR NEGATIVE (NEGATIVE); OPIATES, URI NEGATIVE (NEGATIVE); PHENCYCLIDINE,URINE NEGATIVE (NEGATIVE)
[2024-11-08 15:39] LABS: PH,URINE 8.5 (5.0-8.0); URINE APPEARANCE CLEAR; URINE BILIRUBIN NEGATIVE (NEGATIVE); URINE COLOR YELLOW; URINE GLUCOSE (UA) NEGATIVE (NEGATIVE); URINE KETONE 1+ (NEGATIVE); URINE LEUK ESTERASE NEGATIVE (NEGATIVE); URINE NITRITE NEGATIVE (NEGATIVE); URINE PROTEIN TRACE (NEGATIVE); URINE UROBILINOGEN 0.2 mg/dL (0.2-1.0)
[2024-11-08] MEDS: LACTATED RINGERS SOLUTION 1,000 ML/1,000 ML INFUS.BAG IV SCH (16:13)
[2024-11-08] MEDS ORDERED: ONDANSETRON 4 MG/2 ML VIAL ONE (16:35)
[2024-11-08] MEDS: ONDANSETRON 4 MG/2 ML VIAL IVPUSH PRN (16:44)
[2024-11-08] MEDS: HEPARIN NA (PORCINE) 5,000 UNITS/ML 1ML VIAL SQ SCH (21:21)
[2024-11-09 09:02] LABS: HEMOGLOBIN 12.8 GM/dL (10.7-15.3); LYMPH % 6.5 % (8-40); MCH 30.7 pg (25.7-33.7); MCHC 32.1 g/dl (32.0-36.0); MEAN CELL VOLUME 95.4 fl (80-96); MEAN PLT VOLUME 9.8 fl (7.5-11.1); MONO % 4.5 % (3.8-10.2); PLATELET COUNT 178 10^3/uL (134-434); RBC 4.19 M/mm3 (3.60-5.2); WHITE BLOOD COUNT 15.7 K/mm3 (4.0-10.0)
[2024-11-09 09:23] LABS: POTASSIUM 4.2 mmol/L (3.5-5.1)
[2024-11-09 09:24] LABS: BLOOD UREA NITROGEN 11.8 mg/dL (7-18); CALCIUM 9.2 mg/dL (8.5-10.1); MAGNESIUM 1.7 mg/dL (1.8-2.4)
[2024-11-09 09:28] LABS: CREATININE 0.7 mg/dL (0.55-1.3)
[2024-11-09] MEDS: metoPROLOL SUCCINATE 25 MG TAB.SR.24H (FP) PO SCH (09:44)
[2024-11-10 08:01] LABS: BASO % 0.2 % (0-2.0); EOS % 0.3 % (0-4.5); HEMOGLOBIN 12.5 GM/dL (10.7-15.3); LYMPH % 16.4 % (8-40); MCH 31.6 pg (25.7-33.7); MCHC 32.9 g/dl (32.0-36.0); MEAN CELL VOLUME 95.9 fl (80-96); MEAN PLT VOLUME 9.7 fl (7.5-11.1); MONO % 7.3 % (3.8-10.2); NEUT % 75.8 % (42.8-82.8); PLATELET COUNT 155 10^3/uL (134-434); RBC 3.96 M/mm3 (3.60-5.2); RDW 13.4 % (11.6-15.6); WHITE BLOOD COUNT 9.8 K/mm3 (4.0-10.0)
[2024-11-10 08:18] LABS: POTASSIUM 4.5 mmol/L (3.5-5.1)
[2024-11-10 08:19] LABS: CALCIUM 8.9 mg/dL (8.5-10.1)
[2024-11-10 08:20] LABS: BLOOD UREA NITROGEN 14.5 mg/dL (7-18); MAGNESIUM 1.8 mg/dL (1.8-2.4)
[2024-11-10 08:23] LABS: CREATININE 0.7 mg/dL (0.55-1.3)
[2024-11-10 08:25] LABS: BILIRUBIN,TOTAL 0.3 mg/dL (0.2-1)
[2024-11-10 08:29] LABS: ALBUMIN 3.3 g/dl (3.4-5.0); TOT PROT 5.8 g/dl (6.4-8.2)
[2024-11-10] MEDS: SODIUM CHLORIDE 1,000 ML IV SCH (11:32)
[2024-11-10 14:16] VITALS: BMI 23.3
[2024-11-11 08:11] LABS: BASO % 0.2 % (0-2.0); EOS % 0.9 % (0-4.5); HEMOGLOBIN 11.8 GM/dL (10.7-15.3); MCH 31.7 pg (25.7-33.7); MCHC 33.7 g/dl (32.0-36.0); MEAN CELL VOLUME 93.9 fl (80-96); MEAN PLT VOLUME 9.3 fl (7.5-11.1); MONO % 7.8 % (3.8-10.2); NEUT % 71.1 % (42.8-82.8); PLATELET COUNT 135 10^3/uL (134-434); RBC 3.72 M/mm3 (3.60-5.2); RDW 12.9 % (11.6-15.6); WHITE BLOOD COUNT 7.4 K/mm3 (4.0-10.0)
[2024-11-11 08:17] LABS: CALCIUM 8.4 mg/dL (8.5-10.1)
[2024-11-11 08:18] LABS: MAGNESIUM 1.9 mg/dL (1.8-2.4)
[2024-11-11 08:19] LABS: POTASSIUM 3.8 mmol/L (3.5-5.1)
[2024-11-11 08:21] LABS: CREATININE 0.5 mg/dL (0.55-1.3)
[2024-11-11 08:22] LABS: BILIRUBIN,TOTAL 0.4 mg/dL (0.2-1); TOT PROT 5.3 g/dl (6.4-8.2)
[2024-11-11] MEDS: FLUoxetine HCL 20 MG CAPSULE PO SCH (15:50)
[2024-11-12 09:47] LABS: BASO % 0.3 % (0-2.0); EOS % 1.6 % (0-4.5); HEMATOCRIT 34.4 % (32.4-45.2); HEMOGLOBIN 11.9 GM/dL (10.7-15.3); LYMPH % 32.1 % (8-40); MCH 32.2 pg (25.7-33.7); MCHC 34.4 g/dl (32.0-36.0); MEAN CELL VOLUME 93.4 fl (80-96); MEAN PLT VOLUME 9.3 fl (7.5-11.1); MONO % 7.3 % (3.8-10.2); NEUT % 58.7 % (42.8-82.8); PLATELET COUNT 136 10^3/uL (134-434); RBC 3.68 M/mm3 (3.60-5.2); RDW 12.9 % (11.6-15.6); WHITE BLOOD COUNT 4.9 K/mm3 (4.0-10.0)
[2024-11-12 09:52] LABS: POTASSIUM 3.8 mmol/L (3.5-5.1)
[2024-11-12 10:07] LABS: BLOOD UREA NITROGEN 7.7 mg/dL (7-18); CALCIUM 8.5 mg/dL (8.5-10.1); MAGNESIUM 1.9 mg/dL (1.8-2.4)
[2024-11-12 10:10] LABS: CREATININE 0.6 mg/dL (0.55-1.3)
[2024-11-12 10:11] LABS: BILIRUBIN,TOTAL 1.2 mg/dL (0.2-1)
[2024-11-12 10:12] LABS: TOT PROT 5.4 g/dl (6.4-8.2)
[2024-11-12] MEDS: PEG 3350/NA SULF BICARB CL/KCL 4000 ML SOLN.RECON PO ONE (16:29)
[2024-11-13 08:45] LABS: BASO % 0.3 % (0-2.0); HEMATOCRIT 32.2 % (32.4-45.2); HEMOGLOBIN 10.9 GM/dL (10.7-15.3); LYMPH % 31.9 % (8-40); MCH 31.6 pg (25.7-33.7); MCHC 33.8 g/dl (32.0-36.0); MEAN CELL VOLUME 93.6 fl (80-96); MEAN PLT VOLUME 9.4 fl (7.5-11.1); NEUT % 58.8 % (42.8-82.8); PLATELET COUNT 138 10^3/uL (134-434); RBC 3.44 M/mm3 (3.60-5.2); RDW 12.9 % (11.6-15.6); WHITE BLOOD COUNT 4.1 K/mm3 (4.0-10.0)
[2024-11-13 09:05] LABS: CHLORIDE 124 mmol/L (98-107); SODIUM 148 mmol/L (136-145)
[2024-11-13 09:08] LABS: BLOOD UREA NITROGEN 6.3 mg/dL (7-18); CO2 20 mmol/L (21-32); GLUCOSE,RANDOM 55 mg/dL (74-106); MAGNESIUM 1.1 mg/dL (1.8-2.4)
[2024-11-13 09:11] LABS: CREATININE 0.2 mg/dL (0.55-1.3); SGOT/AST 38 U/L (15-37); SGPT/ALT 60 U/L (13-61)
[2024-11-13 09:12] LABS: BILIRUBIN,TOTAL 0.3 mg/dL (0.2-1)
[2024-11-13 09:13] LABS: TOT PROT 3.4 g/dl (6.4-8.2)
[2024-11-13 09:14] LABS: ALK PHOS 47 U/L (45-117)
[2024-11-13 09:31] LABS: ANION GAP 5 mmol/L (4-13); CALCIUM 5.6 mg/dL (8.5-10.1); POTASSIUM 2.7 mmol/L (3.5-5.1)
[2024-11-13] MEDS ORDERED: DEXTROSE 5%-0.45% SALINE 1,000 ML IV SCH (10:15)
[2024-11-13] MEDS ORDERED: DEXTROSE 50%-WATER 25 GM/50 ML DISP.SYRIN IVPUSH ONE (10:30)
[2024-11-13] MEDS ORDERED: POTASSIUM CHLORIDE ORAL LIQUID 20 MEQ/15 ML PO ONE (10:45)
[2024-11-13 11:49] LABS: BASO % 0.2 % (0-2.0); EOS % 1.8 % (0-4.5); HEMATOCRIT 35.4 % (32.4-45.2); HEMOGLOBIN 12.1 GM/dL (10.7-15.3); LYMPH % 34.8 % (8-40); MCHC 34.3 g/dl (32.0-36.0); MEAN CELL VOLUME 93.4 fl (80-96); MEAN PLT VOLUME 9.6 fl (7.5-11.1); MONO % 7.5 % (3.8-10.2); NEUT % 55.7 % (42.8-82.8); PLATELET COUNT 150 10^3/uL (134-434); RBC 3.79 M/mm3 (3.60-5.2); WHITE BLOOD COUNT 5.1 K/mm3 (4.0-10.0)
[2024-11-13 12:03] LABS: POTASSIUM 4.2 mmol/L (3.5-5.1)
[2024-11-13 12:06] LABS: BLOOD UREA NITROGEN 8.8 mg/dL (7-18); MAGNESIUM 1.8 mg/dL (1.8-2.4)
[2024-11-13 12:08] LABS: ALBUMIN 3.3 g/dl (3.4-5.0); CALCIUM 8.7 mg/dL (8.5-10.1)
[2024-11-13 12:09] LABS: CREATININE 0.5 mg/dL (0.55-1.3)
[2024-11-13 12:11] LABS: BILIRUBIN,TOTAL 0.5 mg/dL (0.2-1)
[2024-11-13 12:14] LABS: TOT PROT 5.6 g/dl (6.4-8.2)
[2024-11-13 15:25] VITALS: RESP 16
[2024-11-13 17:48] VITALS: BP 129/80; PULSE 49; TEMP 98.8
== END 2024-11-13 17:54 | disposition home or self-care (01) ==
LOC: JER 08:56 → JERBED 13:48 → J7W 18:55
PROVIDERS: ADMIT Internal Medicine
PROC: 0DB98ZX Excision of Duodenum, Via Natural or Artificial Opening Endoscopic, Diagnostic (ICD-10-PCS; principal; 2024-11-08)
PROC: 0DB68ZX Excision of Stomach, Via Natural or Artificial Opening Endoscopic, Diagnostic (ICD-10-PCS; 2024-11-08)
PROC: 0DBB8ZX Excision of Ileum, Via Natural or Artificial Opening Endoscopic, Diagnostic (ICD-10-PCS; 2024-11-08)
PROC: 0DBN8ZX Excision of Sigmoid Colon, Via Natural or Artificial Opening Endoscopic, Diagnostic (ICD-10-PCS; 2024-11-08)
PROC: 3E0337Z Introduction of Electrolytic and Water Balance Substance into Peripheral Vein, Percutaneous Approach (ICD-10-PCS; 2024-11-08)
PROC: 3E033NZ Introduction of Analgesics, Hypnotics, Sedatives into Peripheral Vein, Percutaneous Approach (ICD-10-PCS; 2024-11-08)
PROC: 3E033GC Introduction of Other Therapeutic Substance into Peripheral Vein, Percutaneous Approach (ICD-10-PCS; 2024-11-08)
DX: K52.9 Noninfective gastroenteritis and colitis, unspecified (principal); F12.90 Cannabis use, unspecified, uncomplicated; I48.91 Unspecified atrial fibrillation; K44.9 Diaphragmatic hernia without obstruction or gangrene; F41.8 Other specified anxiety disorders; R10.13 Epigastric pain; M54.50 Low back pain, unspecified; G89.29 Other chronic pain; Z90.49 Acquired absence of other specified parts of digestive tract; F17.200 Nicotine dependence, unspecified, uncomplicated; Z87.19 Personal history of other diseases of the digestive system; Z88.0 Allergy status to penicillin; Z88.5 Allergy status to narcotic agent; Z88.8 Allergy status to other drugs, medicaments and biological substances
CPT/HCPCS: 0241U-QW; 36415; 71045-TC-FY; 74177-TC; 80048; 80053; 80307; 81003; 83690; 83735; 84100; 84484; 84703; 85025; 87040; 87086; 88305-TC; 88342-TC; 93005; 93010; 96361; 96365; 96367; 96375; 99285-25; G0378; J0131; J1100; J1644; Q9967

== ENCOUNTER 2024-12-29 15:03 | Emergency (ER) | payer OTHER ==
[2024-12-29 15:19] VITALS: BP 110/79; PULSE 70; RESP 16; TEMP 98.6; BMI 23.4
== END 2024-12-29 17:59 | disposition home or self-care (01) ==
LOC: FER 15:03
DX: M54.9 Dorsalgia, unspecified (principal); G89.29 Other chronic pain
CPT/HCPCS: 36415; 71046-TC-FY; 84484; 93005; 99285-25